=== PATIENT | female | born 1995 | race Caucasian/White ===

== ENCOUNTER → 2017-04-22 | Outpatient (CLI) | payer OTHER ==
[~2017-04-22] MED LIST: ACET325 PO; ACET500 PO; ALBU4; ALBU4 INH; ALBU4 PO; ALBU90OI INH; ALBU90OI6 INH; ALBU90OI61 INH; AMOCLA400S PO; AMOCLA875 PO; AMOX500 PO; AMOX875 PO; AMPDEX5 PO; ANTIBIOTICS; ARIP10 PO; ARIP30 PO; AZIT250 PO; Augmentin 500-1 EACH PO; Augmentin600 MG/5 M PO; BACPOLTO30 TOP; CALCA500CH PO; CEFD300 PO; CEFP200 PO; CEPH500 PO; CIPR500 PO; CLOT1TC TOP; CODACE30 PO; CYCL10 PO; Cefdinir300 MG PO; Cipro250 MG PO; Cipro250 MG/5 M PO; Cipro500 MG PO; Crutch1 EACH MISC; DOC250 PO; DOCU100 PO; DONE5 PO; DOXA1 PO; DOXA2 PO; DOXY100 PO; DOXY100T53 PO; Diflucan100 MG PO; ERYT.5TO LEFTEYE; ERYT250 PO; ERYT500 PO; FERR325; FERSU300 PO; FLUC150A PO; FLUO10 PO; Flagyl500 MG PO; HYDACE5 PO; HYDHCL25 PO; HYDPAM50 PO; HYDR120LO TOP; HYDR1TAB94 PO; HYDR25SUP PR; IBUP400 PO; IBUP600 PO; IBUP800 PO; IMIP10 PO; LEVFLO500 PO; LITH300C PO; MACRODANTIN; MAGCIT300 PO; MECL12.5 PO; MEDR150I IM; METCAR500 PO; METCAR750 PO; METPHE18ER; MINE10T PO; MIRT15 PO; MIRT30 PO; MULVITMINE PO; Macrobid 100 M100 MG PO; Mirena1 EACH; Mobic15 MG PO; NAPR500; NAPR500 PO; NITR100CA PO; NYST100TC TOP; Naprosyn500 MG PO; Norflex100 MG PO; Nystatin100000 UN1 PO; OMEPRAZOLE MAGN20 MG PO; ONDA4 PO; ONDA4ODT; ONDA4ODT MM; ONDA8ODT MM; OXYACE5T PO; OXYB5 PO; OXYC5 PO; PARO30 PO; PHENA100 PO; PHENA200 PO; PHENERGAN; POLY17UD; POLY17UD PO; PRAZ1 PO; PRENZ PO; PROM25 PO; PROZ; Percocet 5-3251 EACH PO; Prednisone20 MG PO; Pyridium100 MG PO; Pyridium200 MG PO; QUET200 PO; REMERON; RXHYDACE PO; RXONDA4ODT MM; RXOXYACE PO; RXPROM25 PO; RXPROM25S PR; SENN187 PO; SEPTRA; SEPTRA PO; SERT100 PO; SOMA250 MG PO; SULTRIDS PO; SULTRIEL PO; SULTRISS PO; SUMA25 PO; TETR250 PO; TOLT4 PO; TRAM50 PO; TRIM100 PO; Tylenol325 MG PO; Verotin-Gr Cap1 EACH; Verotin-Gr Cap1 EACH PO; Vistaril25 MG PO; ZOLP5 PO; Zithromax250 MG PO; Zofran Odt4 MG PO; Zofran Odt4 MG SL; Zofran Odt8 MG SL; Zofran4 MG; Zofran4 MG PO; [UNRECOGNIZED DRUG - OTHER] PO
== END ==
LOC: LAB SHORT 14:30
DX: N39.0 Urinary tract infection, site not specified (principal)
CPT/HCPCS: 87077; 87086; 87186

== ENCOUNTER → 2017-05-29 | Outpatient (CLI) | payer OTHER ==
[2017-05-29 18:48] LABS: BASOPHILS ABSOLUTE AUTO 0.02 K/mm3 (0.00-0.23); BASOPHILS PERCENT AUTO 0 % (0-2); EOSINOPHILS ABSOLUTE AUTO 0.35 K/mm3 (0.00-0.68); EOSINOPHILS PERCENT AUTO 4 % (0-6); Hematocrit 38.5 % (33.0-51.0); Hemoglobin 12.6 g/dL (11.5-16.0); IMMATURE GRAN ABSOLUTE AUTO 0.01 K/mm3 (0.00-0.10); IMMATURE GRAN PERCENT AUTO 0 % (0-1); LYMPHOCYTES ABSOLUTE AUTO 1.77 K/mm3 (0.84-5.20); LYMPHOCYTES PERCENT AUTO 21 % (21-46); MONOCYTES ABSOLUTE AUTO 0.53 K/mm3 (0.16-1.47); MONOCYTES PERCENT AUTO 6 % (4-13); Mean Corpuscular HGB 30.4 pg (26.0-34.0); Mean Corpuscular HGB Conc 32.7 g/dL (31.5-36.5); Mean Corpuscular Volume 93 fL (80-100); Mean Platelet Volume 10.9 fL (9.1-12.4); NEUTROPHILS ABSOLUTE AUTO 5.84 K/mm3 (1.96-9.15); NEUTROPHILS PERCENT AUTO 69 % (41-73); Platelet Count 281 K/mm3 (150-400); RDW Coefficient Variation 13.4 % (11.7-14.2); RDW Standard Deviation 46.1 fL (35.1-46.3); Red Blood Cell Count 4.14 M/mm3 (3.80-5.20); White Blood Cell Count 8.52 K/mm3 (4.00-11.30)
[2017-05-29 19:01] LABS: Alanine Aminotransfer (ALT/SGP 16 U/L (12-78); Albumin, Blood 3.9 g/dL (3.4-5.0); Alk Phos 69 U/L (40-126); Anion Gap 11 mmol/L (6-16); Aspartate Aminotrans (AST/SGOT 8 U/L (12-37); Bilirubin, Total 0.2 mg/dL (0.1-1.0); Blood Urea Nitrogen 6 mg/dL (8-24); Bun/Creatinine Ratio 9.2 (12.0-20.0); CO2, Blood 25 mmol/L (21-32); Chloride, Blood 105 mmol/L (98-108); Creatinine, Blood 0.65 mg/dL (0.40-1.00); Globulin, Blood 4.1 g/dL (2.2-4.0); Glomerular Filtration Rate >60 (60-); Glucose, Blood 93 mg/dL (70-99); Potassium, Blood 4.1 mmol/L (3.5-5.5); Sodium, Blood 141 mmol/L (136-145)
== END ==
LOC: LAB SHORT 18:42
PROVIDERS: Family Medicine
DX: N39.0 Urinary tract infection, site not specified (principal)
CPT/HCPCS: 80053; 85025; 87070; 87077; 87086; 87186; 87205

== ENCOUNTER 2018-02-07 23:15 | Emergency (ER) | payer OTHER ==
[~2018-02-07] VITALS: Ht 167.6 cm; Wt 90.7 kg
[~2018-02-07 23:15] MED LIST changes: -Flagyl500 MG PO; -Prednisone20 MG PO
[2018-02-08] MEDS ORDERED: Prednisone20 MG PO (03:03)
== END 2018-02-08 03:15 | disposition home or self-care (01) ==
LOC: ER 23:15
DX: J45.901 Unspecified asthma with (acute) exacerbation (principal); F31.9 Bipolar disorder, unspecified; F41.9 Anxiety disorder, unspecified; Z88.0 Allergy status to penicillin; Z91.040 Latex allergy status; Z91.018 Allergy to other foods; Z88.2 Allergy status to sulfonamides; Z88.1 Allergy status to other antibiotic agents; Z88.8 Allergy status to other drugs, medicaments and biological substances; Z79.899 Other long term (current) drug therapy; Z79.51 Long term (current) use of inhaled steroids
CPT/HCPCS: 71046; 94640; 99283-25

== ENCOUNTER → 2018-04-05 | Outpatient (CLI) | payer OTHER ==
[~2018-04-05] MED LIST changes: +Flagyl500 MG PO; +PYRI100 PO; +Prednisone20 MG PO; +VENL37.5ER PO; +Vibramycin100 MG PO
== END | disposition home or self-care (01) ==
LOC: LAB EV 13:25 → LAB SHORT 13:25
DX: N39.0 Urinary tract infection, site not specified (principal)
CPT/HCPCS: 87077; 87086; 87186

== ENCOUNTER 2018-04-16 11:35 | Emergency (ER) | payer OTHER ==
[~2018-04-16] VITALS: Ht 167.6 cm; Wt 86.2 kg
[~2018-04-16 11:35] MED LIST changes: -PYRI100 PO; -VENL37.5ER PO; -Vibramycin100 MG PO
[2018-04-16 12:17] LABS: BASOPHILS ABSOLUTE AUTO 0.02 K/mm3 (0.00-0.23); BASOPHILS PERCENT AUTO 0 % (0-2); EOSINOPHILS ABSOLUTE AUTO 0.21 K/mm3 (0.00-0.68); EOSINOPHILS PERCENT AUTO 4 % (0-6); Hemoglobin 13.2 g/dL (11.5-16.0); IMMATURE GRAN ABSOLUTE AUTO 0.01 K/mm3 (0.00-0.10); IMMATURE GRAN PERCENT AUTO 0 % (0-1); LYMPHOCYTES ABSOLUTE AUTO 1.45 K/mm3 (0.84-5.20); LYMPHOCYTES PERCENT AUTO 24 % (21-46); MONOCYTES ABSOLUTE AUTO 0.48 K/mm3 (0.16-1.47); MONOCYTES PERCENT AUTO 8 % (4-13); Mean Corpuscular HGB 30.4 pg (26.0-34.0); Mean Corpuscular HGB Conc 32.2 g/dL (31.5-36.5); Mean Corpuscular Volume 95 fL (80-100); Mean Platelet Volume 11.7 fL (9.1-12.4); NEUTROPHILS ABSOLUTE AUTO 3.79 K/mm3 (1.96-9.15); NEUTROPHILS PERCENT AUTO 64 % (41-73); Platelet Count 235 K/mm3 (150-400); RDW Coefficient Variation 12.8 % (11.7-14.2); Red Blood Cell Count 4.34 M/mm3 (3.80-5.20); White Blood Cell Count 5.96 K/mm3 (4.00-11.30)
[2018-04-16 12:21] LABS: Source, Urine Clean Catch
[2018-04-16 12:27] LABS: Bilirubin, Urine Neg (Neg); Blood, Urine Neg (Neg); Glucose Qualitative, Urine Neg (Neg); Ketones, Urine Neg (Neg); Leukocyte Esterase, Urine Neg (Neg); Nitrite, Urine Neg (Neg); Protein, Urine Neg (Neg); Specific Gravity, Urine 1.005 (1.003-1.022); Urobilinogen, Urine NORM (Normal)
[2018-04-16 12:28] LABS: Appearance, Urine Clear (Clear); Color, Urine Yellow (P-Yellow)
[2018-04-16 12:29] LABS: Alanine Aminotransfer (ALT/SGP 27 U/L (12-78); Alk Phos 71 U/L (50-136); Anion Gap 6 mmol/L (6-16); Aspartate Aminotrans (AST/SGOT 18 U/L (12-37); Bilirubin, Total 0.5 mg/dL (0.1-1.0); Blood Urea Nitrogen 7 mg/dL (8-24); Bun/Creatinine Ratio 9.6 (12.0-20.0); CO2, Blood 23 mmol/L (21-32); Calcium, Blood 8.4 mg/dL (8.5-10.1); Chloride, Blood 110 mmol/L (98-108); Creatinine, Blood 0.73 mg/dL (0.40-1.00); Globulin, Blood 3.9 g/dL (2.2-4.0); Glomerular Filtration Rate >60 (60-); Glucose, Blood 90 mg/dL (70-99); Potassium, Blood 3.8 mmol/L (3.5-5.5); Sodium, Blood 139 mmol/L (136-145); Total Protein, Blood 7.9 g/dL (6.4-8.2)
[2018-04-16] MEDS ORDERED: VENL37.5ER PO (13:39)
[2018-04-16] MEDS ORDERED: PYRI100 PO (14:24)
[2018-04-16] MEDS ORDERED: MECL12.5 PO (14:24)
== END 2018-04-16 14:32 | disposition home or self-care (01) ==
LOC: ER 11:35
PROVIDERS: Physician Assistant
DX: O99.89 Other specified diseases and conditions complicating pregnancy, childbirth and the puerperium (principal); R10.9 Unspecified abdominal pain; Z88.0 Allergy status to penicillin; Z91.040 Latex allergy status; Z88.2 Allergy status to sulfonamides; Z88.1 Allergy status to other antibiotic agents; Z79.899 Other long term (current) drug therapy; Z79.52 Long term (current) use of systemic steroids; O99.511 Diseases of the respiratory system complicating pregnancy, first trimester; J45.909 Unspecified asthma, uncomplicated; O99.341 Other mental disorders complicating pregnancy, first trimester; F31.9 Bipolar disorder, unspecified; F43.10 Post-traumatic stress disorder, unspecified
CPT/HCPCS: 36415; 76801; 76817; 80053; 81003; 81025; 84702; 85025; 99284-25; J2405

== ENCOUNTER 2018-04-22 20:49 | Emergency (ER) | payer OTHER ==
[~2018-04-22] VITALS: Ht 167.6 cm; Wt 86.2 kg
[~2018-04-22 20:49] MED LIST changes: +PYRI100 PO; +VENL37.5ER PO
[2018-04-22 22:38] LABS: BASOPHILS ABSOLUTE AUTO 0.02 K/mm3 (0.00-0.23); BASOPHILS PERCENT AUTO 0 % (0-2); EOSINOPHILS ABSOLUTE AUTO 0.21 K/mm3 (0.00-0.68); EOSINOPHILS PERCENT AUTO 2 % (0-6); Hematocrit 37.5 % (33.0-51.0); IMMATURE GRAN ABSOLUTE AUTO 0.02 K/mm3 (0.00-0.10); IMMATURE GRAN PERCENT AUTO 0 % (0-1); LYMPHOCYTES ABSOLUTE AUTO 1.85 K/mm3 (0.84-5.20); LYMPHOCYTES PERCENT AUTO 20 % (21-46); MONOCYTES ABSOLUTE AUTO 0.58 K/mm3 (0.16-1.47); MONOCYTES PERCENT AUTO 6 % (4-13); Mean Corpuscular HGB 30.5 pg (26.0-34.0); Mean Corpuscular Volume 95 fL (80-100); Mean Platelet Volume 11.7 fL (9.1-12.4); NEUTROPHILS ABSOLUTE AUTO 6.83 K/mm3 (1.96-9.15); NEUTROPHILS PERCENT AUTO 72 % (41-73); Platelet Count 226 K/mm3 (150-400); RDW Coefficient Variation 12.6 % (11.7-14.2); RDW Standard Deviation 45.1 fL (35.1-46.3); Red Blood Cell Count 3.94 M/mm3 (3.80-5.20); White Blood Cell Count 9.51 K/mm3 (4.00-11.30)
[2018-04-22 23:00] LABS: Alanine Aminotransfer (ALT/SGP 32 U/L (12-78); Albumin, Blood 3.8 g/dL (3.4-5.0); Alk Phos 67 U/L (50-136); Anion Gap 7 mmol/L (6-16); Aspartate Aminotrans (AST/SGOT 19 U/L (12-37); Bilirubin, Total 0.2 mg/dL (0.1-1.0); Blood Urea Nitrogen 10 mg/dL (8-24); Bun/Creatinine Ratio 15.2 (12.0-20.0); CO2, Blood 24 mmol/L (21-32); Calcium, Blood 8.1 mg/dL (8.5-10.1); Chloride, Blood 108 mmol/L (98-108); Creatinine, Blood 0.66 mg/dL (0.40-1.00); Globulin, Blood 3.7 g/dL (2.2-4.0); Glomerular Filtration Rate >60 (60-); Glucose, Blood 81 mg/dL (70-99); Potassium, Blood 3.9 mmol/L (3.5-5.5); Sodium, Blood 139 mmol/L (136-145); Total Protein, Blood 7.5 g/dL (6.4-8.2)
[2018-04-22 23:16] LABS: Beta HCG, Quantitative, Serum 1571 mIU/mL (0-3)
== END 2018-04-23 00:02 | disposition home or self-care (01) ==
LOC: ER 20:49
PROVIDERS: Physician Assistant
DX: O20.8 Other hemorrhage in early pregnancy (principal); Z88.0 Allergy status to penicillin; Z91.040 Latex allergy status; Z88.2 Allergy status to sulfonamides; Z88.1 Allergy status to other antibiotic agents; Z79.899 Other long term (current) drug therapy; O99.511 Diseases of the respiratory system complicating pregnancy, first trimester; J45.909 Unspecified asthma, uncomplicated; O99.341 Other mental disorders complicating pregnancy, first trimester; F31.9 Bipolar disorder, unspecified; Z3A.01 Less than 8 weeks gestation of pregnancy
CPT/HCPCS: 36415; 76801; 76817; 80053; 84702; 85025; 99284-25

== ENCOUNTER 2018-05-09 21:53 | Emergency (ER) | payer OTHER ==
[~2018-05-09] VITALS: Ht 167.6 cm; Wt 93.9 kg
[2018-05-09 22:45] LABS: BASOPHILS ABSOLUTE AUTO 0.01 K/mm3 (0.00-0.23); BASOPHILS PERCENT AUTO 0 % (0-2); EOSINOPHILS ABSOLUTE AUTO 0.27 K/mm3 (0.00-0.68); EOSINOPHILS PERCENT AUTO 3 % (0-6); Hematocrit 38.4 % (33.0-51.0); Hemoglobin 12.3 g/dL (11.5-16.0); IMMATURE GRAN ABSOLUTE AUTO 0.02 K/mm3 (0.00-0.10); IMMATURE GRAN PERCENT AUTO 0 % (0-1); LYMPHOCYTES ABSOLUTE AUTO 2.38 K/mm3 (0.84-5.20); LYMPHOCYTES PERCENT AUTO 23 % (21-46); MONOCYTES ABSOLUTE AUTO 0.77 K/mm3 (0.16-1.47); MONOCYTES PERCENT AUTO 7 % (4-13); Mean Corpuscular HGB 30.4 pg (26.0-34.0); Mean Corpuscular Volume 95 fL (80-100); Mean Platelet Volume 11.8 fL (9.1-12.4); NEUTROPHILS ABSOLUTE AUTO 6.97 K/mm3 (1.96-9.15); NEUTROPHILS PERCENT AUTO 67 % (41-73); Platelet Count 268 K/mm3 (150-400); RDW Coefficient Variation 12.6 % (11.7-14.2); RDW Standard Deviation 44.4 fL (35.1-46.3); Red Blood Cell Count 4.05 M/mm3 (3.80-5.20); White Blood Cell Count 10.42 K/mm3 (4.00-11.30)
[2018-05-09 23:03] LABS: Alanine Aminotransfer (ALT/SGP 57 U/L (12-78); Albumin, Blood 3.9 g/dL (3.4-5.0); Alk Phos 74 U/L (50-136); Anion Gap 8 mmol/L (6-16); Aspartate Aminotrans (AST/SGOT 25 U/L (12-37); Bilirubin, Total 0.2 mg/dL (0.1-1.0); Blood Urea Nitrogen 9 mg/dL (8-24); Bun/Creatinine Ratio 11.9 (12.0-20.0); CO2, Blood 25 mmol/L (21-32); Calcium, Blood 8.2 mg/dL (8.5-10.1); Chloride, Blood 110 mmol/L (98-108); Creatinine, Blood 0.76 mg/dL (0.40-1.00); Globulin, Blood 3.9 g/dL (2.2-4.0); Glomerular Filtration Rate >60 (60-); Glucose, Blood 83 mg/dL (70-99); Potassium, Blood 3.6 mmol/L (3.5-5.5); Sodium, Blood 143 mmol/L (136-145); Total Protein, Blood 7.8 g/dL (6.4-8.2)
== END 2018-05-10 00:04 | disposition home or self-care (01) ==
LOC: ER 21:53
PROVIDERS: Emergency Medicine
DX: O03.9 Complete or unspecified spontaneous abortion without complication (principal); J45.909 Unspecified asthma, uncomplicated; F31.9 Bipolar disorder, unspecified; Z88.0 Allergy status to penicillin; Z91.040 Latex allergy status; Z88.8 Allergy status to other drugs, medicaments and biological substances; Z88.2 Allergy status to sulfonamides; Z88.1 Allergy status to other antibiotic agents; Z79.899 Other long term (current) drug therapy
CPT/HCPCS: 36415; 76801; 76817; 80053; 84702; 84703; 85025; 86900; 86901; 88305; 96361; 96374; 96375; 99284-25; J2405; J3010; J7030

== ENCOUNTER 2018-05-12 20:47 | Emergency (ER) | payer OTHER ==
[~2018-05-12] VITALS: Ht 167.6 cm; Wt 93.9 kg
[2018-05-12 21:21] LABS: Source, Urine Clean Catch
[2018-05-12 21:29] LABS: Appearance, Urine Clear (Clear); Bilirubin, Urine Neg (Neg); Blood, Urine 4+ (Neg); Color, Urine Red (P-Yellow); Glucose Qualitative, Urine Neg (Neg); Ketones, Urine Neg (Neg); Leukocyte Esterase, Urine 2+ (Neg); Nitrite, Urine Neg (Neg); Protein, Urine 1+ (Neg); Specific Gravity, Urine 1.015 (1.003-1.022); Urobilinogen, Urine NORM (Normal)
[2018-05-12 21:31] LABS: BASOPHILS ABSOLUTE AUTO 0.02 K/mm3 (0.00-0.23); BASOPHILS PERCENT AUTO 0 % (0-2); EOSINOPHILS ABSOLUTE AUTO 0.35 K/mm3 (0.00-0.68); EOSINOPHILS PERCENT AUTO 4 % (0-6); Hematocrit 39.1 % (33.0-51.0); Hemoglobin 12.5 g/dL (11.5-16.0); IMMATURE GRAN ABSOLUTE AUTO 0.02 K/mm3 (0.00-0.10); IMMATURE GRAN PERCENT AUTO 0 % (0-1); LYMPHOCYTES ABSOLUTE AUTO 1.96 K/mm3 (0.84-5.20); LYMPHOCYTES PERCENT AUTO 22 % (21-46); MONOCYTES ABSOLUTE AUTO 0.58 K/mm3 (0.16-1.47); MONOCYTES PERCENT AUTO 7 % (4-13); Mean Corpuscular HGB 30.2 pg (26.0-34.0); Mean Corpuscular Volume 94 fL (80-100); Mean Platelet Volume 11.9 fL (9.1-12.4); NEUTROPHILS ABSOLUTE AUTO 6.03 K/mm3 (1.96-9.15); NEUTROPHILS PERCENT AUTO 67 % (41-73); Platelet Count 261 K/mm3 (150-400); RDW Coefficient Variation 12.8 % (11.7-14.2); RDW Standard Deviation 44.3 fL (35.1-46.3); Red Blood Cell Count 4.14 M/mm3 (3.80-5.20); White Blood Cell Count 8.96 K/mm3 (4.00-11.30)
[2018-05-12 21:54] LABS: Alanine Aminotransfer (ALT/SGP 40 U/L (12-78); Albumin, Blood 3.8 g/dL (3.4-5.0); Albumin/Globulin Ratio 0.9 (0.8-1.8); Alk Phos 68 U/L (50-136); Anion Gap 7 mmol/L (6-16); Aspartate Aminotrans (AST/SGOT 16 U/L (12-37); Beta HCG, Quantitative, Serum 399 mIU/mL (0-3); Bilirubin, Total 0.3 mg/dL (0.1-1.0); Blood Urea Nitrogen 9 mg/dL (8-24); Bun/Creatinine Ratio 12.9 (12.0-20.0); CO2, Blood 25 mmol/L (21-32); Calcium, Blood 8.6 mg/dL (8.5-10.1); Chloride, Blood 109 mmol/L (98-108); Globulin, Blood 4.1 g/dL (2.2-4.0); Glomerular Filtration Rate >60 (60-); Glucose, Blood 69 mg/dL (70-99); Potassium, Blood 3.7 mmol/L (3.5-5.5); Sodium, Blood 141 mmol/L (136-145); Total Protein, Blood 7.9 g/dL (6.4-8.2)
[2018-05-12 22:08] LABS: Bacteria Few /hpf; Red Blood Cells, Urine 25-50 /hpf (0-2); Squamous Epithelial Cells Few /hpf (Few)
[2018-05-12] MEDS ORDERED: ONDA4ODT MM (23:18)
[2018-05-12] MEDS ORDERED: Vibramycin100 MG PO (23:18)
== END 2018-05-12 23:57 | disposition home or self-care (01) ==
LOC: ER 20:47
PROVIDERS: Physician Assistant
DX: O03.9 Complete or unspecified spontaneous abortion without complication (principal); Z88.0 Allergy status to penicillin; Z91.040 Latex allergy status; Z88.2 Allergy status to sulfonamides; Z88.1 Allergy status to other antibiotic agents; Z79.899 Other long term (current) drug therapy; F31.9 Bipolar disorder, unspecified; J45.909 Unspecified asthma, uncomplicated
CPT/HCPCS: 36415; 76801; 76817; 80053; 81001; 84702; 85025; 87086; 99284-25

== ENCOUNTER 2018-05-19 22:11 | Emergency (ER) | payer OTHER ==
[~2018-05-19] VITALS: Ht 167.6 cm; Wt 90.7 kg
[~2018-05-19 22:11] MED LIST changes: +Vibramycin100 MG PO
[2018-05-20 00:42] LABS: BASOPHILS ABSOLUTE AUTO 0.03 K/mm3 (0.00-0.23); BASOPHILS PERCENT AUTO 0 % (0-2); EOSINOPHILS ABSOLUTE AUTO 0.19 K/mm3 (0.00-0.68); EOSINOPHILS PERCENT AUTO 2 % (0-6); Hematocrit 37.6 % (33.0-51.0); IMMATURE GRAN ABSOLUTE AUTO 0.02 K/mm3 (0.00-0.10); IMMATURE GRAN PERCENT AUTO 0 % (0-1); LYMPHOCYTES ABSOLUTE AUTO 2.55 K/mm3 (0.84-5.20); LYMPHOCYTES PERCENT AUTO 23 % (21-46); MONOCYTES PERCENT AUTO 8 % (4-13); Mean Corpuscular HGB 30.2 pg (26.0-34.0); Mean Corpuscular HGB Conc 31.9 g/dL (31.5-36.5); Mean Corpuscular Volume 95 fL (80-100); Mean Platelet Volume 11.8 fL (9.1-12.4); NEUTROPHILS PERCENT AUTO 66 % (41-73); Platelet Count 268 K/mm3 (150-400); RDW Coefficient Variation 12.1 % (11.7-14.2); RDW Standard Deviation 42.7 fL (35.1-46.3); Red Blood Cell Count 3.97 M/mm3 (3.80-5.20); Source, Urine Clean Catch; White Blood Cell Count 10.99 K/mm3 (4.00-11.30)
[2018-05-20 00:48] LABS: Bilirubin, Urine Neg (Neg); Blood, Urine 4+ (Neg); Glucose Qualitative, Urine Neg (Neg); Ketones, Urine Neg (Neg); Leukocyte Esterase, Urine 1+ (Neg); Nitrite, Urine Neg (Neg); Protein, Urine 1+ (Neg); Specific Gravity, Urine 1.015 (1.003-1.022); Urobilinogen, Urine NORM (Normal)
[2018-05-20 00:51] LABS: Appearance, Urine Hazy (Clear); Color, Urine Yellow (P-Yellow)
[2018-05-20 00:55] LABS: Bacteria Many /hpf; Red Blood Cells, Urine 0-2 /hpf (0-2); Squamous Epithelial Cells Many /hpf (Few)
[2018-05-20 00:57] LABS: Alanine Aminotransfer (ALT/SGP 32 U/L (12-78); Albumin, Blood 3.9 g/dL (3.4-5.0); Alk Phos 69 U/L (50-136); Anion Gap 8 mmol/L (6-16); Aspartate Aminotrans (AST/SGOT 16 U/L (12-37); Beta HCG, Quantitative, Serum 103 mIU/mL (0-3); Bilirubin, Total 0.2 mg/dL (0.1-1.0); Blood Urea Nitrogen 11 mg/dL (8-24); Bun/Creatinine Ratio 13.6 (12.0-20.0); CO2, Blood 26 mmol/L (21-32); Calcium, Blood 8.6 mg/dL (8.5-10.1); Chloride, Blood 108 mmol/L (98-108); Creatinine, Blood 0.81 mg/dL (0.40-1.00); Globulin, Blood 3.9 g/dL (2.2-4.0); Glomerular Filtration Rate >60 (60-); Glucose, Blood 95 mg/dL (70-99); Potassium, Blood 3.7 mmol/L (3.5-5.5); Sodium, Blood 142 mmol/L (136-145); Total Protein, Blood 7.8 g/dL (6.4-8.2)
== END 2018-05-20 01:55 | disposition home or self-care (01) ==
LOC: ER 22:11
PROVIDERS: Emergency Medicine
DX: O03.9 Complete or unspecified spontaneous abortion without complication (principal); Z88.0 Allergy status to penicillin; Z91.040 Latex allergy status; Z88.2 Allergy status to sulfonamides; Z88.1 Allergy status to other antibiotic agents; Z79.899 Other long term (current) drug therapy; F31.9 Bipolar disorder, unspecified
CPT/HCPCS: 80053; 81001; 84702; 85025; 87086; 99284

== ENCOUNTER → 2018-06-14 | Outpatient (CLI) | payer OTHER ==
[~2018-06-14] MED LIST changes: -PRAZ1 PO; +PRAZ2 PO; +VENL150ER PO; -VENL37.5ER PO
== END | disposition home or self-care (01) ==
LOC: LAB SHORT 17:34 → LAB EV 17:34
DX: R50.9 Fever, unspecified (principal)
CPT/HCPCS: 87070

== ENCOUNTER → 2018-06-16 | Outpatient (CLI) | payer OTHER ==
[2018-06-16 15:55] LABS: BASOPHILS ABSOLUTE AUTO 0.01 K/mm3 (0.00-0.23); BASOPHILS PERCENT AUTO 0 % (0-2); EOSINOPHILS ABSOLUTE AUTO 0.08 K/mm3 (0.00-0.68); EOSINOPHILS PERCENT AUTO 1 % (0-6); Hematocrit 36.9 % (33.0-51.0); Hemoglobin 12.1 g/dL (11.5-16.0); IMMATURE GRAN ABSOLUTE AUTO 0.01 K/mm3 (0.00-0.10); IMMATURE GRAN PERCENT AUTO 0 % (0-1); LYMPHOCYTES ABSOLUTE AUTO 0.61 K/mm3 (0.84-5.20); LYMPHOCYTES PERCENT AUTO 10 % (21-46); MONOCYTES PERCENT AUTO 11 % (4-13); Mean Corpuscular HGB 30.1 pg (26.0-34.0); Mean Corpuscular HGB Conc 32.8 g/dL (31.5-36.5); Mean Corpuscular Volume 92 fL (80-100); Mean Platelet Volume 12.1 fL (9.1-12.4); NEUTROPHILS ABSOLUTE AUTO 4.71 K/mm3 (1.96-9.15); NEUTROPHILS PERCENT AUTO 77 % (41-73); Platelet Count 175 K/mm3 (150-400); RDW Coefficient Variation 12.7 % (11.7-14.2); RDW Standard Deviation 42.5 fL (35.1-46.3); Red Blood Cell Count 4.02 M/mm3 (3.80-5.20); White Blood Cell Count 6.12 K/mm3 (4.00-11.30)
[2018-06-16 16:00] LABS: Anion Gap 10 mmol/L (6-16); Blood Urea Nitrogen 7 mg/dL (8-24); Bun/Creatinine Ratio 8.8 (12.0-20.0); CO2, Blood 26 mmol/L (21-32); Calcium, Blood 8.1 mg/dL (8.5-10.1); Chloride, Blood 105 mmol/L (98-108); Glomerular Filtration Rate >60 (60-); Glucose, Blood 86 mg/dL (70-99); Potassium, Blood 3.9 mmol/L (3.5-5.5); Sodium, Blood 141 mmol/L (136-145)
== END ==
LOC: LAB EV 15:51 → LAB SHORT 15:51
PROVIDERS: Physician Assistant Surgical
DX: R42 Dizziness and giddiness (principal); R07.81 Pleurodynia
CPT/HCPCS: 80048; 85025; 85379

== ENCOUNTER → 2018-07-27 | Outpatient (CLI) | payer OTHER | END | disposition home or self-care (01) | LOC: LAB EV 16:45 → LAB SHORT 16:45 | DX: N39.0 Urinary tract infection, site not specified (principal) | CPT/HCPCS: 87077; 87086; 87186 ==

== ENCOUNTER 2018-08-03 16:16 | Emergency (ER) | payer OTHER ==
[~2018-08-03] VITALS: Ht 167.6 cm; Wt 90.7 kg
[2018-08-03 16:32] LABS: Source, Urine Clean Catch
[2018-08-03 16:36] LABS: Appearance, Urine Clear (Clear); Bilirubin, Urine Neg (Neg); Blood, Urine Neg (Neg); Color, Urine Yellow (P-Yellow); Glucose Qualitative, Urine Neg (Neg); Ketones, Urine Neg (Neg); Leukocyte Esterase, Urine 1+ (Neg); Nitrite, Urine Neg (Neg); Protein, Urine Neg (Neg); Urobilinogen, Urine NORM (Normal)
[2018-08-03 16:50] LABS: Bacteria Few /hpf; Red Blood Cells, Urine 0-2 /hpf (0-2); Squamous Epithelial Cells Many /hpf (Few)
[2018-08-03] MEDS ORDERED: PRAZ1 PO (17:37)
[2018-08-03] MEDS ORDERED: ZOLP5 PO (17:49)
== END 2018-08-03 18:20 | disposition home or self-care (01) ==
LOC: ER 16:16
PROVIDERS: Physician Assistant
DX: B37.3 Candidiasis of vulva and vagina (principal); J45.909 Unspecified asthma, uncomplicated; F31.9 Bipolar disorder, unspecified; Z87.440 Personal history of urinary (tract) infections; Z88.0 Allergy status to penicillin; Z88.1 Allergy status to other antibiotic agents; Z88.5 Allergy status to narcotic agent; Z88.8 Allergy status to other drugs, medicaments and biological substances; Z79.899 Other long term (current) drug therapy
CPT/HCPCS: 81001; 81025; 87086

== ENCOUNTER 2018-08-10 15:42 | Emergency (ER) | payer OTHER ==
[~2018-08-10] VITALS: Ht 167.6 cm; Wt 90.7 kg
[~2018-08-10 15:42] MED LIST changes: +PRAZ1 PO
[2018-08-10 16:09] LABS: Source, Urine Clean Catch
[2018-08-10 16:25] LABS: Bilirubin, Urine Neg (Neg); Blood, Urine 3+ (Neg); Glucose Qualitative, Urine Neg (Neg); Ketones, Urine Neg (Neg); Leukocyte Esterase, Urine 1+ (Neg); Nitrite, Urine Neg (Neg); Protein, Urine Neg (Neg); Urobilinogen, Urine NORM (Normal)
[2018-08-10 16:28] LABS: BASOPHILS ABSOLUTE AUTO 0.03 K/mm3 (0.00-0.23); BASOPHILS PERCENT AUTO 0 % (0-2); EOSINOPHILS ABSOLUTE AUTO 0.38 K/mm3 (0.00-0.68); EOSINOPHILS PERCENT AUTO 3 % (0-6); Hematocrit 39.1 % (33.0-51.0); Hemoglobin 12.2 g/dL (11.5-16.0); IMMATURE GRAN ABSOLUTE AUTO 0.04 K/mm3 (0.00-0.10); IMMATURE GRAN PERCENT AUTO 0 % (0-1); LYMPHOCYTES ABSOLUTE AUTO 1.82 K/mm3 (0.84-5.20); LYMPHOCYTES PERCENT AUTO 16 % (21-46); MONOCYTES ABSOLUTE AUTO 0.77 K/mm3 (0.16-1.47); MONOCYTES PERCENT AUTO 7 % (4-13); Mean Corpuscular HGB 29.3 pg (26.0-34.0); Mean Corpuscular HGB Conc 31.2 g/dL (31.5-36.5); Mean Corpuscular Volume 94 fL (80-100); Mean Platelet Volume 11.8 fL (9.1-12.4); NEUTROPHILS ABSOLUTE AUTO 8.16 K/mm3 (1.96-9.15); NEUTROPHILS PERCENT AUTO 73 % (41-73); Platelet Count 274 K/mm3 (150-400); RDW Coefficient Variation 13.5 % (11.7-14.2); RDW Standard Deviation 46.5 fL (35.1-46.3); Red Blood Cell Count 4.17 M/mm3 (3.80-5.20)
[2018-08-10 16:34] LABS: Alanine Aminotransfer (ALT/SGP 36 U/L (12-78); Albumin, Blood 4.1 g/dL (3.4-5.0); Alk Phos 84 U/L (50-136); Anion Gap 7 mmol/L (6-16); Aspartate Aminotrans (AST/SGOT 28 U/L (12-37); Bilirubin, Total 0.3 mg/dL (0.1-1.0); Blood Urea Nitrogen 12 mg/dL (8-24); CO2, Blood 26 mmol/L (21-32); Calcium, Blood 9.1 mg/dL (8.5-10.1); Chloride, Blood 108 mmol/L (98-108); Creatinine, Blood 0.75 mg/dL (0.40-1.00); Globulin, Blood 4.2 g/dL (2.2-4.0); Glomerular Filtration Rate >60 (60-); Glucose, Blood 77 mg/dL (70-99); Potassium, Blood 3.7 mmol/L (3.5-5.5); Sodium, Blood 141 mmol/L (136-145); Total Protein, Blood 8.3 g/dL (6.4-8.2)
[2018-08-10 16:37] LABS: Appearance, Urine Hazy (Clear); Color, Urine Yellow (P-Yellow)
[2018-08-10 16:39] LABS: Bacteria Few /hpf; Mucus Light (0-Heavy); Red Blood Cells, Urine 0-2 /hpf (0-2); Squamous Epithelial Cells Mod /hpf (Few)
[2018-08-10] MEDS ORDERED: IBUP400 PO (17:32)
== END 2018-08-10 18:01 | disposition home or self-care (01) ==
LOC: ER 15:42
PROVIDERS: Physician Assistant
DX: R10.32 Left lower quadrant pain (principal); Z88.0 Allergy status to penicillin; Z91.040 Latex allergy status; Z88.8 Allergy status to other drugs, medicaments and biological substances; Z88.2 Allergy status to sulfonamides; Z88.1 Allergy status to other antibiotic agents; Z79.899 Other long term (current) drug therapy; F31.9 Bipolar disorder, unspecified; J45.909 Unspecified asthma, uncomplicated
CPT/HCPCS: 36415; 76830; 76856; 80053; 81001; 83690; 84702; 85025; 87086; 96374; 99284-25; J1885

== ENCOUNTER 2018-08-24 22:20 | Emergency (ER) | payer OTHER ==
[~2018-08-24] VITALS: Ht 167.6 cm; Wt 90.7 kg
[2018-08-24 22:40] LABS: Source, Urine Clean Catch
[2018-08-24] MEDS ORDERED: CYCL10 PO (22:41)
[2018-08-24 22:44] LABS: Bilirubin, Urine Neg (Neg); Blood, Urine 1+ (Neg); Glucose Qualitative, Urine Neg (Neg); Ketones, Urine Neg (Neg); Leukocyte Esterase, Urine 3+ (Neg); Nitrite, Urine Pos (Neg); Protein, Urine Neg (Neg); Urobilinogen, Urine NORM (Normal)
[2018-08-24 22:53] LABS: Appearance, Urine Cloudy (Clear); Color, Urine Yellow (P-Yellow)
[2018-08-24 22:54] LABS: Bacteria Many /hpf; Red Blood Cells, Urine Rare /hpf (0-2); Squamous Epithelial Cells Few /hpf (Few); White Blood Cells, Urine 50-100 /hpf (0-5)
[2018-08-24] MEDS ORDERED: CEFP200 PO (23:07)
== END 2018-08-24 23:37 | disposition home or self-care (01) ==
LOC: ER 22:20
PROVIDERS: Physician Assistant
DX: N12 Tubulo-interstitial nephritis, not specified as acute or chronic (principal); Z88.0 Allergy status to penicillin; Z91.040 Latex allergy status; Z88.8 Allergy status to other drugs, medicaments and biological substances; Z88.2 Allergy status to sulfonamides; Z91.018 Allergy to other foods; Z88.1 Allergy status to other antibiotic agents; Z79.899 Other long term (current) drug therapy; F31.9 Bipolar disorder, unspecified; J45.909 Unspecified asthma, uncomplicated
CPT/HCPCS: 81001; 81025; 87077; 87086; 87186; 99283; A9270-GY

== ENCOUNTER 2018-09-13 22:59 | Emergency (ER) | payer OTHER ==
[~2018-09-13] VITALS: Ht 167.6 cm; Wt 97.1 kg
[2018-09-14 00:15] LABS: BASOPHILS ABSOLUTE AUTO 0.03 K/mm3 (0.00-0.23); BASOPHILS PERCENT AUTO 0 % (0-2); EOSINOPHILS PERCENT AUTO 4 % (0-6); Hematocrit 37.3 % (33.0-51.0); Hemoglobin 11.9 g/dL (11.5-16.0); IMMATURE GRAN ABSOLUTE AUTO 0.06 K/mm3 (0.00-0.10); IMMATURE GRAN PERCENT AUTO 0 % (0-1); LYMPHOCYTES ABSOLUTE AUTO 2.79 K/mm3 (0.84-5.20); LYMPHOCYTES PERCENT AUTO 21 % (21-46); MONOCYTES ABSOLUTE AUTO 0.82 K/mm3 (0.16-1.47); MONOCYTES PERCENT AUTO 6 % (4-13); Mean Corpuscular HGB 29.7 pg (26.0-34.0); Mean Corpuscular HGB Conc 31.9 g/dL (31.5-36.5); Mean Corpuscular Volume 93 fL (80-100); Mean Platelet Volume 11.6 fL (9.1-12.4); NEUTROPHILS ABSOLUTE AUTO 9.23 K/mm3 (1.96-9.15); NEUTROPHILS PERCENT AUTO 69 % (41-73); Platelet Count 277 K/mm3 (150-400); RDW Coefficient Variation 13.2 % (11.7-14.2); RDW Standard Deviation 45.3 fL (35.1-46.3); Red Blood Cell Count 4.01 M/mm3 (3.80-5.20); White Blood Cell Count 13.43 K/mm3 (4.00-11.30)
[2018-09-14 00:42] LABS: Source, Urine Clean Catch
[2018-09-14 00:45] LABS: Bilirubin, Urine Neg (Neg); Blood, Urine 1+ (Neg); Glucose Qualitative, Urine Neg (Neg); Ketones, Urine Neg (Neg); Leukocyte Esterase, Urine 2+ (Neg); Nitrite, Urine Pos (Neg); Protein, Urine Neg (Neg); Specific Gravity, Urine 1.015 (1.003-1.022); Urobilinogen, Urine NORM (Normal); pH, Urine 6.5 (5.0-8.0)
[2018-09-14 00:49] LABS: Appearance, Urine Cloudy (Clear); Color, Urine Yellow (P-Yellow)
[2018-09-14 00:52] LABS: Bacteria Many /hpf; Red Blood Cells, Urine 0-2 /hpf (0-2); Squamous Epithelial Cells Mod /hpf (Few); White Blood Cells, Urine TNTC /hpf (0-5)
[2018-09-14] MEDS ORDERED: ONDA4ODT MM (00:53)
== END 2018-09-14 01:41 | disposition home or self-care (01) ==
LOC: ER 22:59
PROVIDERS: Emergency Medicine
DX: O21.9 Vomiting of pregnancy, unspecified (principal); O99.89 Other specified diseases and conditions complicating pregnancy, childbirth and the puerperium; R10.30 Lower abdominal pain, unspecified; O99.511 Diseases of the respiratory system complicating pregnancy, first trimester; J45.909 Unspecified asthma, uncomplicated; O99.341 Other mental disorders complicating pregnancy, first trimester; F31.9 Bipolar disorder, unspecified; Z88.0 Allergy status to penicillin; Z91.040 Latex allergy status; Z88.8 Allergy status to other drugs, medicaments and biological substances; Z88.2 Allergy status to sulfonamides; Z91.018 Allergy to other foods; Z88.1 Allergy status to other antibiotic agents; Z79.899 Other long term (current) drug therapy; Z87.442 Personal history of urinary calculi; Z3A.01 Less than 8 weeks gestation of pregnancy
CPT/HCPCS: 36415; 76801; 76817; 81001; 84702; 85025; 86900; 86901; 87077; 87086; 87186; 96361; 96374; 99284-25; J2405; J7030

== ENCOUNTER 2018-10-07 23:07 | Emergency (ER) | payer OTHER ==
[~2018-10-07] VITALS: Ht 167.6 cm; Wt 95.7 kg
[2018-10-07] MEDS ORDERED: PRENATAL VITAM1 EAC1 PO (23:20)
[2018-10-07] MEDS ORDERED: SERT100 PO (23:20)
[2018-10-07] MEDS ORDERED: METO10 PO (23:21)
== END 2018-10-07 23:53 | disposition home or self-care (01) ==
LOC: ER 23:07
DX: S90.02XA Contusion of left ankle, initial encounter (principal); S90.32XA Contusion of left foot, initial encounter; W17.89XA Other fall from one level to another, initial encounter; Z88.0 Allergy status to penicillin; Z88.8 Allergy status to other drugs, medicaments and biological substances; Z88.1 Allergy status to other antibiotic agents; Z88.2 Allergy status to sulfonamides; Z91.040 Latex allergy status; Z79.899 Other long term (current) drug therapy; J45.909 Unspecified asthma, uncomplicated; F32.9 Major depressive disorder, single episode, unspecified
CPT/HCPCS: 73600; 73630; 99283-25

== ENCOUNTER → 2018-10-15 | Outpatient (CLI) | payer OTHER ==
[~2018-10-15] MED LIST changes: +DICLEGIS DR 101 EACH PO; +METO10 PO; +PRENATAL VITAM1 EAC1 PO
[2018-10-15 10:30] LABS: Source, Urine Clean Catch
[2018-10-15 13:05] LABS: Bilirubin, Urine Neg (Neg); Blood, Urine Neg (Neg); Glucose Qualitative, Urine Neg (Neg); Ketones, Urine Neg (Neg); Leukocyte Esterase, Urine 3+ (Neg); Nitrite, Urine Neg (Neg); Protein, Urine Neg (Neg); Specific Gravity, Urine 1.015 (1.003-1.022); Urobilinogen, Urine NORM (Normal)
[2018-10-15 13:23] LABS: Appearance, Urine Cloudy (Clear); Color, Urine Yellow (P-Yellow)
[2018-10-15 13:26] LABS: Bacteria Many /hpf; Red Blood Cells, Urine 0-2 /hpf (0-2); Squamous Epithelial Cells Many /hpf (Few)
[2018-10-15 13:27] LABS: Transitional Epithelial Cells Rare /hpf (0-Rare)
== END | disposition home or self-care (01) ==
LOC: LAB SHORT 10:20 → LAB 10:20
PROVIDERS: Obstetrics & Gynecology
DX: O23.40 Unspecified infection of urinary tract in pregnancy, unspecified trimester (principal)
CPT/HCPCS: 81001; 87086

== ENCOUNTER 2018-10-21 14:03 | Emergency (ER) | payer OTHER ==
[~2018-10-21] VITALS: Ht 167.6 cm; Wt 96.2 kg
[~2018-10-21 14:03] MED LIST changes: -DICLEGIS DR 101 EACH PO
[2018-10-21 14:42] LABS: BASOPHILS ABSOLUTE AUTO 0.01 K/mm3 (0.00-0.23); BASOPHILS PERCENT AUTO 0 % (0-2); EOSINOPHILS ABSOLUTE AUTO 0.16 K/mm3 (0.00-0.68); EOSINOPHILS PERCENT AUTO 2 % (0-6); Hematocrit 39.6 % (33.0-51.0); Hemoglobin 12.5 g/dL (11.5-16.0); IMMATURE GRAN ABSOLUTE AUTO 0.02 K/mm3 (0.00-0.10); IMMATURE GRAN PERCENT AUTO 0 % (0-1); LYMPHOCYTES ABSOLUTE AUTO 1.46 K/mm3 (0.84-5.20); LYMPHOCYTES PERCENT AUTO 15 % (21-46); MONOCYTES ABSOLUTE AUTO 0.64 K/mm3 (0.16-1.47); MONOCYTES PERCENT AUTO 7 % (4-13); Mean Corpuscular HGB 30.3 pg (26.0-34.0); Mean Corpuscular HGB Conc 31.6 g/dL (31.5-36.5); Mean Corpuscular Volume 96 fL (80-100); NEUTROPHILS ABSOLUTE AUTO 7.42 K/mm3 (1.96-9.15); NEUTROPHILS PERCENT AUTO 77 % (41-73); Platelet Count 204 K/mm3 (150-400); RDW Coefficient Variation 13.3 % (11.7-14.2); RDW Standard Deviation 47.4 fL (35.1-46.3); Red Blood Cell Count 4.13 M/mm3 (3.80-5.20); White Blood Cell Count 9.71 K/mm3 (4.00-11.30)
[2018-10-21 15:05] LABS: Source, Urine Clean Catch
[2018-10-21 15:07] LABS: Alanine Aminotransfer (ALT/SGP 29 U/L (12-78); Albumin, Blood 3.3 g/dL (3.4-5.0); Albumin/Globulin Ratio 0.7 (0.8-1.8); Alk Phos 94 U/L (50-136); Anion Gap 10 mmol/L (6-16); Aspartate Aminotrans (AST/SGOT 17 U/L (12-37); Bilirubin, Total 0.3 mg/dL (0.1-1.0); Blood Urea Nitrogen 7 mg/dL (8-24); Bun/Creatinine Ratio 11.4 (12.0-20.0); CO2, Blood 20 mmol/L (21-32); Calcium, Blood 8.8 mg/dL (8.5-10.1); Chloride, Blood 109 mmol/L (98-108); Creatinine, Blood 0.61 mg/dL (0.40-1.00); Globulin, Blood 4.7 g/dL (2.2-4.0); Glomerular Filtration Rate >60 (60-); Glucose, Blood 76 mg/dL (70-99); Sodium, Blood 139 mmol/L (136-145)
[2018-10-21 15:10] LABS: Bilirubin, Urine Neg (Neg); Blood, Urine 1+ (Neg); Glucose Qualitative, Urine Neg (Neg); Ketones, Urine Neg (Neg); Leukocyte Esterase, Urine 2+ (Neg); Nitrite, Urine Neg (Neg); Protein, Urine Neg (Neg); Urobilinogen, Urine 2+ (Normal)
[2018-10-21 15:15] LABS: Appearance, Urine Hazy (Clear); Color, Urine Yellow (P-Yellow)
[2018-10-21 15:17] LABS: Bacteria Mod /hpf; Red Blood Cells, Urine 0-2 /hpf (0-2); Squamous Epithelial Cells Many /hpf (Few)
[2018-10-21] MEDS ORDERED: DICLEGIS DR 101 EACH PO (18:38)
== END 2018-10-21 18:50 | disposition home or self-care (01) ==
LOC: ER 14:03
PROVIDERS: Physician Assistant
DX: O21.0 Mild hyperemesis gravidarum (principal); O99.341 Other mental disorders complicating pregnancy, first trimester; F31.9 Bipolar disorder, unspecified; O99.511 Diseases of the respiratory system complicating pregnancy, first trimester; J45.909 Unspecified asthma, uncomplicated; Z88.0 Allergy status to penicillin; Z91.040 Latex allergy status; Z88.8 Allergy status to other drugs, medicaments and biological substances; Z91.018 Allergy to other foods; Z88.2 Allergy status to sulfonamides; Z88.1 Allergy status to other antibiotic agents; Z79.899 Other long term (current) drug therapy; Z3A.11 11 weeks gestation of pregnancy
CPT/HCPCS: 80053; 81001; 81025; 83690; 85025; 87086; 99283

== ENCOUNTER → 2018-10-22 | Outpatient (CLI) | payer OTHER ==
[~2018-10-22] MED LIST changes: +DICLEGIS DR 101 EACH PO
[2018-10-22 17:23] LABS: Source, Urine Clean Catch
[2018-10-22 18:17] LABS: Bilirubin, Urine Neg (Neg); Blood, Urine Neg (Neg); Glucose Qualitative, Urine Neg (Neg); Ketones, Urine Neg (Neg); Leukocyte Esterase, Urine 1+ (Neg); Nitrite, Urine Neg (Neg); Protein, Urine Neg (Neg); Urobilinogen, Urine 2+ (Normal)
[2018-10-22 18:33] LABS: Appearance, Urine Clear (Clear); Color, Urine Yellow (P-Yellow)
[2018-10-22 18:34] LABS: Bacteria Many /hpf; Red Blood Cells, Urine 0-2 /hpf (0-2); Squamous Epithelial Cells Mod /hpf (Few)
== END | disposition home or self-care (01) ==
LOC: LAB 17:22 → LAB SHORT 17:22
PROVIDERS: Obstetrics & Gynecology
DX: O99.89 Other specified diseases and conditions complicating pregnancy, childbirth and the puerperium (principal); R30.0 Dysuria; Z87.440 Personal history of urinary (tract) infections
CPT/HCPCS: 81001; 87086

== ENCOUNTER 2018-10-29 11:56 | Emergency (ER) | payer OTHER ==
[~2018-10-29] VITALS: Ht 167.6 cm; Wt 96.2 kg
[2018-10-29] MEDS ORDERED: PYRI100 PO (12:10)
== END 2018-10-29 12:17 | disposition home or self-care (01) ==
LOC: ER 11:56
DX: O21.0 Mild hyperemesis gravidarum (principal); Z3A.12 12 weeks gestation of pregnancy; Z88.0 Allergy status to penicillin; Z88.8 Allergy status to other drugs, medicaments and biological substances; Z88.2 Allergy status to sulfonamides; Z91.040 Latex allergy status; Z88.1 Allergy status to other antibiotic agents; Z79.899 Other long term (current) drug therapy; J45.909 Unspecified asthma, uncomplicated; F31.9 Bipolar disorder, unspecified
CPT/HCPCS: 99283

== ENCOUNTER → 2018-11-12 | Outpatient (CLI) | payer OTHER ==
[2018-11-16 14:06] LABS: CHLAMYDIA BY NAA Negative (Negative); GONOCOCCUS BY NAA Negative (Negative); TRICH VAG BY NAA Negative (Negative)
== END | disposition home or self-care (01) ==
LOC: LAB 10:59 → LAB SHORT 10:59
PROVIDERS: Obstetrics & Gynecology
DX: Z11.3 Encounter for screening for infections with a predominantly sexual mode of transmission (principal); Z34.80 Encounter for supervision of other normal pregnancy, unspecified trimester
CPT/HCPCS: 87491; 87591; 87661; G0123

== ENCOUNTER 2018-12-06 22:09 | Emergency (ER) | payer OTHER ==
[~2018-12-06] VITALS: Ht 167.6 cm; Wt 92.5 kg
[2018-12-06 23:59] LABS: Source, Urine Clean Catch
[2018-12-07 00:10] LABS: Bilirubin, Urine Neg (Neg); Blood, Urine Neg (Neg); Glucose Qualitative, Urine Neg (Neg); Ketones, Urine 1+ (Neg); Leukocyte Esterase, Urine 2+ (Neg); Nitrite, Urine Neg (Neg); Protein, Urine Neg (Neg); Specific Gravity, Urine 1.015 (1.003-1.022); Urobilinogen, Urine 3+ (Normal); pH, Urine 6.5 (5.0-8.0)
[2018-12-07 00:21] LABS: Appearance, Urine Hazy (Clear); Color, Urine Amber (P-Yellow)
[2018-12-07 00:22] LABS: Bacteria Many /hpf; Red Blood Cells, Urine Not Seen /hpf (0-2); Squamous Epithelial Cells Mod /hpf (Few); White Blood Cells, Urine 50-100 /hpf (0-5)
[2018-12-07 02:32] LABS: BASOPHILS ABSOLUTE AUTO 0.03 K/mm3 (0.00-0.23); BASOPHILS PERCENT AUTO 0 % (0-2); EOSINOPHILS PERCENT AUTO 2 % (0-6); Hematocrit 37.2 % (33.0-51.0); IMMATURE GRAN ABSOLUTE AUTO 0.03 K/mm3 (0.00-0.10); IMMATURE GRAN PERCENT AUTO 0 % (0-1); LYMPHOCYTES ABSOLUTE AUTO 2.22 K/mm3 (0.84-5.20); LYMPHOCYTES PERCENT AUTO 18 % (21-46); MONOCYTES ABSOLUTE AUTO 0.73 K/mm3 (0.16-1.47); MONOCYTES PERCENT AUTO 6 % (4-13); Mean Corpuscular HGB 30.4 pg (26.0-34.0); Mean Corpuscular HGB Conc 32.3 g/dL (31.5-36.5); Mean Corpuscular Volume 94 fL (80-100); NEUTROPHILS ABSOLUTE AUTO 8.96 K/mm3 (1.96-9.15); NEUTROPHILS PERCENT AUTO 73 % (41-73); Platelet Count 225 K/mm3 (150-400); RDW Coefficient Variation 13.4 % (11.7-14.2); RDW Standard Deviation 46.9 fL (35.1-46.3); Red Blood Cell Count 3.95 M/mm3 (3.80-5.20); White Blood Cell Count 12.27 K/mm3 (4.00-11.30)
[2018-12-07 02:46] LABS: Alanine Aminotransfer (ALT/SGP 32 U/L (12-78); Albumin, Blood 3.3 g/dL (3.4-5.0); Albumin/Globulin Ratio 0.7 (0.8-1.8); Alk Phos 86 U/L (50-136); Anion Gap 7 mmol/L (6-16); Aspartate Aminotrans (AST/SGOT 23 U/L (12-37); Bilirubin, Total 0.4 mg/dL (0.1-1.0); Blood Urea Nitrogen 13 mg/dL (8-24); Bun/Creatinine Ratio 19.9 (12.0-20.0); CO2, Blood 24 mmol/L (21-32); Chloride, Blood 107 mmol/L (98-108); Creatinine, Blood 0.65 mg/dL (0.40-1.00); Globulin, Blood 4.9 g/dL (2.2-4.0); Glomerular Filtration Rate >60 (60-); Glucose, Blood 85 mg/dL (70-99); Potassium, Blood 3.9 mmol/L (3.5-5.5); Sodium, Blood 138 mmol/L (136-145); Total Protein, Blood 8.2 g/dL (6.4-8.2)
[2018-12-07] MEDS ORDERED: Macrobid 100 M100 MG PO (03:07)
== END 2018-12-07 03:22 | disposition home or self-care (01) ==
LOC: ER 22:09
PROVIDERS: Emergency Medicine
DX: O23.42 Unspecified infection of urinary tract in pregnancy, second trimester (principal); O99.342 Other mental disorders complicating pregnancy, second trimester; F31.9 Bipolar disorder, unspecified; Z88.0 Allergy status to penicillin; Z88.1 Allergy status to other antibiotic agents; Z91.040 Latex allergy status; Z88.2 Allergy status to sulfonamides; Z88.8 Allergy status to other drugs, medicaments and biological substances; Z91.018 Allergy to other foods; Z79.899 Other long term (current) drug therapy; Z3A.18 18 weeks gestation of pregnancy
CPT/HCPCS: 80053; 81001; 81025; 85025; 87086; 99283

== ENCOUNTER → 2018-12-11 | Outpatient (CLI) | payer OTHER ==
[2018-12-14 20:06] LABS: AFP MOM 1.17 (.); AFP VALUE 42.9 ng/mL (.); DIA MOM 1.05 (.); DIA VALUE 152.18 pg/mL (.); DSR (BY AGE) 1 IN 1044 (.); DSR (SECOND TRIMESTER) 1 IN 10000 (.); GEST. AGE ON COLLECTION DATE 18.6 WEEKS (.); GESTAT. AGE BASED ON EDD (.); HCG MOM 0.57 (.); HCG VALUE 12232 mIU/mL (.); MATERNAL AGE AT EDD 24.7 yr (.); OSBR RISK 1 IN 7137 (.); RACE Caucasian (.); RESULTS Report (.); T18 RISK Not increased (.); TEST RESULTS: *Screen Negative* (.); UE3 MOM 1.08 (.); UE3 VALUE 1.42 ng/mL (.); WEIGHT 214 lbs (.)
== END | disposition home or self-care (01) ==
LOC: LAB 16:45 → LAB SHORT 16:45
PROVIDERS: Obstetrics & Gynecology
DX: Z34.80 Encounter for supervision of other normal pregnancy, unspecified trimester (principal); Z3A.18 18 weeks gestation of pregnancy
CPT/HCPCS: 82105; 82677; 84702; 86336

== ENCOUNTER → 2019-01-08 | Outpatient (CLI) | payer OTHER ==
[2019-01-08 17:08] LABS: Source, Urine Clean Catch
[2019-01-08 18:34] LABS: Bilirubin, Urine Neg (Neg); Blood, Urine Neg (Neg); Glucose Qualitative, Urine Neg (Neg); Ketones, Urine Neg (Neg); Leukocyte Esterase, Urine 3+ (Neg); Nitrite, Urine Neg (Neg); Protein, Urine Neg (Neg); Urobilinogen, Urine 1+ (Normal)
[2019-01-08 18:47] LABS: Appearance, Urine Clear (Clear); Color, Urine Yellow (P-Yellow)
[2019-01-08 18:48] LABS: Red Blood Cells, Urine 0-2 /hpf (0-2)
[2019-01-08 18:49] LABS: Bacteria Mod /hpf; Squamous Epithelial Cells Many /hpf (Few)
== END | disposition home or self-care (01) ==
LOC: LAB 17:00 → LAB SHORT 17:00
PROVIDERS: Obstetrics & Gynecology
DX: R30.9 Painful micturition, unspecified (principal)
CPT/HCPCS: 81001; 87086

== ENCOUNTER 2019-03-18 18:11 | Emergency (ER) | payer OTHER ==
[~2019-03-18] VITALS: Ht 167.6 cm; Wt 106.6 kg
== END 2019-03-18 18:48 | disposition home or self-care (01) ==
LOC: ER 18:11
DX: O9A.213 Injury, poisoning and certain other consequences of external causes complicating pregnancy, third trimester (principal); T23.122A Burn of first degree of single left finger (nail) except thumb, initial encounter; T31.0 Burns involving less than 10% of body surface; X19.XXXA Contact with other heat and hot substances, initial encounter; Z88.0 Allergy status to penicillin; Z91.040 Latex allergy status; Z88.2 Allergy status to sulfonamides; Z91.018 Allergy to other foods; Z79.899 Other long term (current) drug therapy; O99.343 Other mental disorders complicating pregnancy, third trimester; F31.9 Bipolar disorder, unspecified; O99.513 Diseases of the respiratory system complicating pregnancy, third trimester; J45.909 Unspecified asthma, uncomplicated; Z3A.32 32 weeks gestation of pregnancy
CPT/HCPCS: 99283

== ENCOUNTER → 2019-04-03 | Outpatient (CLI) | payer OTHER ==
[~2019-04-03] MED LIST changes: +Ativan1 MG PO
[2019-04-03 12:30] LABS: Source, Urine Clean Catch
[2019-04-03 13:52] LABS: Bilirubin, Urine Neg (Neg); Blood, Urine Neg (Neg); Glucose Qualitative, Urine Neg (Neg); Ketones, Urine Neg (Neg); Leukocyte Esterase, Urine 1+ (Neg); Nitrite, Urine Neg (Neg); Protein, Urine Neg (Neg); Urobilinogen, Urine 1+ (Normal)
[2019-04-03 14:00] LABS: Appearance, Urine Hazy (Clear); Color, Urine Yellow (P-Yellow)
[2019-04-03 14:01] LABS: Bacteria Many /hpf; Squamous Epithelial Cells Mod /hpf (Few)
== END | disposition home or self-care (01) ==
LOC: LAB 11:00 → LAB SHORT 11:00
PROVIDERS: Obstetrics & Gynecology
DX: Z09 Encounter for follow-up examination after completed treatment for conditions other than malignant neoplasm (principal); Z87.440 Personal history of urinary (tract) infections
CPT/HCPCS: 81001; 87086

== ENCOUNTER → 2019-04-14 | Outpatient (CLI) | payer OTHER | END | disposition home or self-care (01) | LOC: LAB SHORT 14:20 → LAB 14:20 | DX: Z34.93 Encounter for supervision of normal pregnancy, unspecified, third trimester (principal) | CPT/HCPCS: 87081; 87653 ==

== ENCOUNTER 2019-05-05 05:40 | Inpatient (IN) | payer OTHER ==
[~2019-05-05] VITALS: Ht 167.6 cm; Wt 111.6 kg
[~2019-05-05 05:40] MED LIST changes: -Ativan1 MG PO
[2019-05-05] MEDS ORDERED: Ativan1 MG PO (06:15)
--- NOTE | 2019-05-05 07:00 | NUR ---
IV START: 3 FAILED ATTEMPTS BY 2 NURSES, 4TH ATTEMPT SUCCESSFUL. LIDOCAINE USED.
[2019-05-05 07:03] LABS: BASOPHILS ABSOLUTE AUTO 0.02 K/mm3 (0.00-0.23); BASOPHILS PERCENT AUTO 0 % (0-2); EOSINOPHILS ABSOLUTE AUTO 0.14 K/mm3 (0.00-0.68); EOSINOPHILS PERCENT AUTO 1 % (0-6); Hematocrit 31.6 % (33.0-51.0); Hemoglobin 9.7 g/dL (11.5-16.0); IMMATURE GRAN ABSOLUTE AUTO 0.05 K/mm3 (0.00-0.10); IMMATURE GRAN PERCENT AUTO 0 % (0-1); LYMPHOCYTES PERCENT AUTO 14 % (21-46); MONOCYTES ABSOLUTE AUTO 0.89 K/mm3 (0.16-1.47); MONOCYTES PERCENT AUTO 6 % (4-13); Mean Corpuscular HGB 26.8 pg (26.0-34.0); Mean Corpuscular HGB Conc 30.7 g/dL (31.5-36.5); Mean Corpuscular Volume 87 fL (80-100); NEUTROPHILS ABSOLUTE AUTO 11.34 K/mm3 (1.96-9.15); NEUTROPHILS PERCENT AUTO 78 % (41-73); Platelet Count 184 K/mm3 (150-400); RDW Coefficient Variation 14.6 % (11.7-14.2); RDW Standard Deviation 46.5 fL (35.1-46.3); Red Blood Cell Count 3.62 M/mm3 (3.80-5.20); White Blood Cell Count 14.54 K/mm3 (4.00-11.30)
[2019-05-05 07:07] LABS: Mean Platelet Volume 14.1 fL (9.1-12.4)
--- NOTE | 2019-05-05 23:44 | NUR ---
05/05/19 9150 Cedric Man BABY BOY BORN AT 2327, GRANDMA PRESENT, CORD SENT WITH RT AND CORD BLOOD SENT WITH OB STAFF
--- NOTE | 2019-05-06 04:00 | NUR ---
UPDATED ON INFANT
[2019-05-06 08:18] LABS: BASOPHILS ABSOLUTE AUTO 0.03 K/mm3 (0.00-0.23); BASOPHILS PERCENT AUTO 0 % (0-2); EOSINOPHILS ABSOLUTE AUTO 0.01 K/mm3 (0.00-0.68); EOSINOPHILS PERCENT AUTO 0 % (0-6); Hematocrit 22.6 % (33.0-51.0); IMMATURE GRAN ABSOLUTE AUTO 0.08 K/mm3 (0.00-0.10); IMMATURE GRAN PERCENT AUTO 0 % (0-1); LYMPHOCYTES ABSOLUTE AUTO 1.33 K/mm3 (0.84-5.20); LYMPHOCYTES PERCENT AUTO 7 % (21-46); MONOCYTES ABSOLUTE AUTO 1.36 K/mm3 (0.16-1.47); MONOCYTES PERCENT AUTO 7 % (4-13); Mean Corpuscular HGB 27.2 pg (26.0-34.0); Mean Corpuscular Volume 88 fL (80-100); NEUTROPHILS ABSOLUTE AUTO 17.44 K/mm3 (1.96-9.15); NEUTROPHILS PERCENT AUTO 86 % (41-73); Platelet Count 153 K/mm3 (150-400); RDW Coefficient Variation 14.7 % (11.7-14.2); Red Blood Cell Count 2.57 M/mm3 (3.80-5.20); White Blood Cell Count 20.25 K/mm3 (4.00-11.30)
[2019-05-06 08:19] LABS: Mean Platelet Volume 13.6 fL (9.1-12.4)
[2019-05-07 08:36] LABS: Hematocrit 23.2 % (33.0-51.0); Hemoglobin 6.9 g/dL (11.5-16.0); Mean Corpuscular HGB 26.7 pg (26.0-34.0); Mean Corpuscular HGB Conc 29.7 g/dL (31.5-36.5); Mean Corpuscular Volume 90 fL (80-100); Platelet Count 168 K/mm3 (150-400); RDW Coefficient Variation 15.1 % (11.7-14.2); RDW Standard Deviation 49.1 fL (35.1-46.3); Red Blood Cell Count 2.58 M/mm3 (3.80-5.20)
[2019-05-07 08:39] LABS: Mean Platelet Volume 13.4 fL (9.1-12.4)
[2019-05-08] MEDS ORDERED: FERSU300 PO (08:26)
[2019-05-08] MEDS ORDERED: IBUP800 PO (08:26)
[2019-05-08] MEDS ORDERED: DOCU100 PO (08:26)
[2019-05-08] MEDS ORDERED: Percocet 5-3251 EACH PO (08:27)
--- NOTE | 2019-05-08 12:42 | NUR ---
ENCOURAGED PT TO GET UP AND MOVING SINCE RN HAS NOT SEEN HER OUT OF BED. PT IS UP IN HALLWAY WALKING WITH NB IN CRIB.
--- NOTE | 2019-05-08 13:46 | NUR ---
DISCHARGE INSTRUCTIONS GIVEN BY PEPITO ROSAS RN. ANSWERED ALL QUESTIONS AND CONCERNS. FOLLOW UP APPONTMENT SCHEDULED. ALL PERSONAL BELONGINGS RETURNED. PT IS READY FOR DISCHARGE, TO BE DRIVEN HOME BY ELPIDIOFRGALE MURPHY.
== END 2019-05-08 14:10 | disposition home or self-care (01) | DRG 787 ==
LOC: BC 05:40
PROVIDERS: Obstetrics & Gynecology; ADMIT Obstetrics & Gynecology
PROC: 10D00Z1 Extraction of Products of Conception, Low, Open Approach (ICD-10-PCS; principal; 2019-05-05)
PROC: 10907ZC Drainage of Amniotic Fluid, Therapeutic from Products of Conception, Via Natural or Artificial Opening (ICD-10-PCS; 2019-05-05)
PROC: 3E033VJ Introduction of Other Hormone into Peripheral Vein, Percutaneous Approach (ICD-10-PCS; 2019-05-05)
DX: O99.214 Obesity complicating childbirth (principal); D62 Acute posthemorrhagic anemia; O62.1 Secondary uterine inertia; O66.5 Attempted application of vacuum extractor and forceps; Z3A.39 39 weeks gestation of pregnancy; Z37.0 Single live birth; O61.0 Failed medical induction of labor; Z88.0 Allergy status to penicillin; Z88.2 Allergy status to sulfonamides; Z88.8 Allergy status to other drugs, medicaments and biological substances; Z88.1 Allergy status to other antibiotic agents; Z91.040 Latex allergy status; Z91.018 Allergy to other foods; O90.81 Anemia of the puerperium; E66.01 Morbid (severe) obesity due to excess calories
CPT/HCPCS: 36415; 51702; 85025; 85027; 86850; 86900; 86901; J1885; J2001; J2210; J2370; J2590; J2765; J3010; J7120

== ENCOUNTER → 2019-05-19 | Outpatient (CLI) | payer OTHER ==
[~2019-05-19] MED LIST changes: +Ativan1 MG PO; +Cleocin HCl300 MG PO
== END | disposition home or self-care (01) ==
LOC: LAB 14:30 → LAB SHORT 14:30
DX: O90.0 Disruption of cesarean delivery wound (principal)
CPT/HCPCS: 87070; 87075; 87205

== ENCOUNTER 2019-05-29 15:02 | Emergency (ER) | payer OTHER ==
[~2019-05-29] VITALS: Ht 167.6 cm; Wt 90.7 kg
[2019-05-29 15:53] LABS: BASOPHILS ABSOLUTE AUTO 0.03 K/mm3 (0.00-0.23); BASOPHILS PERCENT AUTO 0 % (0-2); EOSINOPHILS ABSOLUTE AUTO 0.15 K/mm3 (0.00-0.68); EOSINOPHILS PERCENT AUTO 2 % (0-6); Hematocrit 29.8 % (33.0-51.0); Hemoglobin 8.4 g/dL (11.5-16.0); IMMATURE GRAN ABSOLUTE AUTO 0.02 K/mm3 (0.00-0.10); IMMATURE GRAN PERCENT AUTO 0 % (0-1); LYMPHOCYTES ABSOLUTE AUTO 2.05 K/mm3 (0.84-5.20); LYMPHOCYTES PERCENT AUTO 26 % (21-46); MONOCYTES ABSOLUTE AUTO 0.53 K/mm3 (0.16-1.47); MONOCYTES PERCENT AUTO 7 % (4-13); Mean Corpuscular HGB 24.3 pg (26.0-34.0); Mean Corpuscular HGB Conc 28.2 g/dL (31.5-36.5); Mean Corpuscular Volume 86 fL (80-100); Mean Platelet Volume 11.2 fL (9.1-12.4); NEUTROPHILS ABSOLUTE AUTO 4.99 K/mm3 (1.96-9.15); NEUTROPHILS PERCENT AUTO 64 % (41-73); Platelet Count 443 K/mm3 (150-400); RDW Coefficient Variation 15.1 % (11.7-14.2); RDW Standard Deviation 47.9 fL (35.1-46.3); Red Blood Cell Count 3.45 M/mm3 (3.80-5.20); White Blood Cell Count 7.77 K/mm3 (4.00-11.30)
[2019-05-29 16:33] LABS: Alanine Aminotransfer (ALT/SGP 24 U/L (12-78); Albumin, Blood 3.7 g/dL (3.4-5.0); Albumin/Globulin Ratio 0.9 (0.8-1.8); Alk Phos 112 U/L (50-136); Anion Gap 4 mmol/L (6-16); Aspartate Aminotrans (AST/SGOT 13 U/L (12-37); Bilirubin, Total 0.3 mg/dL (0.1-1.0); Blood Urea Nitrogen 11 mg/dL (8-24); CO2, Blood 26 mmol/L (21-32); Calcium, Blood 9.4 mg/dL (8.5-10.1); Chloride, Blood 108 mmol/L (98-108); Creatinine, Blood 0.73 mg/dL (0.40-1.00); Globulin, Blood 4.2 g/dL (2.2-4.0); Glomerular Filtration Rate >60 (60-); Glucose, Blood 89 mg/dL (70-99); Potassium, Blood 3.7 mmol/L (3.5-5.5); Sodium, Blood 138 mmol/L (136-145); Total Protein, Blood 7.9 g/dL (6.4-8.2)
== END 2019-05-29 18:32 | disposition home or self-care (01) ==
LOC: ER 15:02
PROVIDERS: Physician Assistant
DX: O90.0 Disruption of cesarean delivery wound (principal); J45.909 Unspecified asthma, uncomplicated; F31.9 Bipolar disorder, unspecified; Z88.0 Allergy status to penicillin; Z91.040 Latex allergy status; Z91.018 Allergy to other foods; Z88.2 Allergy status to sulfonamides; Z88.1 Allergy status to other antibiotic agents; Z79.899 Other long term (current) drug therapy; Z79.51 Long term (current) use of inhaled steroids
CPT/HCPCS: 36415; 80053; 85025; 99283

== ENCOUNTER → 2019-08-06 | Outpatient (CLI) | payer OTHER ==
[2019-08-09 02:10] LABS: CHLAMYDIA TRACHOMATIS, NAA Negative (Negative); NEISSERIA GONORRHOEAE, NAA Negative (Negative)
== END | disposition home or self-care (01) ==
LOC: LAB SHORT 16:10 → LAB 16:10
PROVIDERS: Obstetrics & Gynecology
DX: Z30.9 Encounter for contraceptive management, unspecified (principal)
CPT/HCPCS: 87491; 87591

== ENCOUNTER → 2019-08-21 | Outpatient (CLI) | payer OTHER ==
[2019-08-21 17:34] LABS: BASOPHILS ABSOLUTE AUTO 0.03 K/mm3 (0.00-0.23); BASOPHILS PERCENT AUTO 0 % (0-2); EOSINOPHILS PERCENT AUTO 3 % (0-6); Hematocrit 30.8 % (33.0-51.0); Hemoglobin 8.7 g/dL (11.5-16.0); IMMATURE GRAN ABSOLUTE AUTO 0.03 K/mm3 (0.00-0.10); IMMATURE GRAN PERCENT AUTO 0 % (0-1); LYMPHOCYTES ABSOLUTE AUTO 1.78 K/mm3 (0.84-5.20); LYMPHOCYTES PERCENT AUTO 19 % (21-46); MONOCYTES ABSOLUTE AUTO 0.61 K/mm3 (0.16-1.47); MONOCYTES PERCENT AUTO 7 % (4-13); Mean Corpuscular HGB 22.1 pg (26.0-34.0); Mean Corpuscular HGB Conc 28.2 g/dL (31.5-36.5); Mean Corpuscular Volume 78 fL (80-100); Mean Platelet Volume 11.3 fL (9.1-12.4); NEUTROPHILS ABSOLUTE AUTO 6.54 K/mm3 (1.96-9.15); NEUTROPHILS PERCENT AUTO 70 % (41-73); Platelet Count 342 K/mm3 (150-400); RDW Coefficient Variation 16.8 % (11.7-14.2); RDW Standard Deviation 47.8 fL (35.1-46.3); Red Blood Cell Count 3.93 M/mm3 (3.80-5.20); White Blood Cell Count 9.29 K/mm3 (4.00-11.30)
[2019-08-21 17:50] LABS: Anion Gap 10 mmol/L (6-16); Blood Urea Nitrogen 6 mg/dL (8-24); Bun/Creatinine Ratio 6.6 (12.0-20.0); CO2, Blood 25 mmol/L (21-32); Calcium, Blood 8.7 mg/dL (8.5-10.1); Chloride, Blood 106 mmol/L (98-108); Creatinine, Blood 0.91 mg/dL (0.40-1.00); Glomerular Filtration Rate >60 (60-); Glucose, Blood 94 mg/dL (70-99); Potassium, Blood 3.9 mmol/L (3.5-5.5); Sodium, Blood 141 mmol/L (136-145); Thyroid Stimulating Hormone 0.996 uIU/mL (0.360-4.800)
== END | disposition home or self-care (01) ==
LOC: LAB SHORT 17:28 → LAB EV 17:28
PROVIDERS: Physician Assistant Surgical
DX: N30.90 Cystitis, unspecified without hematuria (principal); R10.31 Right lower quadrant pain
CPT/HCPCS: 80048; 84443; 85025; 87086

== ENCOUNTER → 2020-03-21 | Outpatient (CLI) | payer OTHER ==
[~2020-03-21] MED LIST changes: +VIBRID PO
== END | disposition home or self-care (01) ==
LOC: LAB SHORT 17:50 → LAB 17:50
DX: R30.0 Dysuria (principal)
CPT/HCPCS: 87086

== ENCOUNTER → 2020-07-23 | Outpatient (CLI) | payer OTHER | LOC: LAB 13:14 → PLD 13:14 → LAB SHORT 13:14 | PROVIDERS: Obstetrics & Gynecology | DX: N92.0 Excessive and frequent menstruation with regular cycle (principal); Z01.419 Encounter for gynecological examination (general) (routine) without abnormal findings; Z88.0 Allergy status to penicillin; Z88.1 Allergy status to other antibiotic agents; Z88.2 Allergy status to sulfonamides; Z91.040 Latex allergy status; Z91.018 Allergy to other foods | CPT/HCPCS: G0123 ==

== ENCOUNTER → 2020-11-05 | Outpatient (CLI) | payer OTHER ==
[~2020-11-05] MED LIST changes: +BUTALB-ACETAMI1 EAC5 PO; +Cefpodoxime Pr100 MG PO; +VIIBRYD20 MG PO
== END | disposition home or self-care (01) ==
LOC: LAB SHORT 08:50 → LAB 08:50
DX: N39.0 Urinary tract infection, site not specified (principal)
CPT/HCPCS: 87077; 87086; 87186

== ENCOUNTER 2020-11-24 09:00 | Emergency (ER) | payer OTHER ==
[~2020-11-24] VITALS: Ht 167.6 cm; Wt 99.8 kg
[~2020-11-24 09:00] MED LIST changes: -BUTALB-ACETAMI1 EAC5 PO; -Cefpodoxime Pr100 MG PO; -VIIBRYD20 MG PO
[2020-11-24] MEDS ORDERED: VIIBRYD20 MG PO (09:24)
[2020-11-24] MEDS ORDERED: BUTALB-ACETAMI1 EAC5 PO (09:24)
[2020-11-24 09:25] LABS: Source, Urine Clean Catch
[2020-11-24 09:35] LABS: Appearance, Urine Cloudy (Clear); Bilirubin, Urine Neg (Neg); Blood, Urine 2+ (Neg); Color, Urine Yellow (P-Yellow); Glucose Qualitative, Urine Neg (Neg); Ketones, Urine Neg (Neg); Leukocyte Esterase, Urine 3+ (Neg); Nitrite, Urine Neg (Neg); Protein, Urine 2+ (Neg); Urobilinogen, Urine 1+ (Normal); pH, Urine 6.5 (5.0-8.0)
[2020-11-24 09:36] LABS: BASOPHILS ABSOLUTE AUTO 0.02 K/mm3 (0.00-0.23); BASOPHILS PERCENT AUTO 0 % (0-2); EOSINOPHILS PERCENT AUTO 0 % (0-6); Hematocrit 37.5 % (33.0-51.0); Hemoglobin 11.8 g/dL (11.5-16.0); IMMATURE GRAN ABSOLUTE AUTO 0.06 K/mm3 (0.00-0.10); IMMATURE GRAN PERCENT AUTO 0 % (0-1); LYMPHOCYTES ABSOLUTE AUTO 1.16 K/mm3 (0.84-5.20); LYMPHOCYTES PERCENT AUTO 7 % (21-46); MONOCYTES ABSOLUTE AUTO 1.26 K/mm3 (0.16-1.47); MONOCYTES PERCENT AUTO 8 % (4-13); Mean Corpuscular HGB 27.3 pg (26.0-34.0); Mean Corpuscular HGB Conc 31.5 g/dL (31.5-36.5); Mean Corpuscular Volume 87 fL (80-100); Mean Platelet Volume 12.2 fL (9.1-12.4); NEUTROPHILS ABSOLUTE AUTO 13.11 K/mm3 (1.96-9.15); NEUTROPHILS PERCENT AUTO 84 % (41-73); Platelet Count 186 K/mm3 (150-400); RDW Coefficient Variation 15.1 % (11.7-14.2); RDW Standard Deviation 48.3 fL (35.1-46.3); Red Blood Cell Count 4.33 M/mm3 (3.80-5.20); White Blood Cell Count 15.61 K/mm3 (4.00-11.30)
[2020-11-24 09:46] LABS: White Blood Cells, Urine 50-100 /hpf (0-5)
[2020-11-24 09:47] LABS: Bacteria Many /hpf; Red Blood Cells, Urine 0-2 /hpf (0-2); Squamous Epithelial Cells Mod /hpf (Few); Transitional Epithelial Cells Few /hpf (0-Rare)
[2020-11-24 09:56] LABS: Alanine Aminotransfer (ALT/SGP 82 U/L (12-78); Albumin, Blood 3.6 g/dL (3.4-5.0); Albumin/Globulin Ratio 0.8 (0.8-1.8); Alk Phos 110 U/L (50-136); Anion Gap 7 mmol/L (6-16); Aspartate Aminotrans (AST/SGOT 21 U/L (12-37); Bilirubin, Total 0.8 mg/dL (0.1-1.0); Blood Urea Nitrogen 6 mg/dL (8-24); Bun/Creatinine Ratio 7.7 (12.0-20.0); CO2, Blood 23 mmol/L (21-32); Calcium, Blood 8.1 mg/dL (8.5-10.1); Chloride, Blood 107 mmol/L (98-108); Creatinine, Blood 0.78 mg/dL (0.40-1.00); Globulin, Blood 4.5 g/dL (2.2-4.0); Glomerular Filtration Rate >60 (60-); Glucose, Blood 100 mg/dL (70-99); Potassium, Blood 3.4 mmol/L (3.5-5.5); Sodium, Blood 137 mmol/L (136-145); Total Protein, Blood 8.1 g/dL (6.4-8.2)
[2020-11-24] MEDS ORDERED: ONDA4ODT MM (10:06)
[2020-11-24] MEDS ORDERED: Cefpodoxime Pr100 MG PO (10:06)
== END 2020-11-24 11:28 | disposition home or self-care (01) ==
LOC: ER 09:00
PROVIDERS: Physician Assistant
DX: N12 Tubulo-interstitial nephritis, not specified as acute or chronic (principal); J45.909 Unspecified asthma, uncomplicated; Z88.0 Allergy status to penicillin; Z88.2 Allergy status to sulfonamides; Z88.1 Allergy status to other antibiotic agents; Z91.040 Latex allergy status; Z91.018 Allergy to other foods; Z88.8 Allergy status to other drugs, medicaments and biological substances
CPT/HCPCS: 36415; 80053; 81001; 81025; 85025; 87077; 87086; 87186; 91303; 96361; 96365; 96375; 99284-25; J0696; J1885; J7030

== ENCOUNTER → 2021-03-24 | Outpatient (CLI) | payer OTHER ==
[~2021-03-24] MED LIST changes: +BUTALB-ACETAMI1 EAC5 PO; +Cefpodoxime Pr100 MG PO; +VIIBRYD20 MG PO
== END | disposition home or self-care (01) ==
LOC: LAB SHORT 08:53
DX: J02.9 Acute pharyngitis, unspecified (principal)
CPT/HCPCS: 87081

== ENCOUNTER → 2021-06-30 | Outpatient (CLI) | payer OTHER ==
[2021-07-02 02:07] LABS: CHLAMYDIA TRACHOMATIS, NAA Negative (Negative)
== END | disposition home or self-care (01) ==
LOC: LAB SHORT 12:30 → LAB 12:30
PROVIDERS: Family Medicine
DX: O28.8 Other abnormal findings on antenatal screening of mother (principal); O26.91 Pregnancy related conditions, unspecified, first trimester
CPT/HCPCS: 87077; 87086; 87186; 87491; 87591

== ENCOUNTER 2021-07-04 19:53 | Emergency (ER) | payer OTHER ==
[~2021-07-04] VITALS: Ht 167.6 cm; Wt 94.3 kg
[2021-07-04 20:56] LABS: BASOPHILS ABSOLUTE AUTO 0.02 K/mm3 (0.00-0.23); BASOPHILS PERCENT AUTO 0 % (0-2); EOSINOPHILS ABSOLUTE AUTO 0.19 K/mm3 (0.00-0.68); EOSINOPHILS PERCENT AUTO 2 % (0-6); Hematocrit 38.6 % (33.0-51.0); Hemoglobin 12.1 g/dL (11.5-16.0); IMMATURE GRAN ABSOLUTE AUTO 0.02 K/mm3 (0.00-0.10); IMMATURE GRAN PERCENT AUTO 0 % (0-1); LYMPHOCYTES ABSOLUTE AUTO 2.13 K/mm3 (0.84-5.20); LYMPHOCYTES PERCENT AUTO 20 % (21-46); MONOCYTES ABSOLUTE AUTO 0.79 K/mm3 (0.16-1.47); MONOCYTES PERCENT AUTO 7 % (4-13); Mean Corpuscular HGB 28.7 pg (26.0-34.0); Mean Corpuscular HGB Conc 31.3 g/dL (31.5-36.5); Mean Corpuscular Volume 92 fL (80-100); Mean Platelet Volume 12.2 fL (9.1-12.4); NEUTROPHILS PERCENT AUTO 70 % (41-73); Platelet Count 249 K/mm3 (150-400); RDW Coefficient Variation 14.4 % (11.7-14.2); RDW Standard Deviation 48.4 fL (35.1-46.3); Red Blood Cell Count 4.21 M/mm3 (3.80-5.20); White Blood Cell Count 10.65 K/mm3 (4.00-11.30)
[2021-07-04 21:15] LABS: Alanine Aminotransfer (ALT/SGP 26 U/L (12-78); Albumin, Blood 3.9 g/dL (3.4-5.0); Alk Phos 81 U/L (50-136); Anion Gap 5 mmol/L (6-16); Aspartate Aminotrans (AST/SGOT 15 U/L (12-37); Beta HCG, Quantitative, Serum 815 mIU/mL (0-3); Bilirubin, Total 0.1 mg/dL (0.1-1.0); Blood Urea Nitrogen 9 mg/dL (8-24); Bun/Creatinine Ratio 13.5 (12.0-20.0); CO2, Blood 25 mmol/L (21-32); Calcium, Blood 8.6 mg/dL (8.5-10.1); Chloride, Blood 110 mmol/L (98-108); Creatinine, Blood 0.67 mg/dL (0.40-1.00); Glomerular Filtration Rate >60 (60-); Glucose, Blood 95 mg/dL (70-99); Potassium, Blood 3.8 mmol/L (3.5-5.5); Sodium, Blood 140 mmol/L (136-145); Total Protein, Blood 7.9 g/dL (6.4-8.2)
[2021-07-04 21:35] LABS: Source, Urine Clean Catch
[2021-07-04 21:45] LABS: Bilirubin, Urine Neg (Neg); Blood, Urine Neg (Neg); Glucose Qualitative, Urine Neg (Neg); Ketones, Urine Neg (Neg); Leukocyte Esterase, Urine Neg (Neg); Nitrite, Urine Neg (Neg); Protein, Urine Neg (Neg); Urobilinogen, Urine NORM (Normal); pH, Urine 6.5 (5.0-8.0)
[2021-07-04 22:03] LABS: Appearance, Urine Clear (Clear); Color, Urine Pale Yellow (P-Yellow)
== END 2021-07-05 00:49 | disposition home or self-care (01) ==
LOC: ER 19:53
PROVIDERS: Physician Assistant
DX: O99.891 Other specified diseases and conditions complicating pregnancy (principal); R10.9 Unspecified abdominal pain; O99.511 Diseases of the respiratory system complicating pregnancy, first trimester; J45.909 Unspecified asthma, uncomplicated; Z88.8 Allergy status to other drugs, medicaments and biological substances; Z88.0 Allergy status to penicillin; Z88.2 Allergy status to sulfonamides; Z91.040 Latex allergy status; Z79.899 Other long term (current) drug therapy; Z3A.01 Less than 8 weeks gestation of pregnancy
CPT/HCPCS: 36415; 76801; 76817; 80053; 81003; 84702; 85025; 86900; 86901

== ENCOUNTER → 2021-07-28 | Outpatient (CLI) | payer OTHER | END | disposition home or self-care (01) | LOC: LAB SHORT 15:48 → LAB 15:48 | DX: Z34.01 Encounter for supervision of normal first pregnancy, first trimester (principal); Z3A.08 8 weeks gestation of pregnancy | CPT/HCPCS: 87077; 87086; 87186 ==

== ENCOUNTER 2021-09-08 14:05 | Emergency (ER) | payer OTHER ==
[~2021-09-08] VITALS: Ht 167.6 cm; Wt 96.2 kg
[~2021-09-08 14:05] MED LIST changes: +PROM12.5S PR
[2021-09-08 14:59] LABS: BASOPHILS ABSOLUTE AUTO 0.02 K/mm3 (0.00-0.23); BASOPHILS PERCENT AUTO 0 % (0-2); EOSINOPHILS ABSOLUTE AUTO 0.23 K/mm3 (0.00-0.68); EOSINOPHILS PERCENT AUTO 2 % (0-6); Hematocrit 35.5 % (33.0-51.0); Hemoglobin 11.8 g/dL (11.5-16.0); IMMATURE GRAN ABSOLUTE AUTO 0.05 K/mm3 (0.00-0.10); IMMATURE GRAN PERCENT AUTO 0 % (0-1); LYMPHOCYTES ABSOLUTE AUTO 1.98 K/mm3 (0.84-5.20); LYMPHOCYTES PERCENT AUTO 17 % (21-46); MONOCYTES ABSOLUTE AUTO 0.52 K/mm3 (0.16-1.47); MONOCYTES PERCENT AUTO 5 % (4-13); Mean Corpuscular HGB 29.8 pg (26.0-34.0); Mean Corpuscular HGB Conc 33.2 g/dL (31.5-36.5); Mean Corpuscular Volume 90 fL (80-100); Mean Platelet Volume 11.7 fL (9.1-12.4); NEUTROPHILS ABSOLUTE AUTO 8.73 K/mm3 (1.96-9.15); NEUTROPHILS PERCENT AUTO 76 % (41-73); Platelet Count 251 K/mm3 (150-400); RDW Coefficient Variation 13.8 % (11.7-14.2); RDW Standard Deviation 45.1 fL (35.1-46.3); Red Blood Cell Count 3.96 M/mm3 (3.80-5.20); White Blood Cell Count 11.53 K/mm3 (4.00-11.30)
[2021-09-08 15:24] LABS: Albumin, Blood 3.2 g/dL (3.4-5.0); Albumin/Globulin Ratio 0.8 (0.8-1.8); Bilirubin, Total 0.1 mg/dL (0.1-1.0); Bun/Creatinine Ratio 14.2 (12.0-20.0); Calcium, Blood 8.6 mg/dL (8.5-10.1); Creatinine, Blood 0.57 mg/dL (0.40-1.00); Globulin, Blood 4.2 g/dL (2.2-4.0); Potassium, Blood 3.5 mmol/L (3.5-5.5); Total Protein, Blood 7.4 g/dL (6.4-8.2)
[2021-09-08 17:09] LABS: Source, Urine Clean Catch
[2021-09-08 17:18] LABS: Appearance, Urine Hazy (Clear); Bilirubin, Urine Neg (Neg); Blood, Urine 1+ (Neg); Color, Urine Yellow (P-Yellow); Glucose Qualitative, Urine Neg (Neg); Ketones, Urine Neg (Neg); Leukocyte Esterase, Urine 1+ (Neg); Nitrite, Urine Neg (Neg); Protein, Urine Neg (Neg); Urobilinogen, Urine NORM (Normal)
[2021-09-08 17:55] LABS: Bacteria Many /hpf; Squamous Epithelial Cells Mod /hpf (Few)
== END 2021-09-08 18:13 | disposition home or self-care (01) ==
LOC: ER 14:05
PROVIDERS: Physician Assistant
DX: O26.892 Other specified pregnancy related conditions, second trimester (principal); R10.30 Lower abdominal pain, unspecified; Z3A.14 14 weeks gestation of pregnancy; O99.512 Diseases of the respiratory system complicating pregnancy, second trimester; J45.909 Unspecified asthma, uncomplicated; Z88.0 Allergy status to penicillin; Z88.2 Allergy status to sulfonamides; Z88.1 Allergy status to other antibiotic agents; Z91.040 Latex allergy status; Z91.018 Allergy to other foods; Z87.891 Personal history of nicotine dependence
CPT/HCPCS: 36415; 76815; 80053; 81001; 85025; 87077; 87086; 87186; 99284-25

== ENCOUNTER → 2021-10-17 | Outpatient (CLI) | payer OTHER ==
[~2021-10-17] MED LIST changes: +PRED20 PO; +PRENATAL TABLE1 EAC2; +PROZAC20 M9 PO; +TRAZ100 PO
[2021-10-17 16:19] LABS: Source, Urine Clean Catch
[2021-10-17 19:59] LABS: Appearance, Urine Hazy (Clear); Bilirubin, Urine Neg (Neg); Blood, Urine Neg (Neg); Glucose Qualitative, Urine Neg (Neg); Ketones, Urine Neg (Neg); Leukocyte Esterase, Urine 3+ (Neg); Nitrite, Urine Pos (Neg); Protein, Urine Neg (Neg); Urobilinogen, Urine NORM (Normal); pH, Urine 6.5 (5.0-8.0)
[2021-10-17 20:01] LABS: Color, Urine Pale Yellow (P-Yellow)
[2021-10-17 20:02] LABS: Bacteria Many /hpf; Red Blood Cells, Urine 0-2 /hpf (0-2); Squamous Epithelial Cells Mod /hpf (Few); Transitional Epithelial Cells Rare /hpf (0-Rare)
== END | disposition home or self-care (01) ==
LOC: LAB SHORT 16:10 → LAB 16:10
PROVIDERS: Obstetrics & Gynecology
DX: R82.90 Unspecified abnormal findings in urine (principal)
CPT/HCPCS: 81001; 87077; 87086; 87186

== ENCOUNTER 2021-11-01 14:38 | Observation (INO) | payer OTHER ==
[~2021-11-01] VITALS: Ht 167.6 cm; Wt 98.9 kg
[~2021-11-01 14:38] MED LIST changes: -PRENATAL TABLE1 EAC2
[2021-11-01 15:39] LABS: BASOPHILS ABSOLUTE AUTO 0.02 K/mm3 (0.00-0.23); BASOPHILS PERCENT AUTO 0 % (0-2); EOSINOPHILS ABSOLUTE AUTO 0.01 K/mm3 (0.00-0.68); EOSINOPHILS PERCENT AUTO 0 % (0-6); Hematocrit 32.2 % (33.0-51.0); Hemoglobin 10.7 g/dL (11.5-16.0); IMMATURE GRAN ABSOLUTE AUTO 0.11 K/mm3 (0.00-0.10); IMMATURE GRAN PERCENT AUTO 1 % (0-1); LYMPHOCYTES ABSOLUTE AUTO 1.38 K/mm3 (0.84-5.20); LYMPHOCYTES PERCENT AUTO 7 % (21-46); MONOCYTES ABSOLUTE AUTO 0.89 K/mm3 (0.16-1.47); MONOCYTES PERCENT AUTO 4 % (4-13); Mean Corpuscular HGB 30.7 pg (26.0-34.0); Mean Corpuscular HGB Conc 33.2 g/dL (31.5-36.5); Mean Corpuscular Volume 92 fL (80-100); Mean Platelet Volume 12.2 fL (9.1-12.4); NEUTROPHILS ABSOLUTE AUTO 17.85 K/mm3 (1.96-9.15); NEUTROPHILS PERCENT AUTO 88 % (41-73); Platelet Count 249 K/mm3 (150-400); RDW Coefficient Variation 14.3 % (11.7-14.2); RDW Standard Deviation 48.1 fL (35.1-46.3); Red Blood Cell Count 3.49 M/mm3 (3.80-5.20); White Blood Cell Count 20.26 K/mm3 (4.00-11.30)
[2021-11-01 15:55] LABS: Albumin, Blood 2.7 g/dL (3.4-5.0); Albumin/Globulin Ratio 0.6 (0.8-1.8); Bilirubin, Total 0.2 mg/dL (0.1-1.0); Bun/Creatinine Ratio 14.3 (12.0-20.0); Calcium, Blood 9.2 mg/dL (8.5-10.1); Creatinine, Blood 0.49 mg/dL (0.40-1.00); Globulin, Blood 4.5 g/dL (2.2-4.0); Potassium, Blood 3.7 mmol/L (3.5-5.5); Total Protein, Blood 7.2 g/dL (6.4-8.2)
[2021-11-02 00:48] LABS: Hematocrit 30.9 % (33.0-51.0); Hemoglobin 10.1 g/dL (11.5-16.0); Mean Corpuscular HGB 30.3 pg (26.0-34.0); Mean Corpuscular HGB Conc 32.7 g/dL (31.5-36.5); Mean Corpuscular Volume 93 fL (80-100); Mean Platelet Volume 11.7 fL (9.1-12.4); Platelet Count 218 K/mm3 (150-400); RDW Coefficient Variation 14.3 % (11.7-14.2); RDW Standard Deviation 48.9 fL (35.1-46.3); Red Blood Cell Count 3.33 M/mm3 (3.80-5.20); White Blood Cell Count 15.56 K/mm3 (4.00-11.30)
[2021-11-02 00:53] LABS: Base Excess Venous -0.4 mmol/L; Bicarbonate Venous 23.9 mmol/L (24.0-30.0); PCO2 Venous 41.6 mmHg (38-42); pH Blood Venous 7.38 (7.34-7.37)
[2021-11-02 01:18] LABS: Bun/Creatinine Ratio 13.2 (12.0-20.0); Calcium, Blood 8.1 mg/dL (8.5-10.1); Creatinine, Blood 0.61 mg/dL (0.40-1.00); Magnesium, Blood 1.8 mg/dL (1.6-2.4); Potassium, Blood 3.2 mmol/L (3.5-5.5); Thyroid Stimulating Hormone 1.63 uIU/mL (0.360-4.800)
--- NOTE | 2021-11-02 04:42 | NUR ---
SHIFT SUMMARY PT CAME FROM THE ER AROUND MIDNIGHT. PT COMPLAINS OF SOB, BUT DOES NOT APPEAR TO BE IN ANY DISTRESS. PT BIOX IS 98-100% ON ROOM AIR. PT ASKS FOR HER SLEEP MEDICATION. MEDICATION GIVEN AND HAVE HAD NO COMPLAINTS FROM PT. CALL LIGHT IS WITHIN HER REACH.
[2021-11-02 14:03] LABS: Influenza A, PCR NEGATIVE (NEGATIVE); Influenza B, PCR NEGATIVE (NEGATIVE); Resp Syncytial Virus, PCR NEGATIVE (NEGATIVE); SARS-Cov-2 (COVID-19) PCR, MMC NEGATIVE (NEGATIVE)
--- NOTE | 2021-11-02 16:14 | NUR ---
FHT 140'S, CAN HEAR INCREASES AND DECREASES. PT REPORTS HAS FELT BABY MOVE LOTS TODAY.
--- NOTE | 2021-11-02 18:26 | NUR ---
PATIENT IS ALERT AND ORIENTED AND COOPERATIVE WITH CARE. C/O LIGHTHEADEDNESS, SOB AND CP/TIGHTNESS 5/10 WITH EXERTION. NO OTHER COMPLAINTS. WAITING FOR ECHO TO BE PERFORMED. WILL CONTINUE TO MONITOR
--- NOTE | 2021-11-03 04:27 | NUR ---
SHIFT SUMMARY WHILE AWAKE, PT LAST NIGHT CONTINUED TO COMPLAIN OF SOB AND DIZZINESS WHILE LYING DOWN. THE PT DOES NOT EXHIBIT ANY SIGNS OF DISTRESS AND HER BIOX DURING THESE EPISODES CONTINUES TO BE IN THE HIGH 90'S. PT DID EAT A SNACK EARLIER IN THE EVENING AND SAID SHE FELT A LITTLE BIT BETTER AFTERWARD. PT HAD EPISODE OF LOW BP AND PER DR OHARA, PT WAS GIVEN A BOLUS OF 500 ML NS, INCREASING HER BP. PT GIVEN HER SLEEP MEDICATION AND PT HAS HAD NO COMPLAINTS THIS MORNING.
[2021-11-03 05:34] LABS: BASOPHILS ABSOLUTE AUTO 0.03 K/mm3 (0.00-0.23); BASOPHILS PERCENT AUTO 0 % (0-2); EOSINOPHILS ABSOLUTE AUTO 0.42 K/mm3 (0.00-0.68); EOSINOPHILS PERCENT AUTO 3 % (0-6); Hematocrit 33.3 % (33.0-51.0); Hemoglobin 10.5 g/dL (11.5-16.0); IMMATURE GRAN ABSOLUTE AUTO 0.06 K/mm3 (0.00-0.10); IMMATURE GRAN PERCENT AUTO 1 % (0-1); LYMPHOCYTES ABSOLUTE AUTO 2.49 K/mm3 (0.84-5.20); LYMPHOCYTES PERCENT AUTO 19 % (21-46); MONOCYTES ABSOLUTE AUTO 0.77 K/mm3 (0.16-1.47); MONOCYTES PERCENT AUTO 6 % (4-13); Mean Corpuscular HGB 29.9 pg (26.0-34.0); Mean Corpuscular HGB Conc 31.5 g/dL (31.5-36.5); Mean Corpuscular Volume 95 fL (80-100); NEUTROPHILS PERCENT AUTO 71 % (41-73); Platelet Count 229 K/mm3 (150-400); RDW Coefficient Variation 14.4 % (11.7-14.2); RDW Standard Deviation 49.3 fL (35.1-46.3); Red Blood Cell Count 3.51 M/mm3 (3.80-5.20); White Blood Cell Count 13.07 K/mm3 (4.00-11.30)
[2021-11-03 06:26] LABS: Bun/Creatinine Ratio 17.9 (12.0-20.0); Calcium, Blood 8.3 mg/dL (8.5-10.1); Creatinine, Blood 0.62 mg/dL (0.40-1.00); Magnesium, Blood 1.9 mg/dL (1.6-2.4); Percent Saturation 11.2 % (15.0-50.0); Potassium, Blood 4.1 mmol/L (3.5-5.5)
--- NOTE | 2021-11-03 09:30 | NUR ---
DISCUSSED LOW BP WITH DR MAGUIRE, FLUIDS STARTED
--- NOTE | 2021-11-03 10:32 | NUR ---
1025 DOPPLER HEART TONES FHR 135 BY DOPPLER. NO REPORT OF CRAMPING OR BLEEDING
--- NOTE | 2021-11-03 18:17 | NUR ---
DISCHARGE REVIEWED WITH PT . PT VERBALIZED UNDERSTNDING MEDS AND INST. S/O ON WAY TO TRANSPORT HOME. IV PULLED INTACT. TELE REMOVED. PT WHEELED TO DOOR AT 1730
== END 2021-11-03 17:41 | disposition home or self-care (01) ==
LOC: ER 14:38 → MEDS 14:39
PROVIDERS: Internal Medicine; Physician Assistant; ADMIT Internal Medicine
DX: O26.892 Other specified pregnancy related conditions, second trimester (principal); R06.00 Dyspnea, unspecified; O99.012 Anemia complicating pregnancy, second trimester; D64.9 Anemia, unspecified; O99.891 Other specified diseases and conditions complicating pregnancy; R00.0 Tachycardia, unspecified; E87.6 Hypokalemia; Z3A.22 22 weeks gestation of pregnancy; J45.909 Unspecified asthma, uncomplicated; F31.9 Bipolar disorder, unspecified; Z87.891 Personal history of nicotine dependence; Z88.0 Allergy status to penicillin; Z88.1 Allergy status to other antibiotic agents; Z88.2 Allergy status to sulfonamides; Z79.899 Other long term (current) drug therapy; Z20.822 Contact with and (suspected) exposure to COVID-19
CPT/HCPCS: 0241U; 36415; 71046; 80048; 80053; 82607; 82728; 82746; 82803; 83540; 83550; 83735; 84443; 84484; 85025; 85027; 93005; 93010; 93306; 93970; 94760; 96372; 99285-25; A9270; G0378; J1650; J7030

== ENCOUNTER → 2021-11-10 | Outpatient (CLI) | payer OTHER ==
[~2021-11-10] MED LIST changes: +PRENATAL TABLE1 EAC2
[2021-11-10 17:54] LABS: Source, Urine Urostomy Bag
[2021-11-10 18:44] LABS: Appearance, Urine Hazy (Clear); Bilirubin, Urine Neg (Neg); Blood, Urine 1+ (Neg); Color, Urine Yellow (P-Yellow); Glucose Qualitative, Urine Neg (Neg); Ketones, Urine Neg (Neg); Leukocyte Esterase, Urine 2+ (Neg); Nitrite, Urine Neg (Neg); Protein, Urine 1+ (Neg); Specific Gravity, Urine 1.015 (1.003-1.022); Urobilinogen, Urine 1+ (Normal); pH, Urine 6.5 (5.0-8.0)
[2021-11-10 19:01] LABS: Squamous Epithelial Cells Mod /hpf (Few)
[2021-11-10 19:02] LABS: Bacteria Many /hpf; Hyaline Casts 0-2 /lpf (0-2)
== END | disposition home or self-care (01) ==
LOC: LAB 16:00 → LAB SHORT 16:00
PROVIDERS: Obstetrics & Gynecology
DX: R82.90 Unspecified abnormal findings in urine (principal)
CPT/HCPCS: 81001; 87077; 87086; 87186

== ENCOUNTER 2021-11-14 19:51 | Inpatient (IN) | payer OTHER ==
[~2021-11-14] VITALS: Ht 167.6 cm; Wt 103.6 kg
[~2021-11-14 19:51] MED LIST changes: -PRENATAL TABLE1 EAC2
[2021-11-14] MEDS ORDERED: PRENATAL TABLE1 EAC2 (20:25)
[2021-11-14 20:49] LABS: BASOPHILS ABSOLUTE AUTO 0.04 K/mm3 (0.00-0.23); BASOPHILS PERCENT AUTO 0 % (0-2); EOSINOPHILS ABSOLUTE AUTO 0.21 K/mm3 (0.00-0.68); EOSINOPHILS PERCENT AUTO 1 % (0-6); Hematocrit 30.5 % (33.0-51.0); Hemoglobin 10.1 g/dL (11.5-16.0); IMMATURE GRAN ABSOLUTE AUTO 0.09 K/mm3 (0.00-0.10); IMMATURE GRAN PERCENT AUTO 1 % (0-1); LYMPHOCYTES ABSOLUTE AUTO 1.67 K/mm3 (0.84-5.20); LYMPHOCYTES PERCENT AUTO 10 % (21-46); MONOCYTES ABSOLUTE AUTO 0.67 K/mm3 (0.16-1.47); MONOCYTES PERCENT AUTO 4 % (4-13); Mean Corpuscular HGB 30.8 pg (26.0-34.0); Mean Corpuscular HGB Conc 33.1 g/dL (31.5-36.5); Mean Corpuscular Volume 93 fL (80-100); Mean Platelet Volume 11.9 fL (9.1-12.4); NEUTROPHILS ABSOLUTE AUTO 13.96 K/mm3 (1.96-9.15); NEUTROPHILS PERCENT AUTO 84 % (41-73); Platelet Count 252 K/mm3 (150-400); RDW Standard Deviation 47.6 fL (35.1-46.3); Red Blood Cell Count 3.28 M/mm3 (3.80-5.20); White Blood Cell Count 16.64 K/mm3 (4.00-11.30)
[2021-11-14 21:09] LABS: Albumin, Blood 2.4 g/dL (3.4-5.0); Albumin/Globulin Ratio 0.5 (0.8-1.8); Bilirubin, Total 0.1 mg/dL (0.1-1.0); Bun/Creatinine Ratio 16.7 (12.0-20.0); Calcium, Blood 8.5 mg/dL (8.5-10.1); Creatinine, Blood 0.54 mg/dL (0.40-1.00); Globulin, Blood 4.4 g/dL (2.2-4.0); Potassium, Blood 3.7 mmol/L (3.5-5.5); Total Protein, Blood 6.8 g/dL (6.4-8.2)
[2021-11-16 06:22] LABS: BASOPHILS ABSOLUTE AUTO 0.02 K/mm3 (0.00-0.23); BASOPHILS PERCENT AUTO 0 % (0-2); EOSINOPHILS ABSOLUTE AUTO 0.34 K/mm3 (0.00-0.68); EOSINOPHILS PERCENT AUTO 3 % (0-6); Hematocrit 31.2 % (33.0-51.0); IMMATURE GRAN ABSOLUTE AUTO 0.08 K/mm3 (0.00-0.10); IMMATURE GRAN PERCENT AUTO 1 % (0-1); LYMPHOCYTES ABSOLUTE AUTO 2.24 K/mm3 (0.84-5.20); LYMPHOCYTES PERCENT AUTO 20 % (21-46); MONOCYTES ABSOLUTE AUTO 0.89 K/mm3 (0.16-1.47); MONOCYTES PERCENT AUTO 8 % (4-13); Mean Corpuscular HGB 30.4 pg (26.0-34.0); Mean Corpuscular HGB Conc 32.1 g/dL (31.5-36.5); Mean Corpuscular Volume 95 fL (80-100); Mean Platelet Volume 12.2 fL (9.1-12.4); NEUTROPHILS ABSOLUTE AUTO 7.85 K/mm3 (1.96-9.15); NEUTROPHILS PERCENT AUTO 69 % (41-73); Platelet Count 220 K/mm3 (150-400); RDW Coefficient Variation 14.1 % (11.7-14.2); RDW Standard Deviation 48.8 fL (35.1-46.3); Red Blood Cell Count 3.29 M/mm3 (3.80-5.20); White Blood Cell Count 11.42 K/mm3 (4.00-11.30)
--- NOTE | 2021-11-16 09:05 | NUR ---
PT DC'D HOME. AMBULATED OUT.
== END 2021-11-16 09:05 | disposition home or self-care (01) | DRG 832 ==
LOC: OBS 19:51 → BC 19:52 → OBS 19:59 → BC 20:01
PROVIDERS: Obstetrics & Gynecology; ADMIT Obstetrics & Gynecology
DX: O23.02 Infections of kidney in pregnancy, second trimester (principal); Z16.24 Resistance to multiple antibiotics; Z3A.24 24 weeks gestation of pregnancy; B96.20 Unspecified Escherichia coli [E. coli] as the cause of diseases classified elsewhere; Z86.73 Personal history of transient ischemic attack (TIA), and cerebral infarction without residual deficits; O99.352 Diseases of the nervous system complicating pregnancy, second trimester; G43.909 Migraine, unspecified, not intractable, without status migrainosus; O99.342 Other mental disorders complicating pregnancy, second trimester; F41.3 Other mixed anxiety disorders
CPT/HCPCS: 36415; 80053; 85025; A9270; J1580; J2405; J7120

== ENCOUNTER → 2021-11-28 | Outpatient (CLI) | payer OTHER ==
[~2021-11-28] MED LIST changes: +PRENATAL TABLE1 EAC2
== END | disposition home or self-care (01) ==
LOC: LAB 15:59 → LAB SHORT 15:59
DX: R30.9 Painful micturition, unspecified (principal)
CPT/HCPCS: 87086

== ENCOUNTER 2022-02-04 14:56 | Emergency (ER) | payer OTHER ==
[~2022-02-04] VITALS: Ht 167.6 cm; Wt 113.4 kg
== END 2022-02-04 15:17 | disposition home or self-care (01) ==
LOC: ER 14:56
DX: O99.891 Other specified diseases and conditions complicating pregnancy (principal); H92.02 Otalgia, left ear; O99.519 Diseases of the respiratory system complicating pregnancy, unspecified trimester; J45.909 Unspecified asthma, uncomplicated; Z88.0 Allergy status to penicillin; Z88.2 Allergy status to sulfonamides; Z88.1 Allergy status to other antibiotic agents; Z91.040 Latex allergy status; Z91.018 Allergy to other foods; Z79.899 Other long term (current) drug therapy; Z87.440 Personal history of urinary (tract) infections; Z87.891 Personal history of nicotine dependence; Z3A.00 Weeks of gestation of pregnancy not specified
CPT/HCPCS: 99282

== ENCOUNTER → 2022-02-06 | Outpatient (CLI) | payer OTHER | LOC: LAB 15:07 → LAB SHORT 15:07 | DX: O09.893 Supervision of other high risk pregnancies, third trimester (principal); Z3A.00 Weeks of gestation of pregnancy not specified | CPT/HCPCS: 87081; 87150 ==

== ENCOUNTER 2022-02-12 12:15 | Observation (INO) | payer OTHER ==
[~2022-02-12] VITALS: Ht 167.6 cm; Wt 120.0 kg
--- NOTE | 2022-02-12 17:11 | NUR ---
NO THOUGHTS OF SUICIDE SINCE 2011
--- NOTE | 2022-02-13 10:45 | NUR ---
DISCHARGE INSTRUCTIONS REVIEWED AND SIGNED. QUESTIONS ANSWERED. PT HAS HER DR APPT ALL SET UP FOR THE WEEK. PT TO BE DISCHARGED TO HOME.
== END 2022-02-13 10:55 | disposition home or self-care (01) ==
LOC: OBS 12:15 → BC 12:15 → OBS 16:55 → BC 16:57
PROVIDERS: ADMIT Obstetrics & Gynecology
DX: O28.9 Unspecified abnormal findings on antenatal screening of mother (principal); Z3A.36 36 weeks gestation of pregnancy; O99.213 Obesity complicating pregnancy, third trimester; E66.9 Obesity, unspecified; O99.343 Other mental disorders complicating pregnancy, third trimester; F41.9 Anxiety disorder, unspecified; F31.9 Bipolar disorder, unspecified; Z88.0 Allergy status to penicillin; Z88.2 Allergy status to sulfonamides; Z88.1 Allergy status to other antibiotic agents; Z91.040 Latex allergy status; Z91.018 Allergy to other foods
CPT/HCPCS: 76819; 81003

== ENCOUNTER 2022-02-20 13:57 | Inpatient (IN) | payer OTHER ==
[~2022-02-20] VITALS: Ht 167.6 cm; Wt 120.0 kg
[2022-02-20 16:54] LABS: BASOPHILS ABSOLUTE AUTO 0.05 K/mm3 (0.00-0.23); BASOPHILS PERCENT AUTO 0 % (0-2); EOSINOPHILS ABSOLUTE AUTO 0.44 K/mm3 (0.00-0.68); EOSINOPHILS PERCENT AUTO 2 % (0-6); Hematocrit 34.1 % (33.0-51.0); Hemoglobin 10.2 g/dL (11.5-16.0); IMMATURE GRAN ABSOLUTE AUTO 0.16 K/mm3 (0.00-0.10); IMMATURE GRAN PERCENT AUTO 1 % (0-1); LYMPHOCYTES ABSOLUTE AUTO 1.98 K/mm3 (0.84-5.20); LYMPHOCYTES PERCENT AUTO 10 % (21-46); MONOCYTES ABSOLUTE AUTO 1.04 K/mm3 (0.16-1.47); MONOCYTES PERCENT AUTO 5 % (4-13); Mean Corpuscular HGB 26.4 pg (26.0-34.0); Mean Corpuscular HGB Conc 29.9 g/dL (31.5-36.5); Mean Corpuscular Volume 88 fL (80-100); NEUTROPHILS PERCENT AUTO 82 % (41-73); Platelet Count 239 K/mm3 (150-400); RDW Coefficient Variation 14.8 % (11.7-14.2); RDW Standard Deviation 46.9 fL (35.1-46.3); Red Blood Cell Count 3.87 M/mm3 (3.80-5.20); White Blood Cell Count 20.07 K/mm3 (4.00-11.30)
--- NOTE | 2022-02-20 17:24 | NUR ---
02/20/22 1724 Nandini Nolasco 1710: 14 F MENDOSA CATH PLACED IN BLADDER. CLEAR YELLOW URINE NOTED. BULB FILLED WITH 10 CC.
[2022-02-20 18:01] LABS: PCO2 Cord - Arterial 69.1 mmHg (40-50); pH Cord - Arterial 7.17 (7.28-7.35)
[2022-02-20 18:06] LABS: PO2 Cord - Arterial > 14 mmHg (16-20)
[2022-02-20 18:09] LABS: PCO2 Cord - Venous 53.8 mmHg (40-50); PO2 Cord - Venous 20.1 mmHg (28-32); pH Umbilical Cord - Venous 7.27 (7.26-7.35)
[2022-02-21 06:14] LABS: BASOPHILS ABSOLUTE AUTO 0.02 K/mm3 (0.00-0.23); BASOPHILS PERCENT AUTO 0 % (0-2); EOSINOPHILS ABSOLUTE AUTO 0.23 K/mm3 (0.00-0.68); EOSINOPHILS PERCENT AUTO 2 % (0-6); Hematocrit 27.7 % (33.0-51.0); Hemoglobin 8.6 g/dL (11.5-16.0); IMMATURE GRAN ABSOLUTE AUTO 0.11 K/mm3 (0.00-0.10); IMMATURE GRAN PERCENT AUTO 1 % (0-1); LYMPHOCYTES ABSOLUTE AUTO 1.71 K/mm3 (0.84-5.20); LYMPHOCYTES PERCENT AUTO 12 % (21-46); MONOCYTES ABSOLUTE AUTO 0.88 K/mm3 (0.16-1.47); MONOCYTES PERCENT AUTO 6 % (4-13); Mean Corpuscular HGB 27.2 pg (26.0-34.0); Mean Corpuscular Volume 88 fL (80-100); Mean Platelet Volume 11.8 fL (9.1-12.4); NEUTROPHILS ABSOLUTE AUTO 11.53 K/mm3 (1.96-9.15); NEUTROPHILS PERCENT AUTO 80 % (41-73); Platelet Count 168 K/mm3 (150-400); RDW Coefficient Variation 14.9 % (11.7-14.2); RDW Standard Deviation 47.7 fL (35.1-46.3); Red Blood Cell Count 3.16 M/mm3 (3.80-5.20); White Blood Cell Count 14.48 K/mm3 (4.00-11.30)
[2022-02-21] MEDS ORDERED: ROXICODONE5 MG PO (12:23)
[2022-02-21] MEDS ORDERED: IBUP800 PO (12:24)
--- NOTE | 2022-02-22 13:05 | NUR ---
celia given written and verbal dc instructions. questions answered. will follow up with dr arnold within 2 weeks. 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 walking and moving well. luciano graff fob here at [facility] requesting paternity test. this rn told him that we do not do paternity tests here and all the testing would have to be done outpatient and they would have to complete that outside the hospital. luciano walked out with arden at discharge.
== END 2022-02-22 12:47 | disposition home or self-care (01) | DRG 787 ==
LOC: OBS 13:57 → BC 13:59 → OBS 16:10 → BC 16:12
PROVIDERS: ADMIT Obstetrics & Gynecology
PROC: 30233N1 Transfusion of Nonautologous Red Blood Cells into Peripheral Vein, Percutaneous Approach (ICD-10-PCS; 2022-02-20)
PROC: 10D00Z1 Extraction of Products of Conception, Low, Open Approach (ICD-10-PCS; principal; 2022-02-20 17:00)
DX: O34.211 Maternal care for low transverse scar from previous cesarean delivery (principal); D62 Acute posthemorrhagic anemia; O41.03X0 Oligohydramnios, third trimester, not applicable or unspecified; Z37.0 Single live birth; F41.8 Other specified anxiety disorders; O99.344 Other mental disorders complicating childbirth; O99.52 Diseases of the respiratory system complicating childbirth; J45.909 Unspecified asthma, uncomplicated; O99.02 Anemia complicating childbirth; O99.62 Diseases of the digestive system complicating childbirth; O99.214 Obesity complicating childbirth; O28.8 Other abnormal findings on antenatal screening of mother; K21.9 Gastro-esophageal reflux disease without esophagitis; Z3A.38 38 weeks gestation of pregnancy; Z79.51 Long term (current) use of inhaled steroids; Z88.8 Allergy status to other drugs, medicaments and biological substances; Z88.1 Allergy status to other antibiotic agents; Z88.0 Allergy status to penicillin; Z88.2 Allergy status to sulfonamides; Z91.040 Latex allergy status; Z79.899 Other long term (current) drug therapy; Z87.440 Personal history of urinary (tract) infections
CPT/HCPCS: 36415; 76819; 82803; 85025; 86850; 86900; 86901; 86923; A9270; J1170; J1580; J1885; J2270; J2370; J2405; J2590; J2765; J3010; J7120

== ENCOUNTER 2022-06-07 06:28 | Day surgery (SDC) | payer OTHER ==
[~2022-06-07] VITALS: Ht 167.6 cm; Wt 108.7 kg
[~2022-06-07 06:28] MED LIST changes: +CELE200 PO; +ROXICODONE5 MG PO; +TOPI25 PO; +VIIBRYD10 MG PO; +Ventolin5 MG/1 ML INH; +ZOLP5; +[UNRECOGNIZED DRUG - OTHER]
[2022-06-07] MEDS ORDERED: BUTALB-ACETAMI1 EAC6 PO (06:59)
[2022-06-07] MEDS ORDERED: LORA10ER PO (07:00)
--- NOTE | 2022-06-07 07:42 | NUR ---
Patient up to Ambulate independently. Gait steady. History, Chart, Medications and Allergies reviewed before start of procedure.Pre-Op teaching done. Pt verbalizes understanding. Patient States Post-Procedure ride home has been arranged.
--- NOTE | 2022-06-07 08:44 | NUR ---
06/07/22 [address] PLACE & SECURE PRIOR TO SURGERY START TO PROTECT PATIENT'S FACE,HEAD, AND INTUBATION TUBE.
--- NOTE | 2022-06-07 11:30 | NUR ---
PATIENT CAME TO THE FLOOR TODAY AT 1040. POD 0 LAP HYSTER PATIENT IS A&OX4. SOFT BP BUT OTHERWISE VS ARE WNL AND IS ON RA. ABD IS SOFT TO TOUCH BUT TENDER. SHE HAS 4 LAP SITES ON HER ABD WITH DERMABOND THAT ARE C/D/I. SHE IS TOLERATING SMALL AMOUNTS OF PO INTAKE AT THIS TIME. AMILCAR PAD HAS NO BLOOD AT THIS TIME. PATIENT IS RESTING IN BED WITH CALL LIGHT IN REACH. ZIA MURPHY WAS NOTIFIED THAT SHE IS IN HER ROOM AND HE STATED HE WOULD BE IN SHORTLY TO SEE HER.
[2022-06-07] MEDS ORDERED: ACET500 PO (14:17)
[2022-06-07] MEDS ORDERED: OXYC5 PO (14:18)
--- NOTE | 2022-06-07 14:59 | NUR ---
DISCHARGE NOTE: PATIENT WAS EDUCATED ON DISCHARGE INSTRUCTIONS. SHE VERBALIZED UNDERSTANDING OF INSTRUCTIONS WITH NO FURTHER QUESTIONS AT THIS TIME. PAIN IS MANAGED WITH ORAL PAIN MEDICATIONS. BOTH IV'S WERE TAKEN OUT AND WNL. HER ABD HAS 4 LAP SITES WITH WOUND GLUE THAT ARE C/D/I. SHE IS TOLERATING PO INTAKE AND IS VOIDING. AMILCAR PAD HAS SCANT AMOUNT OF BLOOD ON THEM. SHE IS AMBULATORY WITHIN HER ROOM. ABD BINDER WAS PLACED ON HER ABD. PATIENT IS DRESSED AND HAS PERSONAL ITEMS IN THE ROOM GATHERED. SHE IS BEING WHEELCHAIRED OUT TO HER [employer] CAR TO BE TAKEN HOME. HARD PERSCIRPTIONS WERE ALREADY FILLED BY [employer] YESTERDAY.
== END 2022-06-07 14:44 | disposition home or self-care (01) ==
LOC: ORSCMMR 06:28 → ORD 07:30 → ORSCMMR 07:30 → SURS 10:33 → ORSCMMR 14:44
PROVIDERS: Obstetrics & Gynecology
PROC: 0UT7FZZ Resection of Bilateral Fallopian Tubes, Via Natural or Artificial Opening With Percutaneous Endoscopic Assistance (ICD-10-PCS; principal; 2022-06-07 07:30)
PROC: 8E0W4CZ Robotic Assisted Procedure of Trunk Region, Percutaneous Endoscopic Approach (ICD-10-PCS; principal; 2022-06-07 07:30)
PROC: 0UT9FZZ Resection of Uterus, Via Natural or Artificial Opening With Percutaneous Endoscopic Assistance (ICD-10-PCS; principal; 2022-06-07 07:30)
DX: N80.03 Adenomyosis of the uterus (principal); N94.6 Dysmenorrhea, unspecified; N92.0 Excessive and frequent menstruation with regular cycle; K66.0 Peritoneal adhesions (postprocedural) (postinfection); J45.909 Unspecified asthma, uncomplicated; F31.9 Bipolar disorder, unspecified; F90.9 Attention-deficit hyperactivity disorder, unspecified type; Z79.899 Other long term (current) drug therapy; E66.9 Obesity, unspecified; Z68.39 Body mass index [BMI] 39.0-39.9, adult
CPT/HCPCS: 58571; S2900; 88307; A9270; J1100; J1170; J1580; J2250; J2405; J2704; J3010; J7120

== ENCOUNTER → 2022-12-15 | Outpatient (CLI) | payer OTHER ==
[~2022-12-15] MED LIST changes: +BUTALB-ACETAMI1 EAC6 PO; +LORA10ER PO
== END | disposition home or self-care (01) ==
LOC: LAB 09:31 → LAB SHORT 09:31
DX: R30.0 Dysuria (principal)
CPT/HCPCS: 87086

== ENCOUNTER 2022-12-26 11:23 | Emergency (ER) | payer OTHER ==
[~2022-12-26] VITALS: Ht 167.6 cm; Wt 97.5 kg
[2022-12-26 12:05] LABS: Source, Urine Clean Catch
[2022-12-26 12:15] LABS: Bilirubin, Urine Neg (Neg); Blood, Urine Neg (Neg); Glucose Qualitative, Urine Neg (Neg); Ketones, Urine Neg (Neg); Leukocyte Esterase, Urine Neg (Neg); Nitrite, Urine Neg (Neg); Protein, Urine Neg (Neg); Specific Gravity, Urine 1.005 (1.003-1.022); Urobilinogen, Urine NORM (Normal)
[2022-12-26 12:19] LABS: Appearance, Urine Clear (Clear); Color, Urine Yellow (P-Yellow)
[2022-12-26 14:11] LABS: BASOPHILS ABSOLUTE AUTO 0.03 K/mm3 (0.00-0.23); BASOPHILS PERCENT AUTO 0 % (0-2); EOSINOPHILS ABSOLUTE AUTO 0.41 K/mm3 (0.00-0.68); EOSINOPHILS PERCENT AUTO 6 % (0-6); Hemoglobin 11.7 g/dL (11.5-16.0); IMMATURE GRAN ABSOLUTE AUTO 0.01 K/mm3 (0.00-0.10); IMMATURE GRAN PERCENT AUTO 0 % (0-1); LYMPHOCYTES ABSOLUTE AUTO 1.64 K/mm3 (0.84-5.20); LYMPHOCYTES PERCENT AUTO 23 % (21-46); MONOCYTES ABSOLUTE AUTO 0.56 K/mm3 (0.16-1.47); MONOCYTES PERCENT AUTO 8 % (4-13); Mean Corpuscular HGB Conc 30.8 g/dL (31.5-36.5); Mean Corpuscular Volume 88 fL (80-100); Mean Platelet Volume 12.1 fL (9.1-12.4); NEUTROPHILS ABSOLUTE AUTO 4.51 K/mm3 (1.96-9.15); NEUTROPHILS PERCENT AUTO 63 % (41-73); Platelet Count 265 K/mm3 (150-400); RDW Coefficient Variation 15.6 % (11.7-14.2); RDW Standard Deviation 50.1 fL (35.1-46.3); Red Blood Cell Count 4.34 M/mm3 (3.80-5.20); White Blood Cell Count 7.16 K/mm3 (4.00-11.30)
[2022-12-26 14:33] LABS: Albumin, Blood 3.6 g/dL (3.4-5.0); Albumin/Globulin Ratio 0.9 (0.8-1.8); Bilirubin, Total 0.3 mg/dL (0.1-1.0); Bun/Creatinine Ratio 9.7 (12.0-20.0); Calcium, Blood 8.6 mg/dL (8.5-10.1); Creatinine, Blood 0.72 mg/dL (0.40-1.00); Globulin, Blood 3.9 g/dL (2.2-4.0); Potassium, Blood 3.9 mmol/L (3.5-5.5); Total Protein, Blood 7.5 g/dL (6.4-8.2)
[2022-12-26 15:07] VITALS: BP 110/59
== END 2022-12-26 15:10 | disposition home or self-care (01) ==
LOC: ER 11:23
PROVIDERS: Emergency Medicine; Physician Assistant
DX: R10.9 Unspecified abdominal pain (principal); R10.2 Pelvic and perineal pain; Z88.0 Allergy status to penicillin; Z88.1 Allergy status to other antibiotic agents; Z88.2 Allergy status to sulfonamides; Z91.040 Latex allergy status; Z91.018 Allergy to other foods; Z87.440 Personal history of urinary (tract) infections
CPT/HCPCS: 76770; 80053; 81003; 81025; 83690; 85025; 99284-25

== ENCOUNTER → 2023-01-15 | Outpatient (CLI) | payer OTHER | END | disposition home or self-care (01) | LOC: LAB SHORT 13:38 → LAB 13:38 | DX: N39.0 Urinary tract infection, site not specified (principal) | CPT/HCPCS: 87077; 87086; 87186 ==

== ENCOUNTER 2023-03-28 22:46 | Emergency (ER) | payer OTHER ==
[~2023-03-28] VITALS: Ht 167.6 cm; Wt 95.2 kg
[2023-03-28 23:10] LABS: Source, Urine Clean Catch
[2023-03-28 23:12] LABS: Bilirubin, Urine Neg (Neg); Blood, Urine 1+ (Neg); Glucose Qualitative, Urine Neg (Neg); Ketones, Urine Neg (Neg); Leukocyte Esterase, Urine 2+ (Neg); Nitrite, Urine Pos (Neg); Protein, Urine Neg (Neg); Specific Gravity, Urine 1.015 (1.003-1.022); Urobilinogen, Urine NORM (Normal); pH, Urine 6.5 (5.0-8.0)
[2023-03-28 23:30] LABS: BASOPHILS ABSOLUTE AUTO 0.03 K/mm3 (0.00-0.23); BASOPHILS PERCENT AUTO 0 % (0-2); EOSINOPHILS ABSOLUTE AUTO 0.07 K/mm3 (0.00-0.68); EOSINOPHILS PERCENT AUTO 1 % (0-6); Hematocrit 37.7 % (33.0-51.0); Hemoglobin 11.9 g/dL (11.5-16.0); IMMATURE GRAN ABSOLUTE AUTO 0.02 K/mm3 (0.00-0.10); IMMATURE GRAN PERCENT AUTO 0 % (0-1); LYMPHOCYTES ABSOLUTE AUTO 1.44 K/mm3 (0.84-5.20); LYMPHOCYTES PERCENT AUTO 15 % (21-46); MONOCYTES ABSOLUTE AUTO 0.88 K/mm3 (0.16-1.47); MONOCYTES PERCENT AUTO 9 % (4-13); Mean Corpuscular HGB 28.2 pg (26.0-34.0); Mean Corpuscular HGB Conc 31.6 g/dL (31.5-36.5); Mean Corpuscular Volume 89 fL (80-100); NEUTROPHILS ABSOLUTE AUTO 7.27 K/mm3 (1.96-9.15); NEUTROPHILS PERCENT AUTO 75 % (41-73); Platelet Count 235 K/mm3 (150-400); RDW Coefficient Variation 14.1 % (11.7-14.2); RDW Standard Deviation 45.6 fL (35.1-46.3); Red Blood Cell Count 4.22 M/mm3 (3.80-5.20); White Blood Cell Count 9.71 K/mm3 (4.00-11.30)
[2023-03-28 23:37] LABS: Appearance, Urine Cloudy (Clear); Color, Urine Yellow (P-Yellow)
[2023-03-28 23:39] LABS: Bacteria Many /hpf; Red Blood Cells, Urine 0-2 /hpf (0-2); Squamous Epithelial Cells Mod /hpf (Few)
[2023-03-28 23:50] LABS: Albumin, Blood 3.9 g/dL (3.4-5.0); Bilirubin, Total 0.3 mg/dL (0.1-1.0); Calcium, Blood 8.8 mg/dL (8.5-10.1); Creatinine, Blood 0.7 mg/dL (0.40-1.00); Potassium, Blood 3.7 mmol/L (3.5-5.5); Total Protein, Blood 7.9 g/dL (6.4-8.2)
[2023-03-29] MEDS ORDERED: Macrobid 100 M100 MG PO (00:21)
[2023-03-29] MEDS ORDERED: RIZATRIPTAN10 M3 (00:46)
[2023-03-29 01:00] VITALS: BP 113/79
== END 2023-03-29 01:10 | disposition home or self-care (01) ==
LOC: ER 22:46
PROVIDERS: Emergency Medicine
DX: N39.0 Urinary tract infection, site not specified (principal); J45.909 Unspecified asthma, uncomplicated; Z88.0 Allergy status to penicillin; Z88.2 Allergy status to sulfonamides; Z88.1 Allergy status to other antibiotic agents; Z91.040 Latex allergy status; Z79.899 Other long term (current) drug therapy
CPT/HCPCS: 76857; 80053; 81001; 85025; 87077; 87086; 87186; 99284-25; A9270

== ENCOUNTER → 2023-10-10 | Outpatient (CLI) | payer OTHER ==
[~2023-10-10] MED LIST changes: +PROC25S PR; +RIZATRIPTAN10 M3
[2023-10-10 20:14] LABS: Bacterial Vaginosis PCR Negative (NEGATIVE); Candida Group, PCR NOT DETECTED (NOT DETECT)
[2023-10-10 21:25] LABS: Candida glabrata-krusei, PCR DETECTED (NOT DETECT)
== END ==
LOC: LAB 15:14 → LAB SHORT 15:14
PROVIDERS: Chiropractor
DX: N89.8 Other specified noninflammatory disorders of vagina (principal)
CPT/HCPCS: 87481; 87661; 87801

== ENCOUNTER 2023-10-24 17:25 | Emergency (ER) | payer OTHER ==
[~2023-10-24] VITALS: Ht 167.6 cm; Wt 94.8 kg
[2023-10-24 17:47] VITALS: BP 127/103
[2023-10-24 18:26] LABS: Source, Urine Clean Catch
[2023-10-24 18:31] LABS: Appearance, Urine Hazy (Clear); Bilirubin, Urine Neg (Neg); Blood, Urine Neg (Neg); Color, Urine Yellow (P-Yellow); Glucose Qualitative, Urine Neg (Neg); Ketones, Urine Neg (Neg); Leukocyte Esterase, Urine Neg (Neg); Nitrite, Urine Neg (Neg); Protein, Urine Neg (Neg); Urobilinogen, Urine NORM (Normal)
[2023-10-24 18:33] LABS: BASOPHILS ABSOLUTE AUTO 0.02 K/mm3 (0.00-0.23); BASOPHILS PERCENT AUTO 0 % (0-2); EOSINOPHILS ABSOLUTE AUTO 0.46 K/mm3 (0.00-0.68); EOSINOPHILS PERCENT AUTO 5 % (0-6); Hematocrit 37.8 % (33.0-51.0); Hemoglobin 12.4 g/dL (11.5-16.0); IMMATURE GRAN ABSOLUTE AUTO 0.02 K/mm3 (0.00-0.10); IMMATURE GRAN PERCENT AUTO 0 % (0-1); LYMPHOCYTES ABSOLUTE AUTO 2.34 K/mm3 (0.84-5.20); LYMPHOCYTES PERCENT AUTO 27 % (21-46); MONOCYTES ABSOLUTE AUTO 0.56 K/mm3 (0.16-1.47); MONOCYTES PERCENT AUTO 6 % (4-13); Mean Corpuscular HGB 30.5 pg (26.0-34.0); Mean Corpuscular HGB Conc 32.8 g/dL (31.5-36.5); Mean Corpuscular Volume 93 fL (80-100); Mean Platelet Volume 11.9 fL (9.1-12.4); NEUTROPHILS ABSOLUTE AUTO 5.29 K/mm3 (1.96-9.15); NEUTROPHILS PERCENT AUTO 61 % (41-73); Platelet Count 224 K/mm3 (150-400); RDW Coefficient Variation 13.1 % (11.7-14.2); RDW Standard Deviation 44.6 fL (35.1-46.3); Red Blood Cell Count 4.06 M/mm3 (3.80-5.20); White Blood Cell Count 8.69 K/mm3 (4.00-11.30)
[2023-10-24 18:39] LABS: Bacteria Many /hpf; Red Blood Cells, Urine Not Seen /hpf (0-2); Squamous Epithelial Cells Many /hpf (Few); White Blood Cells, Urine 0-2 /hpf (0-5)
[2023-10-24 18:51] LABS: Albumin, Blood 4.1 g/dL (3.4-5.0); Albumin/Globulin Ratio 1.1 (0.8-1.8); Bilirubin, Total 0.2 mg/dL (0.1-1.0); Calcium, Blood 8.6 mg/dL (8.5-10.1); Creatinine, Blood 0.88 mg/dL (0.40-1.00); Globulin, Blood 3.8 g/dL (2.2-4.0); Potassium, Blood 3.7 mmol/L (3.5-5.5); Total Protein, Blood 7.9 g/dL (6.4-8.2)
[2023-10-24] MEDS ORDERED: ONDA4 PO (19:03)
[2023-10-24] MEDS ORDERED: Ondansetron HCl 2 MG / ML 2ML Vial IV ONE (19:05)
== END 2023-10-24 19:29 | disposition home or self-care (01) ==
LOC: ER 17:25
PROVIDERS: Physician Assistant
DX: K52.9 Noninfective gastroenteritis and colitis, unspecified (principal); J45.909 Unspecified asthma, uncomplicated; Z88.0 Allergy status to penicillin; Z88.2 Allergy status to sulfonamides; Z88.1 Allergy status to other antibiotic agents; Z91.040 Latex allergy status; Z91.018 Allergy to other foods; Z79.899 Other long term (current) drug therapy
CPT/HCPCS: 80053; 81001; 85025; 87086; 96374; 99283-25; J2405

== ENCOUNTER 2024-01-31 07:23 | Day surgery (SDC) | payer OTHER ==
[~2024-01-31 07:23] MED LIST changes: +BENADRYL25 MG PO; +BUTALB-ACETAMI1 EAC7 PO; +EPIPEN0.3 MG/0.3 IM; +GUAI600T33 PO
== END 2024-01-31 23:26 | disposition home or self-care (01) ==
LOC: MHTC 07:23
DX: R55 Syncope and collapse (principal); R00.2 Palpitations; E55.9 Vitamin D deficiency, unspecified; Z88.0 Allergy status to penicillin; Z88.2 Allergy status to sulfonamides; Z88.8 Allergy status to other drugs, medicaments and biological substances; Z91.010 Allergy to peanuts; Z91.040 Latex allergy status
CPT/HCPCS: 93660

== ENCOUNTER 2024-02-19 08:10 | Emergency (ER) | payer OTHER ==
[~2024-02-19] VITALS: Ht 167.6 cm; Wt 93.9 kg
[2024-02-19 09:23] LABS: BASOPHILS ABSOLUTE AUTO 0.02 K/mm3 (0.00-0.23); BASOPHILS PERCENT AUTO 0 % (0-2); EOSINOPHILS ABSOLUTE AUTO 0.23 K/mm3 (0.00-0.68); EOSINOPHILS PERCENT AUTO 3 % (0-6); Hematocrit 39.7 % (33.0-51.0); Hemoglobin 13.2 g/dL (11.5-16.0); IMMATURE GRAN ABSOLUTE AUTO 0.01 K/mm3 (0.00-0.10); IMMATURE GRAN PERCENT AUTO 0 % (0-1); LYMPHOCYTES ABSOLUTE AUTO 1.45 K/mm3 (0.84-5.20); LYMPHOCYTES PERCENT AUTO 19 % (21-46); MONOCYTES ABSOLUTE AUTO 0.51 K/mm3 (0.16-1.47); MONOCYTES PERCENT AUTO 7 % (4-13); Mean Corpuscular HGB 30.8 pg (26.0-34.0); Mean Corpuscular HGB Conc 33.2 g/dL (31.5-36.5); Mean Corpuscular Volume 93 fL (80-100); Mean Platelet Volume 12.2 fL (9.1-12.4); NEUTROPHILS ABSOLUTE AUTO 5.59 K/mm3 (1.96-9.15); NEUTROPHILS PERCENT AUTO 72 % (41-73); Platelet Count 206 K/mm3 (150-400); RDW Coefficient Variation 13.2 % (11.7-14.2); RDW Standard Deviation 45.2 fL (35.1-46.3); Red Blood Cell Count 4.29 M/mm3 (3.80-5.20); White Blood Cell Count 7.81 K/mm3 (4.00-11.30)
[2024-02-19 09:45] LABS: Albumin, Blood 3.8 g/dL (3.4-5.0); Bilirubin, Total 0.3 mg/dL (0.1-1.0); Bun/Creatinine Ratio 11.9 (12.0-20.0); Calcium, Blood 8.5 mg/dL (8.5-10.1); Creatinine, Blood 0.67 mg/dL (0.40-1.00); Globulin, Blood 3.7 g/dL (2.2-4.0); Total Protein, Blood 7.5 g/dL (6.4-8.2)
[2024-02-19 11:41] LABS: Source, Urine Clean Catch
[2024-02-19 11:45] LABS: Bilirubin, Urine Neg (Neg); Blood, Urine Neg (Neg); Glucose Qualitative, Urine Neg (Neg); Ketones, Urine Neg (Neg); Leukocyte Esterase, Urine 1+ (Neg); Nitrite, Urine Neg (Neg); Protein, Urine Neg (Neg); Specific Gravity, Urine 1.015 (1.003-1.022); Urobilinogen, Urine NORM (Normal)
[2024-02-19 12:00] LABS: Appearance, Urine Hazy (Clear); Color, Urine Yellow (P-Yellow)
[2024-02-19 12:01] LABS: Bacteria Many /hpf; Red Blood Cells, Urine 0-2 /hpf (0-2); Squamous Epithelial Cells Few /hpf (Few); White Blood Cells, Urine 25-50 /hpf (0-5)
[2024-02-19 12:16] VITALS: BP 100/76
[2024-02-19] MEDS ORDERED: NITR100CA PO (12:19)
== END 2024-02-19 12:23 | disposition home or self-care (01) ==
LOC: ER 08:10
PROVIDERS: Student in an Organized Health Care Education/Training Program
DX: N39.0 Urinary tract infection, site not specified (principal); F43.10 Post-traumatic stress disorder, unspecified; J45.909 Unspecified asthma, uncomplicated; G47.00 Insomnia, unspecified; Z79.899 Other long term (current) drug therapy; Z88.0 Allergy status to penicillin; Z91.040 Latex allergy status; Z88.5 Allergy status to narcotic agent; Z88.2 Allergy status to sulfonamides; Z88.1 Allergy status to other antibiotic agents; Z88.8 Allergy status to other drugs, medicaments and biological substances; Z91.018 Allergy to other foods
CPT/HCPCS: 74177; 76857; 80053; 81001; 83605; 83690; 85025; 99284-25; Q9967

== ENCOUNTER → 2024-02-27 | Outpatient (CLI) | payer OTHER | LOC: LAB 15:04 → LAB SHORT 15:04 | DX: N30.00 Acute cystitis without hematuria (principal); R10.31 Right lower quadrant pain | CPT/HCPCS: 87077; 87086; 87186 ==

== ENCOUNTER 2024-03-20 11:08 | Emergency (ER) | payer OTHER ==
[~2024-03-20] VITALS: Ht 167.6 cm; Wt 91.6 kg
[2024-03-20 11:17] VITALS: BP 135/101
[2024-03-20] MEDS ORDERED: CefTRIAXone Sodium 1,000 MG in NS 100 ML IV ONE (11:20)
== END 2024-03-20 13:02 | disposition home or self-care (01) ==
LOC: ER 11:08
DX: N39.0 Urinary tract infection, site not specified (principal); F43.10 Post-traumatic stress disorder, unspecified; J45.909 Unspecified asthma, uncomplicated; G47.00 Insomnia, unspecified; Z79.899 Other long term (current) drug therapy; Z88.0 Allergy status to penicillin; Z91.040 Latex allergy status; Z88.2 Allergy status to sulfonamides; Z88.1 Allergy status to other antibiotic agents; Z88.8 Allergy status to other drugs, medicaments and biological substances
CPT/HCPCS: 96365; 99281-25; J0696

== ENCOUNTER → 2024-03-20 | Outpatient (CLI) | payer OTHER | LOC: LAB SHORT 09:52 → LAB 09:52 | DX: N12 Tubulo-interstitial nephritis, not specified as acute or chronic (principal) | CPT/HCPCS: 87077; 87086; 87186 ==

== ENCOUNTER 2024-03-30 11:56 | Emergency (ER) | payer OTHER ==
[~2024-03-30] VITALS: Ht 167.6 cm; Wt 89.8 kg
[2024-03-30 12:43] LABS: BASOPHILS ABSOLUTE AUTO 0.01 K/mm3 (0.00-0.23); BASOPHILS PERCENT AUTO 0 % (0-2); EOSINOPHILS ABSOLUTE AUTO 0.25 K/mm3 (0.00-0.68); EOSINOPHILS PERCENT AUTO 4 % (0-6); Hematocrit 38.9 % (33.0-51.0); IMMATURE GRAN ABSOLUTE AUTO 0.02 K/mm3 (0.00-0.10); IMMATURE GRAN PERCENT AUTO 0 % (0-1); LYMPHOCYTES ABSOLUTE AUTO 1.75 K/mm3 (0.84-5.20); LYMPHOCYTES PERCENT AUTO 28 % (21-46); MONOCYTES ABSOLUTE AUTO 0.35 K/mm3 (0.16-1.47); MONOCYTES PERCENT AUTO 6 % (4-13); Mean Corpuscular HGB Conc 33.4 g/dL (31.5-36.5); Mean Corpuscular Volume 93 fL (80-100); Mean Platelet Volume 11.5 fL (9.1-12.4); NEUTROPHILS ABSOLUTE AUTO 3.98 K/mm3 (1.96-9.15); NEUTROPHILS PERCENT AUTO 63 % (41-73); Platelet Count 237 K/mm3 (150-400); RDW Coefficient Variation 13.1 % (11.7-14.2); RDW Standard Deviation 44.7 fL (35.1-46.3); White Blood Cell Count 6.36 K/mm3 (4.00-11.30)
[2024-03-30 13:02] LABS: Bilirubin, Total 0.2 mg/dL (0.1-1.0); Bun/Creatinine Ratio 10.7 (12.0-20.0); Creatinine, Blood 0.65 mg/dL (0.40-1.00); Globulin, Blood 3.9 g/dL (2.2-4.0); Magnesium, Blood 2.3 mg/dL (1.6-2.4); Potassium, Blood 3.6 mmol/L (3.5-5.5); Total Protein, Blood 7.9 g/dL (6.4-8.2)
[2024-03-30] MEDS ORDERED: CEFP200 PO (13:20)
[2024-03-30] MEDS ORDERED: BUDE.25 INH (13:20)
[2024-03-30] MEDS ORDERED: AMPDEX10CR PO (13:21)
[2024-03-30] MEDS ORDERED: AMPDEX5 PO (13:23)
[2024-03-30] MEDS ORDERED: Ketorolac Tromethamine 15mg Vial IV ONE (14:15)
[2024-03-30] MEDS ORDERED: NS 1,000 ML IV SCH (14:15)
[2024-03-30 15:30] VITALS: BP 120/85
[2024-03-30] MEDS ORDERED: IBUP600 PO (15:33)
== END 2024-03-30 15:40 | disposition home or self-care (01) ==
LOC: ER 11:56
PROVIDERS: Physician Assistant
DX: M94.0 Chondrocostal junction syndrome [Tietze] (principal); G90.A Postural orthostatic tachycardia syndrome [POTS]; J45.909 Unspecified asthma, uncomplicated; I25.2 Old myocardial infarction; Z87.891 Personal history of nicotine dependence; Z88.0 Allergy status to penicillin; Z88.1 Allergy status to other antibiotic agents; Z88.2 Allergy status to sulfonamides; Z88.8 Allergy status to other drugs, medicaments and biological substances; Z91.040 Latex allergy status; Z91.018 Allergy to other foods; Z79.51 Long term (current) use of inhaled steroids; Z79.899 Other long term (current) drug therapy
CPT/HCPCS: 71045; 80053; 83735; 84703; 85025; 93005; 93010; 96361; 96374; 99284-25; J1885; J7030

== ENCOUNTER 2024-05-06 00:14 | Emergency (ER) | payer OTHER ==
[~2024-05-06] VITALS: Ht 167.6 cm; Wt 90.7 kg
[~2024-05-06 00:14] MED LIST changes: +AMPDEX10CR PO; +BUDE.25 INH
[2024-05-06 00:29] VITALS: BP 130/91
== END 2024-05-06 04:58 | disposition left against medical advice (07) ==
LOC: ER 00:14
DX: R06.02 Shortness of breath (principal); T78.40XA Allergy, unspecified, initial encounter; Z53.21 Procedure and treatment not carried out due to patient leaving prior to being seen by health care provider
CPT/HCPCS: 93005; 93010

== ENCOUNTER → 2024-06-11 | Outpatient (CLI) | payer OTHER ==
[~2024-06-11] MED LIST changes: +BABYBIG100 MG INJ; +KETO10 PO; +XYZAL5 MG PO
[2024-06-12 13:20] LABS: Candida Group, PCR NOT DETECTED (NOT DETECT); Candida glabrata-krusei, PCR NOT DETECTED (NOT DETECT)
[2024-06-12 13:51] LABS: Bacterial Vaginosis PCR Positive (NEGATIVE)
== END ==
LOC: LAB SHORT 16:19 → LAB 16:19
PROVIDERS: Nurse Practitioner
DX: R30.0 Dysuria (principal)
CPT/HCPCS: 81515; 87086

== ENCOUNTER 2024-06-12 17:02 | Inpatient (IN) | payer OTHER ==
[~2024-06-12] VITALS: Ht 167.6 cm; Wt 97.9 kg
[~2024-06-12 17:02] MED LIST changes: -BABYBIG100 MG INJ; -KETO10 PO; -XYZAL5 MG PO
[2024-06-12] MEDS ORDERED: Acetaminophen 500 MG Tab PO ONE (17:35)
[2024-06-12 18:02] LABS: BASOPHILS ABSOLUTE AUTO 0.03 K/mm3 (0.00-0.23); BASOPHILS PERCENT AUTO 0 % (0-2); EOSINOPHILS ABSOLUTE AUTO 0.18 K/mm3 (0.00-0.68); EOSINOPHILS PERCENT AUTO 1 % (0-6); Hematocrit 38.3 % (33.0-51.0); Hemoglobin 12.4 g/dL (11.5-16.0); IMMATURE GRAN ABSOLUTE AUTO 0.07 K/mm3 (0.00-0.10); IMMATURE GRAN PERCENT AUTO 0 % (0-1); LYMPHOCYTES ABSOLUTE AUTO 0.97 K/mm3 (0.84-5.20); LYMPHOCYTES PERCENT AUTO 5 % (21-46); MONOCYTES ABSOLUTE AUTO 0.23 K/mm3 (0.16-1.47); MONOCYTES PERCENT AUTO 1 % (4-13); Mean Corpuscular HGB Conc 32.4 g/dL (31.5-36.5); Mean Corpuscular Volume 96 fL (80-100); Mean Platelet Volume 11.6 fL (9.1-12.4); NEUTROPHILS ABSOLUTE AUTO 17.37 K/mm3 (1.96-9.15); NEUTROPHILS PERCENT AUTO 92 % (41-73); Platelet Count 211 K/mm3 (150-400); RDW Coefficient Variation 12.9 % (11.7-14.2); RDW Standard Deviation 45.5 fL (35.1-46.3); White Blood Cell Count 18.85 K/mm3 (4.00-11.30)
[2024-06-12 18:52] LABS: Bilirubin, Total 0.6 mg/dL (0.1-1.0); Bun/Creatinine Ratio 17.9 (12.0-20.0); Calcium, Blood 8.6 mg/dL (8.5-10.1); Creatinine, Blood 0.73 mg/dL (0.40-1.00); Globulin, Blood 3.9 g/dL (2.2-4.0); Potassium, Blood 3.7 mmol/L (3.5-5.5); Total Protein, Blood 7.9 g/dL (6.4-8.2)
[2024-06-12 18:53] LABS: Influenza A, PCR NEGATIVE (NEGATIVE); Influenza B, PCR NEGATIVE (NEGATIVE); Resp Syncytial Virus, PCR NEGATIVE (NEGATIVE); SARS-Cov-2 (COVID-19) PCR, MMC NEGATIVE (NEGATIVE)
[2024-06-12 20:09] LABS: Source, Urine Clean Catch
[2024-06-12] MEDS ORDERED: NS 1,000 ML IV SCH ×3 (20:10→23:20)
[2024-06-12 20:13] LABS: Appearance, Urine Cloudy (Clear); Bilirubin, Urine Neg (Neg); Blood, Urine 5+ (Neg); Glucose Qualitative, Urine Neg (Neg); Ketones, Urine Neg (Neg); Leukocyte Esterase, Urine 3+ (Neg); Nitrite, Urine Pos (Neg); Protein, Urine 3+ (Neg); Specific Gravity, Urine 1.015 (1.003-1.022); Urobilinogen, Urine NORM (Normal)
[2024-06-12] MEDS ORDERED: CefTRIAXone Sodium 1,000 MG in NS 100 ML IV ONE (20:15)
[2024-06-12 20:20] LABS: Color, Urine Pale Yellow (P-Yellow)
[2024-06-12 20:21] LABS: Bacteria Many /hpf; Squamous Epithelial Cells Few /hpf (Few); White Blood Cells, Urine TNTC /hpf (0-5)
[2024-06-12] MEDS ORDERED: Morphine Sulfate 4 MG/1 ML Injection IV ONE ×2 (21:10→22:40)
[2024-06-12] MEDS ORDERED: Ketorolac Tromethamine 15mg Vial IV ONE (22:40)
[2024-06-12] MEDS ORDERED: HYDROmorphone HCl/Pf 1MG SYR IV ONE (23:00)
[2024-06-12] MEDS ORDERED: FentaNYL Citrate 50 MCG/ML 2 ML Injection IV PRN (23:15)
[2024-06-12] MEDS ORDERED: Acetaminophen 325 MG TABLET PO PRN (23:20)
[2024-06-12] MEDS ORDERED: FLU VACC TS2024-25(6MOS UP)/PF 45 MCG/0.5 ML SYRINGE IM ONE (23:20)
[2024-06-12] MEDS ORDERED: Ondansetron HCl 2 MG / ML 2ML Vial IV PRN (23:20)
[2024-06-13] MEDS ORDERED: KETO10 PO (00:10)
[2024-06-13] MEDS ORDERED: ACET500 PO (00:13)
[2024-06-13] MEDS ORDERED: XYZAL5 MG PO (00:15)
[2024-06-13] MEDS ORDERED: Enoxaparin 40 MG/0.4 ML SYR SC SCH (00:18)
[2024-06-13] MEDS ORDERED: BABYBIG100 MG INJ (00:44)
[2024-06-13 01:42] VITALS: BP 105/60
--- NOTE | 2024-06-13 02:06 | NUR ---
Report received from ER nurse Lexi SMITH before arrival from ED. Upon arrival patient comes up in a wheelchair. Alert, orietated. On room air. Is able to participate in admission process with a full medication history. States she has a friend coming up with crackers and water from [employer]. Also states she is going through a divorce and only wants one person notified of her hospitalization. His name is Jason Fletcher (boyfriend). Admission complete. Patient aware of safety, fall, and plan of care.
[2024-06-13 03:16] VITALS: BP 101/52
[2024-06-13 03:57] LABS: BASOPHILS ABSOLUTE AUTO 0.03 K/mm3 (0.00-0.23); BASOPHILS PERCENT AUTO 0 % (0-2); EOSINOPHILS PERCENT AUTO 0 % (0-6); Hematocrit 34.3 % (33.0-51.0); Hemoglobin 11.2 g/dL (11.5-16.0); IMMATURE GRAN ABSOLUTE AUTO 0.09 K/mm3 (0.00-0.10); IMMATURE GRAN PERCENT AUTO 0 % (0-1); LYMPHOCYTES ABSOLUTE AUTO 0.66 K/mm3 (0.84-5.20); LYMPHOCYTES PERCENT AUTO 3 % (21-46); MONOCYTES ABSOLUTE AUTO 0.84 K/mm3 (0.16-1.47); MONOCYTES PERCENT AUTO 4 % (4-13); Mean Corpuscular HGB 31.1 pg (26.0-34.0); Mean Corpuscular HGB Conc 32.7 g/dL (31.5-36.5); Mean Corpuscular Volume 95 fL (80-100); Mean Platelet Volume 11.9 fL (9.1-12.4); NEUTROPHILS PERCENT AUTO 92 % (41-73); Platelet Count 202 K/mm3 (150-400); RDW Coefficient Variation 13.1 % (11.7-14.2); RDW Standard Deviation 45.9 fL (35.1-46.3); White Blood Cell Count 20.72 K/mm3 (4.00-11.30)
[2024-06-13 04:24] LABS: Albumin, Blood 3.2 g/dL (3.4-5.0); Albumin/Globulin Ratio 0.9 (0.8-1.8); Bilirubin, Total 0.4 mg/dL (0.1-1.0); Bun/Creatinine Ratio 13.6 (12.0-20.0); Calcium, Blood 7.6 mg/dL (8.5-10.1); Creatinine, Blood 0.73 mg/dL (0.40-1.00); Globulin, Blood 3.5 g/dL (2.2-4.0); Potassium, Blood 3.7 mmol/L (3.5-5.5); Total Protein, Blood 6.7 g/dL (6.4-8.2)
--- NOTE | 2024-06-13 05:46 | NUR ---
EOS Note: Patient has no changes since arrvial to the unit. Afebrile. Voided once. Urine is very cloudy. Remains NPO due to nausea. Medicated once upon arrival to unit. Now says "Just give me some Zofran, then I can eat." MD stopped in room this AM. Medicated for pain with Fentanyl with some relief. Patient seems to be more focused on eating at this time. Continue Care.
[2024-06-13 07:49] VITALS: BP 95/59
--- NOTE | 2024-06-13 08:02 | NUR ---
AM NOTE PT ALERT, ORIENTED X4; CALM AND COOPERATIVE WITH CARE. PT UP WITH SBA IN ROOM. PT REPORTING RIGHT FLANK PAIN, 8/10, WILL MEDICDATED PER EMAR. PT REPORT LIGHTHEADEDNESS, BP SOFT 95/59 (71). TELE SINUS 90'S. GENERALIZED EDEMA, PT REPORTS FEELING "SWOLLEN". SPO2 >90% ON RA, BREATHING EVEN AND UNLABORED. ABD SOFT, NONTENDER, +BT T/O. OTHER VSS. NO OTHER ACUTE CHANGES NOTED. WILL CONTINUE TO MONITOR. DISCUSSED CONFIDENTIALITY WITH PATIENT, AT THIS TIME, PATIENT IS REQUESTING TO BECOME CONFIDENTIAL; NOTIFIED ADMITTING AND WEIGH MACHINE OPERATOR.
[2024-06-13] MEDS ORDERED: Ketorolac Tromethamine 15mg Vial IV PRN (08:55)
[2024-06-13] MEDS ORDERED: CefTRIAXone Sodium 1,000 MG in NS 100 ML IV SCH ×2 (10:30→21:00)
[2024-06-13] MEDS ORDERED: HYDROmorphone HCl 0.5 MG/0.5 ML SYR IV PRN (11:15)
[2024-06-13] MEDS ORDERED: NS 250 ML IV PRN (14:55)
[2024-06-13 15:25] VITALS: BP 105/51
[2024-06-13] MEDS ORDERED: Cefepime HCl 2,000 MG in NS 100 ML IV SCH (16:00)
--- NOTE | 2024-06-13 16:54 | NUR ---
Shift Summary Patient continues to report r flank pain t/o shift, duscussed pain management with Dr Noel; new orders entered. Soft bp but stable bp. Other vss. No other acute changes noted. Will continue to monitor.
[2024-06-13 21:35] VITALS: BP 92/60
[2024-06-13] MEDS ORDERED: Melatonin 3 MG Tab PO PRN (23:40)
[2024-06-14] VITALS (7 sets, daily range): BP systolic 93–117; BP diastolic 59–78
[2024-06-14] MEDS ORDERED: HYDROmorphone HCl 0.5 MG/0.5 ML SYR IV ONE (00:15)
--- NOTE | 2024-06-14 05:51 | NUR ---
NOC SUMMARY- PT PAIN MANAGED PER EMAR. PT REQUIRED A BREAKTHROUGH DOSE OF DILAUDID. PROVIDER CALLED AND ORDERED OT DOSE OF PAIN MED. PT REPORTS HAVING SUDDEN EPISODES OF FLANK PAIN. PT WAS ABLE TO SHOWER THIS SHIFT. PT REPORTED FEELING MUCH BETTER. PT IS VOIDING WELL. PT FOUND TO HAVE A TEMP AND WAS GIVEN TYLENOL. PT CURRENTLY RESTING QUIETLY. CALL LIGHT IN REACH.
--- NOTE | 2024-06-14 07:32 | NUR ---
AM NOTE PT ALERT, ORIENTED X4; CALM AND COOPERATIVE WITH CARE. PT RESTING IN BED, UP WITH 1 PERSON ASSIST. PT REPORT PAIN TO RIGHT FLANK 8/10; MEDICATED WITH TORADOL X1. PT FEBRILE, 101.0; MEDICATED WITH TORADOL. PT DENIES CHEST PAIN/PRESSURE, SOB, AND NUAUSEA. PT REPORTS CHRONIC DIZZINESS WHEN STANDING, R/T HX OF POTS. TELE SINUS 70-80'S, BP SOFT BUT STABLE. SPO2 >90% ON RA, BREATHING EVEN AND UNLABORED. ABD SOFT, NONTENDER, HYPOACTIVE B/T T/O; NO BM SINCE 06/11/24, WHICH WAS DIARRHEA. PT REPORTS "A RASH" DEVELOPING BETWEEN HER LEGS, NO REDNESS OR BUMPS NOTED, EDUCATED TO KEEP CLEAN AND DRY. OTHER VSS. NO OTHER ACUTE CHANGES NOTED. WILL CONTINUE TO MONITOR.
--- NOTE | 2024-06-14 08:21 | NUR ---
REPORT GIVEN TO RN ASSUMING CARE OF PATIENT, PATIENT TO BE MOVED ONCE FINISHED BREAKFAST.
--- NOTE | 2024-06-14 08:57 | NUR ---
TRANSFER NOTE PATIENT TRANSFERRED TO UNIT AT APPROX 0830. PATIENT ALERT AND ORIENTED X4. COMMUNICATING NEEDS EFFECTIVELY. VSS. AFEBRILE. REPORTING 10/16 HEADACHE - MD CONTACTED BY ENVIRONMENTAL REMEDIATION CONSULTANT ROMAN TO RESUME HOME MEDICATION MANAGEMENT. MD TO REVIEW CHART AND PLACE ORDERS. AT BEDSIDE - SEE CHARGE RNs NOTE REGARDING CONFIDENTIAL STATUS. CALL LIGHT IN REACH. REVIEWED MEERA Escobedo CHARTING (INCLUDING ASSESSMENT) - THIS RN AGREES WITH DOCUMENTATION.
--- NOTE | 2024-06-14 08:58 | NUR ---
PT TO FLOOR AT APROX 0840 FROM PCU, PT REPORTS MIGRAINE UPON ARRIVAL DR NUNO NOTIFIED AND WILL PUT IN NEW ORDERS TO TREAT. PT LEFT ROOM, THIS RN ASKED PT IF SHE FELT SAFE AT THIS TIME WITH -PT STATES YES. THIS RN ALSO DISCUSSED WITH PT THE POSSIBILITY OF SETTING UP A SAFE WORD OR PHRASE TO USE IF SHE BEGINS TO FEEL UNSAFE AND NEEDS US TO ASK THE TO LEAVE, PT STATES SHE WILL COME UP WITH SOMETHING AND DISCUSS W/PRIMARY RN.
[2024-06-14] MEDS ORDERED: Lactobacil 2-S.Thermo-Bifido 1 1 Cap PO SCH (09:00)
[2024-06-14] MEDS ORDERED: Acetamin/Butalbital/Caffeine Tab PO PRN (09:05)
[2024-06-14] MEDS ORDERED: Meropenem 1,000 MG in NS 100 ML IV SCH (10:00)
--- NOTE | 2024-06-14 16:30 | NUR ---
SHIFT SUMMARY NO ACUTE CHANGES SINCE ARRIVAL TO UNIT. PATIENT REMAINS ALERT AND ORIENTED X4. COMMUNICATING NEEDS EFFECTIVELY. AT BEDSIDE THROUGHOUT DAY. PATIENT SLEPT MAJORITY OF THE MORNING AND AFTERNOON FOLLOWING TRANSFER - EASILY AROUSABLE WITH VERBAL STIMULI. VSS. SBP 100s. MAP >65. TELEMETRY SHOWING SINUS 90s. MILD DIZZINESS WITH STANDING RELATED TO POTS - ASSISTING WITH AMBULATION. ON ROOM AIR, SATs >90%. DENIES SHORTNESS OF BREATH. X1 EPISODE OF NAUSEA, NO VOMITING - IV ZOFRAN ADMINISTERED PER EMAR. VOIDING. MANAGING LOWER BACK PAIN PER EMAR. HEADACHE PAIN IMPROVED FOLLOWING FIORICET ADMINISTRATION PER EMAR. CALL LIGHT IN REACH.
[2024-06-15] VITALS (7 sets, daily range): BP systolic 86–110; BP diastolic 53–72
--- NOTE | 2024-06-15 05:43 | NUR ---
NOC SUMMARY- PT HAS BEEN RESTING COMFORTABLY FOR MOST OF SHIFT. THIS AM PT WOKE WITH SEVERE PAIN. PT TX WITH DILAUDID WITH RELIEF. NO OTHER ISSUES NOTED THIS SHIFT. PT CURRENTLY SLEEPING IN NO DISTRESS.
[2024-06-15 05:49] LABS: BASOPHILS ABSOLUTE AUTO 0.01 K/mm3 (0.00-0.23); BASOPHILS PERCENT AUTO 0 % (0-2); EOSINOPHILS ABSOLUTE AUTO 0.09 K/mm3 (0.00-0.68); EOSINOPHILS PERCENT AUTO 1 % (0-6); Hematocrit 30.9 % (33.0-51.0); Hemoglobin 9.9 g/dL (11.5-16.0); IMMATURE GRAN ABSOLUTE AUTO 0.02 K/mm3 (0.00-0.10); IMMATURE GRAN PERCENT AUTO 0 % (0-1); LYMPHOCYTES ABSOLUTE AUTO 1.17 K/mm3 (0.84-5.20); LYMPHOCYTES PERCENT AUTO 16 % (21-46); MONOCYTES ABSOLUTE AUTO 0.97 K/mm3 (0.16-1.47); MONOCYTES PERCENT AUTO 13 % (4-13); Mean Corpuscular HGB 30.9 pg (26.0-34.0); Mean Corpuscular Volume 97 fL (80-100); Mean Platelet Volume 12.2 fL (9.1-12.4); NEUTROPHILS ABSOLUTE AUTO 5.04 K/mm3 (1.96-9.15); NEUTROPHILS PERCENT AUTO 69 % (41-73); Platelet Count 161 K/mm3 (150-400); RDW Coefficient Variation 12.9 % (11.7-14.2)
[2024-06-15 06:11] LABS: Albumin, Blood 2.9 g/dL (3.4-5.0); Anion Gap 9 mmol/L (3-11); Blood Urea Nitrogen 7 mg/dL (8-24); Bun/Creatinine Ratio 10.5 (12.0-20.0); CO2, Blood 24 mmol/L (21-32); Calcium, Blood 8.2 mg/dL (8.5-10.1); Chloride, Blood 108 mmol/L (98-108); Creatinine, Blood 0.67 mg/dL (0.40-1.00); Glomerular Filtration Rate 121 (60-); Glucose, Blood 107 mg/dL (70-99); Phosphorus, Blood 3.4 mg/dL (2.5-4.9); Potassium, Blood 3.8 mmol/L (3.5-5.5); Sodium, Blood 137 mmol/L (136-145)
[2024-06-15] MEDS ORDERED: NS 1,000 ML IV SCH (12:50)
[2024-06-15] MEDS ORDERED: Ibuprofen 600 MG Tab PO PRN (12:55)
[2024-06-15] MEDS ORDERED: OxyCODONE HCL 5 MG TAB PO PRN (12:55)
--- NOTE | 2024-06-15 16:28 | NUR ---
SHIFT SUMMARY THIS RN ASSUMED CARE AT APPROX 0715. PATIENT ALERT AND ORIENTED X4. SBA WITH MOBILITY, INDEPENDENT WITH ADLs. COMMUNICATES NEEDS EFFECTIVELY. SPOUSE AT BEDSIDE ASSISTING WITH CARE. BP SOFT. SBP 90s-100s. MAP >65. ASYMPTOMATIC. X1 BAG OF IVF INFUSING PER EMAR. TELEMETRY SHOWING SINUS 70s PER CASTER OPERATOR - NO EVENTS REPORTED. ON ROOM AIR, SATs >90%. DENIES SHORTNESS OF BREATH. MANAGING PAIN PER EMAR WITH PO TYLENOL AND IBUPROFEN. TOLERATING PO INTAKE - DECREASED APPETITE. ENCOURAGING INCREASED PO INTAKE TOLERATED. VOIDING. CALL LIGHT IN REACH.
[2024-06-16 00:01] VITALS: BP 112/71
[2024-06-16 04:36] VITALS: BP 114/89
[2024-06-16 07:21] VITALS: BP 127/83
[2024-06-16] MEDS ORDERED: OXYC5 PO (11:13)
[2024-06-16 11:25] VITALS: BP 126/90
[2024-06-16] MEDS ORDERED: VISBIOME 112.51 EACH PO (11:27)
[2024-06-16] MEDS ORDERED: LEVAQUIN750 MG PO (11:29)
[2024-06-16] MEDS ORDERED: NITR100CA PO (11:31)
--- NOTE | 2024-06-16 12:12 | NUR ---
discharged at 1151 reviewed dc instructions w/pt; verbalized understanding. faxed prescriptions to [facility] per pt request; rec'd confirmation of fax transmittal. pt left unit by ambulation, declining wc to meet ride outside w/possessions and dc paperwork in hand.
== END 2024-06-16 11:53 | disposition home or self-care (01) | DRG 872 ==
LOC: ER 17:02 → PCU 23:13 → SURS 23:13 → PCU 06-13 00:01 → SURS 06-14 08:37
PROVIDERS: Internal Medicine; Student in an Organized Health Care Education/Training Program; ADMIT Internal Medicine
DX: A41.51 Sepsis due to Escherichia coli [E. coli] (principal); Z16.12 Extended spectrum beta lactamase (ESBL) resistance; N10 Acute pyelonephritis; J45.909 Unspecified asthma, uncomplicated; I73.00 Raynaud's syndrome without gangrene; F43.10 Post-traumatic stress disorder, unspecified; N28.89 Other specified disorders of kidney and ureter; Z87.440 Personal history of urinary (tract) infections; Z91.040 Latex allergy status; Z88.2 Allergy status to sulfonamides; Z88.8 Allergy status to other drugs, medicaments and biological substances; Z88.1 Allergy status to other antibiotic agents; Z88.0 Allergy status to penicillin; I25.2 Old myocardial infarction; Z79.51 Long term (current) use of inhaled steroids; Z87.891 Personal history of nicotine dependence; G62.9 Polyneuropathy, unspecified; R30.0 Dysuria
CPT/HCPCS: 0241U; 36415; 74177; 80053; 80069; 81001; 81515; 83605; 83880; 85025; 87040; 87077; 87086; 87186; 93922; 96374-59; 96375; 99285-25; A9270; J0692; J0696; J1171; J1650; J1885; J2185; J2270; J2405; J3010; J7030; J7050; Q9967

== ENCOUNTER → 2024-06-23 | Outpatient (CLI) | payer OTHER ==
[~2024-06-23] MED LIST changes: +BABYBIG100 MG INJ; +KETO10 PO; +LEVAQUIN750 MG PO; +MEROPENEM114 IV; +VISBIOME 112.51 EACH PO; +XYZAL5 MG PO
== END | disposition home or self-care (01) ==
LOC: LAB SHORT 16:51 → LAB 16:51
DX: N39.0 Urinary tract infection, site not specified (principal)
CPT/HCPCS: 87077; 87086; 87186

== ENCOUNTER 2024-06-25 10:58 | Emergency (ER) | payer OTHER ==
[~2024-06-25] VITALS: Ht 167.6 cm; Wt 98.4 kg
[~2024-06-25 10:58] MED LIST changes: -MEROPENEM114 IV
[2024-06-25] MEDS ORDERED: FentaNYL Citrate 50 MCG/ML 2 ML Injection IV ONE (11:30)
[2024-06-25 12:00] LABS: Source, Urine Clean Catch
[2024-06-25 12:28] LABS: BASOPHILS ABSOLUTE AUTO 0.05 K/mm3 (0.00-0.23); BASOPHILS PERCENT AUTO 1 % (0-2); EOSINOPHILS ABSOLUTE AUTO 0.47 K/mm3 (0.00-0.68); EOSINOPHILS PERCENT AUTO 6 % (0-6); Hematocrit 39.8 % (33.0-51.0); Hemoglobin 13.1 g/dL (11.5-16.0); IMMATURE GRAN ABSOLUTE AUTO 0.04 K/mm3 (0.00-0.10); IMMATURE GRAN PERCENT AUTO 1 % (0-1); LYMPHOCYTES PERCENT AUTO 25 % (21-46); MONOCYTES ABSOLUTE AUTO 0.49 K/mm3 (0.16-1.47); MONOCYTES PERCENT AUTO 7 % (4-13); Mean Corpuscular HGB 30.5 pg (26.0-34.0); Mean Corpuscular HGB Conc 32.9 g/dL (31.5-36.5); Mean Corpuscular Volume 93 fL (80-100); NEUTROPHILS ABSOLUTE AUTO 4.55 K/mm3 (1.96-9.15); NEUTROPHILS PERCENT AUTO 61 % (41-73); RDW Coefficient Variation 12.8 % (11.7-14.2); RDW Standard Deviation 43.6 fL (35.1-46.3)
[2024-06-25 12:32] LABS: Albumin, Blood 3.9 g/dL (3.4-5.0); Albumin/Globulin Ratio 0.9 (0.8-1.8); Bilirubin, Total 0.2 mg/dL (0.1-1.0); Bun/Creatinine Ratio 15.6 (12.0-20.0); Calcium, Blood 9.1 mg/dL (8.5-10.1); Creatinine, Blood 0.77 mg/dL (0.40-1.00); Globulin, Blood 4.3 g/dL (2.2-4.0); Potassium, Blood 4.3 mmol/L (3.5-5.5); Total Protein, Blood 8.2 g/dL (6.4-8.2)
[2024-06-25 13:07] LABS: Appearance, Urine Clear (Clear); Bilirubin, Urine Neg (Neg); Blood, Urine Neg (Neg); Color, Urine Yellow (P-Yellow); Glucose Qualitative, Urine Neg (Neg); Ketones, Urine Neg (Neg); Leukocyte Esterase, Urine 1+ (Neg); Nitrite, Urine Neg (Neg); Protein, Urine Neg (Neg); Specific Gravity, Urine 1.005 (1.003-1.022); Urobilinogen, Urine NORM (Normal); pH, Urine 6.5 (5.0-8.0)
[2024-06-25 13:28] LABS: Bacteria Many /hpf; Red Blood Cells, Urine 0-2 /hpf (0-2); Squamous Epithelial Cells Mod /hpf (Few)
[2024-06-25 14:37] LABS: Platelet Count 323 K/mm3 (150-400)
[2024-06-25] MEDS ORDERED: Meropenem 1,000 MG in NS 100 ML IV ONE (17:10)
[2024-06-25 19:00] VITALS: BP 131/76
[2024-06-26] MEDS ORDERED: Percocet 5-3251 EACH PO (09:31)
[2024-06-26] MEDS ORDERED: ONDA4ODT MM (09:31)
[2024-06-26] MEDS ORDERED: MEROPENEM114 IV (16:43)
== END 2024-06-25 19:03 | disposition home or self-care (01) ==
LOC: ER 10:58
PROVIDERS: Student in an Organized Health Care Education/Training Program
DX: N13.6 Pyonephrosis (principal); J45.909 Unspecified asthma, uncomplicated; Z87.891 Personal history of nicotine dependence; Z91.040 Latex allergy status; Z88.0 Allergy status to penicillin; Z91.018 Allergy to other foods; Z88.1 Allergy status to other antibiotic agents; Z88.9 Allergy status to unspecified drugs, medicaments and biological substances; Z88.2 Allergy status to sulfonamides; Z88.8 Allergy status to other drugs, medicaments and biological substances; Z79.51 Long term (current) use of inhaled steroids; Z79.1 Long term (current) use of non-steroidal anti-inflammatories (NSAID); Z79.899 Other long term (current) drug therapy; Z79.02 Long term (current) use of antithrombotics/antiplatelets; Z16.20 Resistance to unspecified antibiotic
CPT/HCPCS: 74177; 80053; 81001; 83605; 83690; 85025; 85049; 87040; 96365-59; 96375; 99284-25; J2185; J3010; Q9967

== ENCOUNTER 2024-06-25 23:59 | Emergency (ER) | payer OTHER ==
[~2024-06-25] VITALS: Ht 167.6 cm; Wt 98.4 kg
[2024-06-26 00:20] VITALS: BP 110/85
[2024-06-26] MEDS ORDERED: Meropenem 1,000 MG in NS 100 ML IV ONE (00:25)
[2024-06-26] MEDS ORDERED: Ondansetron HCl 2 MG / ML 2ML Vial IV ONE (00:25)
[2024-06-26] MEDS ORDERED: Morphine Sulfate 4 MG/1 ML Injection IV ONE (00:25)
[2024-06-26] MEDS ORDERED: Percocet 5-3251 EACH PO (09:31)
[2024-06-26] MEDS ORDERED: ONDA4ODT MM (09:31)
[2024-06-26] MEDS ORDERED: MEROPENEM114 IV (16:43)
== END 2024-06-26 01:18 | disposition home or self-care (01) ==
LOC: ER 23:59
DX: Z76.0 Encounter for issue of repeat prescription (principal); Z16.12 Extended spectrum beta lactamase (ESBL) resistance; J45.909 Unspecified asthma, uncomplicated; Z87.891 Personal history of nicotine dependence; Z88.0 Allergy status to penicillin; Z91.040 Latex allergy status; Z91.018 Allergy to other foods; Z88.1 Allergy status to other antibiotic agents; Z88.9 Allergy status to unspecified drugs, medicaments and biological substances; Z88.8 Allergy status to other drugs, medicaments and biological substances; Z88.2 Allergy status to sulfonamides; Z79.51 Long term (current) use of inhaled steroids; Z79.1 Long term (current) use of non-steroidal anti-inflammatories (NSAID); Z79.02 Long term (current) use of antithrombotics/antiplatelets; Z79.891 Long term (current) use of opiate analgesic; Z79.2 Long term (current) use of antibiotics; Z16.20 Resistance to unspecified antibiotic
CPT/HCPCS: 96365; 96375; 99281; J2185; J2270; J2405

== ENCOUNTER 2024-06-26 11:02 | Day surgery (SDC) | payer OTHER ==
[2024-06-26] MEDS ORDERED: Meropenem 1,000 MG in NS 100 ML IV SCH (16:30)
[2024-06-26 16:33] VITALS: BP 111/81
[2024-06-26] MEDS ORDERED: MEROPENEM114 IV (16:43)
[2024-06-26 23:15] VITALS: BP 119/78
== END 2024-06-26 23:00 | disposition home or self-care (01) ==
LOC: ATC 11:02
DX: N12 Tubulo-interstitial nephritis, not specified as acute or chronic (principal); B96.20 Unspecified Escherichia coli [E. coli] as the cause of diseases classified elsewhere; Z88.0 Allergy status to penicillin; Z91.040 Latex allergy status; Z88.2 Allergy status to sulfonamides; Z91.010 Allergy to peanuts; F43.10 Post-traumatic stress disorder, unspecified; J45.909 Unspecified asthma, uncomplicated; Z02.89 Encounter for other administrative examinations; F43.12 Post-traumatic stress disorder, chronic
CPT/HCPCS: 80053; 85025; 96365; 96374; 96375; 96376; 99282-25; C1751; J2185; J2270; J2405

== ENCOUNTER 2024-06-27 03:48 | Day surgery (SDC) | payer OTHER ==
[~2024-06-27 03:48] MED LIST changes: +MEROPENEM114 IV; +Meropenem 1,000 MG in NS 100 ML IV SCH
[2024-06-27 08:38] VITALS: BP 109/68
[2024-06-27 16:27] VITALS: BP 106/66
[2024-06-27 23:00] VITALS: BP 116/72
--- NOTE | 2024-06-27 23:30 | NUR ---
DEPARTURE IV INFUSION COMPLETE PER EMAR. CAPS CHANGED ON LUE POWERFLIDE, FLASH NOTED WHEN PULLING BACK ON LINE. PT HEADING HOME W/ . VSS.
== END 2024-06-27 23:00 | disposition home or self-care (01) ==
LOC: ATC 03:48
DX: N10 Acute pyelonephritis (principal); B96.20 Unspecified Escherichia coli [E. coli] as the cause of diseases classified elsewhere; F43.10 Post-traumatic stress disorder, unspecified; Z88.0 Allergy status to penicillin; Z91.040 Latex allergy status; Z91.010 Allergy to peanuts; Z91.09 Other allergy status, other than to drugs and biological substances; Z87.891 Personal history of nicotine dependence
CPT/HCPCS: 96365; 96376; J2185

== ENCOUNTER 2024-06-28 08:18 | Day surgery (SDC) | payer OTHER ==
[2024-06-28 08:21] VITALS: BP 105/76
[2024-06-28 16:33] VITALS: BP 106/73
[2024-06-28 23:20] VITALS: BP 126/81
--- NOTE | 2024-06-28 23:48 | NUR ---
INFUSION INFUSION COMPLETE PER EMAR. VSS. PT ENDORSES NO NEW ALLERGIES OR MEDICATIONS. CAPS CHANGED ON POWERGLIDE, FLASH NOTED WHEN LINE IS DRAWN BACK ON. NO PAIN WITH INFUSION. PT LEFT W/ALL NEEDS MET.
== END 2024-06-28 23:00 | disposition home or self-care (01) ==
LOC: ATC 08:18
DX: N12 Tubulo-interstitial nephritis, not specified as acute or chronic (principal); B96.20 Unspecified Escherichia coli [E. coli] as the cause of diseases classified elsewhere; Z16.12 Extended spectrum beta lactamase (ESBL) resistance; Z87.891 Personal history of nicotine dependence; Z88.0 Allergy status to penicillin; Z88.2 Allergy status to sulfonamides; Z88.1 Allergy status to other antibiotic agents; Z88.8 Allergy status to other drugs, medicaments and biological substances; Z79.899 Other long term (current) drug therapy
CPT/HCPCS: 96365; J2185

== ENCOUNTER 2024-06-29 08:28 | Day surgery (SDC) | payer OTHER ==
[2024-06-29 08:31] VITALS: BP 109/68
[2024-06-29 16:34] VITALS: BP 115/80
[2024-06-29 23:06] VITALS: BP 118/83
--- NOTE | 2024-06-29 23:36 | NUR ---
INFUSION UPDATE INFUSION COMPELTED PER EMAR. PWERGLIDE CAPS CHANGED, FLASH NOTED WHEN DRAWING BACK ON LINE. NO DISCOMFORT W/INFUSION. VSS. PT DENIES ACUTE NEEDS AT THIS TIME.
== END 2024-06-29 23:00 | disposition home or self-care (01) ==
LOC: ATC 08:28
DX: N12 Tubulo-interstitial nephritis, not specified as acute or chronic (principal); B96.20 Unspecified Escherichia coli [E. coli] as the cause of diseases classified elsewhere; Z16.12 Extended spectrum beta lactamase (ESBL) resistance; Z88.0 Allergy status to penicillin; Z88.2 Allergy status to sulfonamides; Z88.1 Allergy status to other antibiotic agents; Z88.8 Allergy status to other drugs, medicaments and biological substances; Z79.899 Other long term (current) drug therapy
CPT/HCPCS: 96365; 96376; J2185

== ENCOUNTER 2024-06-30 02:18 | Day surgery (SDC) | payer OTHER ==
[~2024-06-30 02:18] MED LIST changes: -Meropenem 1,000 MG in NS 100 ML IV SCH
[2024-06-30] MEDS ORDERED: Meropenem 1,000 MG in NS 100 ML IV SCH (06:00)
[2024-06-30 08:30] VITALS: BP 99/70
[2024-06-30 16:44] VITALS: BP 127/88
[2024-06-30 23:20] VITALS: BP 119/72
--- NOTE | 2024-06-30 23:58 | NUR ---
ABX STOP TIME 4232. PT PEARL WELL.
== END 2024-06-30 22:57 | disposition home or self-care (01) ==
LOC: ATC 02:18
DX: N12 Tubulo-interstitial nephritis, not specified as acute or chronic (principal); B96.20 Unspecified Escherichia coli [E. coli] as the cause of diseases classified elsewhere; Z16.12 Extended spectrum beta lactamase (ESBL) resistance; J45.909 Unspecified asthma, uncomplicated; Z87.891 Personal history of nicotine dependence; Z88.0 Allergy status to penicillin; Z88.2 Allergy status to sulfonamides; Z88.1 Allergy status to other antibiotic agents; Z79.899 Other long term (current) drug therapy
CPT/HCPCS: 96365; J2185

== ENCOUNTER 2024-07-01 03:07 | Day surgery (SDC) | payer OTHER ==
[2024-07-01] MEDS ORDERED: Meropenem 1,000 MG in NS 100 ML IV SCH (06:00)
[2024-07-01 08:27] VITALS: BP 103/65
[2024-07-01 16:36] VITALS: BP 97/72
[2024-07-01 23:00] VITALS: BP 120/85
[2024-07-02] MEDS ORDERED: Meropenem 1,000 MG in NS 100 ML IV SCH (06:00)
--- NOTE | 2024-07-08 03:10 | NUR ---
ABX NOTE LATE ENTRY- MEROPEN[facility] ABX STARTED AT 2305 ON 07/01/24 AND ENDED AT 2335. UNABLET TO DOCUMENT IN EMAR.
== END 2024-07-01 22:59 | disposition home or self-care (01) ==
LOC: ATC 03:07
DX: N12 Tubulo-interstitial nephritis, not specified as acute or chronic (principal); B96.20 Unspecified Escherichia coli [E. coli] as the cause of diseases classified elsewhere; Z16.12 Extended spectrum beta lactamase (ESBL) resistance; J45.909 Unspecified asthma, uncomplicated; Z87.891 Personal history of nicotine dependence; Z88.0 Allergy status to penicillin; Z88.2 Allergy status to sulfonamides; Z88.1 Allergy status to other antibiotic agents; Z79.899 Other long term (current) drug therapy
CPT/HCPCS: 96365; J2185

== ENCOUNTER 2024-07-02 04:55 | Day surgery (SDC) | payer OTHER ==
[2024-07-02] MEDS ORDERED: Meropenem 1,000 MG in NS 100 ML IV SCH (06:00)
[2024-07-02 08:34] VITALS: BP 106/64
[2024-07-02 16:33] VITALS: BP 115/91
[2024-07-02 23:05] VITALS: BP 107/69
--- NOTE | 2024-07-02 23:45 | NUR ---
ABX STOP TIME 07/02/24 6460. PT PEARL WELL
== END 2024-07-02 23:00 | disposition home or self-care (01) ==
LOC: ATC 04:55
DX: N12 Tubulo-interstitial nephritis, not specified as acute or chronic (principal); B96.20 Unspecified Escherichia coli [E. coli] as the cause of diseases classified elsewhere; Z16.12 Extended spectrum beta lactamase (ESBL) resistance; G90.A Postural orthostatic tachycardia syndrome [POTS]; F43.10 Post-traumatic stress disorder, unspecified; Z87.891 Personal history of nicotine dependence; Z79.899 Other long term (current) drug therapy; Z88.0 Allergy status to penicillin; Z88.1 Allergy status to other antibiotic agents; Z88.2 Allergy status to sulfonamides; Z88.8 Allergy status to other drugs, medicaments and biological substances; Z91.040 Latex allergy status; Z91.018 Allergy to other foods; Z90.710 Acquired absence of both cervix and uterus
CPT/HCPCS: 96365; J2185

== ENCOUNTER 2024-07-03 02:43 | Day surgery (SDC) | payer OTHER ==
[~2024-07-03 02:43] MED LIST changes: +Meropenem 1,000 MG in NS 100 ML IV SCH
[2024-07-03 08:32] VITALS: BP 100/80
[2024-07-03 23:14] VITALS: BP 115/73
== END 2024-07-03 23:00 | disposition home or self-care (01) ==
LOC: ATC 02:43
DX: N12 Tubulo-interstitial nephritis, not specified as acute or chronic (principal); B96.29 Other Escherichia coli [E. coli] as the cause of diseases classified elsewhere; J45.909 Unspecified asthma, uncomplicated; G90.A Postural orthostatic tachycardia syndrome [POTS]; I73.00 Raynaud's syndrome without gangrene; Z87.891 Personal history of nicotine dependence; Z79.899 Other long term (current) drug therapy; Z88.0 Allergy status to penicillin; Z88.1 Allergy status to other antibiotic agents; Z88.2 Allergy status to sulfonamides; Z88.8 Allergy status to other drugs, medicaments and biological substances; Z91.018 Allergy to other foods; Z91.040 Latex allergy status
CPT/HCPCS: 96365; 96376; J2185

== ENCOUNTER 2024-07-04 04:29 | Day surgery (SDC) | payer OTHER ==
[2024-07-04 08:35] VITALS: BP 102/65
[2024-07-04 23:09] VITALS: BP 122/78
[2024-07-04 23:48] VITALS: BP 106/72
== END 2024-07-04 23:00 | disposition home or self-care (01) ==
LOC: ATC 04:29
DX: N12 Tubulo-interstitial nephritis, not specified as acute or chronic (principal); B96.20 Unspecified Escherichia coli [E. coli] as the cause of diseases classified elsewhere; Z16.12 Extended spectrum beta lactamase (ESBL) resistance; Z87.891 Personal history of nicotine dependence; Z88.0 Allergy status to penicillin; Z88.2 Allergy status to sulfonamides; Z88.1 Allergy status to other antibiotic agents; Z88.8 Allergy status to other drugs, medicaments and biological substances; Z79.899 Other long term (current) drug therapy
CPT/HCPCS: 96365; 96376; J2185

== ENCOUNTER 2024-07-05 03:04 | Day surgery (SDC) | payer OTHER ==
[2024-07-05 08:34] VITALS: BP 109/76
[2024-07-05 16:34] VITALS: BP 126/94
[2024-07-05 23:10] VITALS: BP 115/76
== END 2024-07-05 23:00 | disposition home or self-care (01) ==
LOC: ATC 03:04
DX: N10 Acute pyelonephritis (principal); B96.29 Other Escherichia coli [E. coli] as the cause of diseases classified elsewhere; F43.10 Post-traumatic stress disorder, unspecified; G90.A Postural orthostatic tachycardia syndrome [POTS]; J45.909 Unspecified asthma, uncomplicated; Z79.899 Other long term (current) drug therapy; Z88.0 Allergy status to penicillin; Z91.040 Latex allergy status; Z88.8 Allergy status to other drugs, medicaments and biological substances; Z88.2 Allergy status to sulfonamides
CPT/HCPCS: 96365; J2185

== ENCOUNTER → 2024-07-17 | Outpatient (CLI) | payer OTHER ==
[~2024-07-17] MED LIST changes: -Meropenem 1,000 MG in NS 100 ML IV SCH
== END ==
LOC: LAB SHORT 15:04 → LAB 15:04
DX: N39.0 Urinary tract infection, site not specified (principal)
CPT/HCPCS: 87077; 87086; 87186

== ENCOUNTER 2024-09-18 19:00 | Emergency (ER) | payer OTHER ==
[~2024-09-18] VITALS: Ht 167.6 cm; Wt 103.9 kg
[2024-09-18 19:55] VITALS: BP 140/81
== END 2024-09-18 20:16 | disposition home or self-care (01) ==
LOC: ER 19:00
DX: T83.84XA Pain due to genitourinary prosthetic devices, implants and grafts, initial encounter (principal); Z88.0 Allergy status to penicillin; Z91.040 Latex allergy status; Z88.2 Allergy status to sulfonamides; Z88.8 Allergy status to other drugs, medicaments and biological substances; Z88.1 Allergy status to other antibiotic agents; F43.10 Post-traumatic stress disorder, unspecified; J45.909 Unspecified asthma, uncomplicated; Z90.710 Acquired absence of both cervix and uterus; Z87.891 Personal history of nicotine dependence
CPT/HCPCS: 99283

== ENCOUNTER 2024-11-25 22:02 | Inpatient (IN) | payer OTHER ==
[~2024-11-25] VITALS: Ht 167.6 cm; Wt 111.8 kg
[~2024-11-25 22:02] MED LIST changes: +ADDERALL 10 MG10 MG PO; -AMPDEX10CR PO
[2024-11-25 22:39] LABS: BASOPHILS ABSOLUTE AUTO 0.02 K/mm3 (0.00-0.23); BASOPHILS PERCENT AUTO 0 % (0-2); EOSINOPHILS ABSOLUTE AUTO 0.07 K/mm3 (0.00-0.68); EOSINOPHILS PERCENT AUTO 1 % (0-6); Hematocrit 33.6 % (33.0-51.0); Hemoglobin 11.1 g/dL (11.5-16.0); IMMATURE GRAN ABSOLUTE AUTO 0.01 K/mm3 (0.00-0.10); IMMATURE GRAN PERCENT AUTO 0 % (0-1); LYMPHOCYTES ABSOLUTE AUTO 0.26 K/mm3 (0.84-5.20); LYMPHOCYTES PERCENT AUTO 3 % (21-46); MONOCYTES ABSOLUTE AUTO 0.04 K/mm3 (0.16-1.47); MONOCYTES PERCENT AUTO 1 % (4-13); Mean Corpuscular HGB Conc 33.0 g/dL (31.5-36.5); Mean Corpuscular Volume 92 fL (80-100); NEUTROPHILS ABSOLUTE AUTO 7.38 K/mm3 (1.96-9.15); NEUTROPHILS PERCENT AUTO 95 % (41-73); NRBC ABSOLUTE 0.00 K/mm3 (0.00-0.02); NRBC Auto 0.0 /100 WBC (0.0-0.2); Platelet Count 167 K/mm3 (150-400); RDW Coefficient Variation 12.6 % (11.7-14.2); RDW Standard Deviation 42.0 fL (35.1-46.3)
[2024-11-25 23:01] LABS: Alanine Aminotransfer (ALT/SGP 33.0 U/L (12-78); Albumin, Blood 3.2 g/dL (3.4-5.0); Albumin/Globulin Ratio 0.8 (0.8-1.8); Anion Gap 10.0 mmol/L (3-11); Aspartate Aminotrans (AST/SGOT 29.0 U/L (12-37); Bilirubin, Total 0.6 mg/dL (0.1-1.0); Blood Urea Nitrogen 8.0 mg/dL (8-24); CO2, Blood 20.0 mmol/L (21-32); Calcium, Blood 7.9 mg/dL (8.5-10.1); Chloride, Blood 112.0 mmol/L (98-108); Creatinine, Blood 0.77 mg/dL (0.40-1.00); Globulin, Blood 3.9 g/dL (2.2-4.0); Glucose, Blood 107.0 mg/dL (70-99); Potassium, Blood 3.9 mmol/L (3.5-5.5); Sodium, Blood 138.0 mmol/L (136-145); Total Protein, Blood 7.1 g/dL (6.4-8.2)
[2024-11-25] MEDS ORDERED: NS 1,000 ML IV SCH (23:05)
[2024-11-26] MEDS ORDERED: FentaNYL Citrate 50 MCG/ML 2 ML Injection IV PRN ×3 (00:15→03:20)
[2024-11-26] MEDS ORDERED: Ketorolac Tromethamine 15mg Vial IV ONE (00:15)
[2024-11-26 00:32] LABS: Source, Urine Clean Catch
[2024-11-26 00:36] LABS: Bilirubin, Urine Neg (Neg); Color, Urine Yellow (P-Yellow); Glucose Qualitative, Urine Neg (Neg); Ketones, Urine Neg (Neg); Leukocyte Esterase, Urine 3+ (Neg); Protein, Urine 2+ (Neg); Specific Gravity, Urine 1.010 (1.003-1.022); Urobilinogen, Urine NORM (Normal)
[2024-11-26 00:42] LABS: White Blood Cells, Urine TNTC /hpf (0-5)
[2024-11-26] MEDS ORDERED: NS 1,000 ML IV SCH (03:15)
[2024-11-26] MEDS ORDERED: Ondansetron HCl 2 MG / ML 2ML Vial IV PRN ×2 (03:20→08:50)
[2024-11-26 03:45] VITALS: BP 102/79
[2024-11-26] MEDS ORDERED: OxyCODONE 5 mg/Acetamin 325 mg TABLET PO PRN (06:10)
[2024-11-26] MEDS ORDERED: Albuterol 2.5 MG/3 ML VIAL INH PRN (06:15)
[2024-11-26] MEDS ORDERED: Budesonide 0.25 MG / 2 ML RESP INH SCH (06:15)
[2024-11-26] MEDS ORDERED: HYDROmorphone HCl/Pf 1MG SYR IV PRN (06:15)
--- NOTE | 2024-11-26 06:43 | NUR ---
SUMMARY: PT ARRIVES FROM ER. ADMITTED FOR UTI. GIVEN ABX, ON IV FLUIDS, AOX4, SBA, ABLE TO CALL APPROPRIATELY. MEDICATED FOR PAIN AND NAUSEA PER EMAR. CALL LIGHT WITHIN REACH AND BED IN LOW POSITION.
[2024-11-26] MEDS ORDERED: HYDROmorphone HCl/Pf 1MG SYR IV ONE (07:00)
[2024-11-26 07:27] LABS: BASOPHILS ABSOLUTE AUTO 0.03 K/mm3 (0.00-0.23); BASOPHILS PERCENT AUTO 0 % (0-2); EOSINOPHILS ABSOLUTE AUTO 0.04 K/mm3 (0.00-0.68); EOSINOPHILS PERCENT AUTO 0 % (0-6); Hematocrit 32.4 % (33.0-51.0); Hemoglobin 10.4 g/dL (11.5-16.0); IMMATURE GRAN ABSOLUTE AUTO 0.05 K/mm3 (0.00-0.10); IMMATURE GRAN PERCENT AUTO 0 % (0-1); LYMPHOCYTES ABSOLUTE AUTO 0.79 K/mm3 (0.84-5.20); LYMPHOCYTES PERCENT AUTO 6 % (21-46); MONOCYTES ABSOLUTE AUTO 0.21 K/mm3 (0.16-1.47); MONOCYTES PERCENT AUTO 2 % (4-13); Mean Corpuscular HGB Conc 32.1 g/dL (31.5-36.5); Mean Corpuscular Volume 95 fL (80-100); NEUTROPHILS ABSOLUTE AUTO 11.20 K/mm3 (1.96-9.15); NEUTROPHILS PERCENT AUTO 91 % (41-73); NRBC ABSOLUTE 0.00 K/mm3 (0.00-0.02); NRBC Auto 0.0 /100 WBC (0.0-0.2); Platelet Count 146 K/mm3 (150-400); RDW Coefficient Variation 13.0 % (11.7-14.2); RDW Standard Deviation 45.1 fL (35.1-46.3)
[2024-11-26 07:55] LABS: Alanine Aminotransfer (ALT/SGP 28.0 U/L (12-78); Albumin, Blood 2.9 g/dL (3.4-5.0); Albumin/Globulin Ratio 0.9 (0.8-1.8); Anion Gap 8.0 mmol/L (3-11); Aspartate Aminotrans (AST/SGOT 18.0 U/L (12-37); Bilirubin, Total 0.5 mg/dL (0.1-1.0); Blood Urea Nitrogen 8.0 mg/dL (8-24); CO2, Blood 24.0 mmol/L (21-32); Calcium, Blood 7.3 mg/dL (8.5-10.1); Chloride, Blood 112.0 mmol/L (98-108); Creatinine, Blood 0.69 mg/dL (0.40-1.00); Globulin, Blood 3.3 g/dL (2.2-4.0); Glucose, Blood 107.0 mg/dL (70-99); Potassium, Blood 3.8 mmol/L (3.5-5.5); Sodium, Blood 140.0 mmol/L (136-145); Total Protein, Blood 6.2 g/dL (6.4-8.2)
[2024-11-26 08:05] VITALS: BP 90/54
[2024-11-26] MEDS ORDERED: Enoxaparin 40 MG/0.4 ML SYR SC SCH (09:00)
[2024-11-26] MEDS ORDERED: Amphet Asp/Amphet/D-Amphet 10 MG CapCR PO SCH (09:00)
[2024-11-26] MEDS ORDERED: Lactobacil 2-S.Thermo-Bifido 1 1 Cap PO SCH (09:00)
[2024-11-26] MEDS ORDERED: Ketorolac Tromethamine 30mg Vial IV PRN (10:35)
--- NOTE | 2024-11-26 12:09 | NUR ---
CLARISSA CALLED AND NOTIFIED THAT THE PATIENT HAS GRAM NEG. BACILLI RODS X1 DR. RED NOTIFIED.
[2024-11-26 17:48] VITALS: BP 92/63
--- NOTE | 2024-11-26 18:45 | NUR ---
SHIFT SUMMARY: NO EVENTS OR CHANGES WITH THE PATIENT THROUGHOUT THE SHIFT. CONTINUES TO GET IV ANTIBIOTICS SCHEDULED, PAIN MEDICATION, AND ANTINAUSEAAS NEEDED. SHE IS IN BED RESTING WITH HER SIGNIFICANT OTHER, NO SIGNS OR SYMPTOMS DISTRESS, NO TELE EVENTS, CALL LIGHT WITHIN REACH, PLAN OF CARE ONGOING.
[2024-11-26 19:26] VITALS: BP 116/80
--- NOTE | 2024-11-26 19:41 | NUR ---
POSITIVE BLOOD CULTURES: CALL PLACED TO ABOUT POSITIVE BLOOD CULTURES. NO NEW ORDERS. NOTIFIED MS AT 1932 ON 11/26/24 BY TELEPHONE. CHARGE NURSES NOTIFIED AT 1929 AT 11/26/24
[2024-11-26] MEDS ORDERED: Metoclopramide HCl 5MG / ML 2ML Vial IV PRN (23:10)
[2024-11-26] MEDS ORDERED: NS 250 ML IV PRN (23:15)
--- NOTE | 2024-11-27 01:31 | NUR ---
ASSUMED CARE OF PATIENT. PATIENT C/O OF PAIN AND NAUSEA. CALLED DR Astorga NEW ORDER RECEIVED. MEDS GIVEN PATIENT ABLE TO SLEEP. WILL CONTINUE TO MONITOR FOR PAIN AND NAUSEA.
[2024-11-27 04:39] LABS: BASOPHILS ABSOLUTE AUTO 0.02 K/mm3 (0.00-0.23); BASOPHILS PERCENT AUTO 0 % (0-2); EOSINOPHILS ABSOLUTE AUTO 0.21 K/mm3 (0.00-0.68); EOSINOPHILS PERCENT AUTO 3 % (0-6); Hematocrit 29.3 % (33.0-51.0); Hemoglobin 9.2 g/dL (11.5-16.0); IMMATURE GRAN ABSOLUTE AUTO 0.03 K/mm3 (0.00-0.10); IMMATURE GRAN PERCENT AUTO 0 % (0-1); LYMPHOCYTES ABSOLUTE AUTO 1.04 K/mm3 (0.84-5.20); LYMPHOCYTES PERCENT AUTO 13 % (21-46); MONOCYTES ABSOLUTE AUTO 0.67 K/mm3 (0.16-1.47); MONOCYTES PERCENT AUTO 9 % (4-13); Mean Corpuscular HGB Conc 31.4 g/dL (31.5-36.5); Mean Corpuscular Volume 96 fL (80-100); NEUTROPHILS ABSOLUTE AUTO 5.90 K/mm3 (1.96-9.15); NEUTROPHILS PERCENT AUTO 75 % (41-73); NRBC ABSOLUTE 0.00 K/mm3 (0.00-0.02); NRBC Auto 0.0 /100 WBC (0.0-0.2); Platelet Count 127 K/mm3 (150-400); RDW Coefficient Variation 13.0 % (11.7-14.2); RDW Standard Deviation 46.2 fL (35.1-46.3)
[2024-11-27 04:54] VITALS: BP 103/67
[2024-11-27 04:58] LABS: Alanine Aminotransfer (ALT/SGP 22.0 U/L (12-78); Albumin, Blood 2.6 g/dL (3.4-5.0); Albumin/Globulin Ratio 0.8 (0.8-1.8); Anion Gap 9.0 mmol/L (3-11); Aspartate Aminotrans (AST/SGOT 13.0 U/L (12-37); Bilirubin, Total 0.2 mg/dL (0.1-1.0); Blood Urea Nitrogen 8.0 mg/dL (8-24); CO2, Blood 23.0 mmol/L (21-32); Calcium, Blood 7.2 mg/dL (8.5-10.1); Chloride, Blood 112.0 mmol/L (98-108); Creatinine, Blood 0.73 mg/dL (0.40-1.00); Globulin, Blood 3.4 g/dL (2.2-4.0); Glucose, Blood 106.0 mg/dL (70-99); Potassium, Blood 3.9 mmol/L (3.5-5.5); Sodium, Blood 140.0 mmol/L (136-145); Total Protein, Blood 6.0 g/dL (6.4-8.2)
[2024-11-27 14:35] VITALS: BP 122/71
[2024-11-27] MEDS ORDERED: Adderall 5 MG Ta5 MG PO (17:05)
[2024-11-27] MEDS ORDERED: ERTAPENEM1 G6 IV (17:07)
--- NOTE | 2024-11-27 17:48 | NUR ---
DISCHARGE NOTE: WENT OVER DISCHARGE WITH THE PATIENT. TELE REMOVE, POWERGLIDE IN PLACE FOR SETH INFUSION STARTING 11/28/24. PATIENT DRESSED AND COLLECTED BELONGINGS. PATIENT REQUEST TO WALK. NO SIGNS OR SYMPTOMS OF DISTRESS WITH DISCHARGE.
== END 2024-11-27 18:36 | disposition home or self-care (01) | DRG 872 ==
LOC: ER 22:02 → MEDS 11-26 02:13
PROVIDERS: Student in an Organized Health Care Education/Training Program; ADMIT Internal Medicine
DX: A41.51 Sepsis due to Escherichia coli [E. coli] (principal); N10 Acute pyelonephritis; Z16.12 Extended spectrum beta lactamase (ESBL) resistance; E87.20 Acidosis, unspecified; J45.909 Unspecified asthma, uncomplicated; E86.0 Dehydration; F43.10 Post-traumatic stress disorder, unspecified; F41.9 Anxiety disorder, unspecified; F32.A Depression, unspecified; G47.00 Insomnia, unspecified; I73.00 Raynaud's syndrome without gangrene; R65.20 Severe sepsis without septic shock; G90.A Postural orthostatic tachycardia syndrome [POTS]; Z87.440 Personal history of urinary (tract) infections; Z91.040 Latex allergy status; Z88.2 Allergy status to sulfonamides; Z88.8 Allergy status to other drugs, medicaments and biological substances; Z88.1 Allergy status to other antibiotic agents; Z88.0 Allergy status to penicillin; Z79.51 Long term (current) use of inhaled steroids; Z87.891 Personal history of nicotine dependence
CPT/HCPCS: 36415; 74177; 76770; 80053; 81001; 81025; 83605; 83880; 85025; 87040; 87077; 87086; 87186; 93005; 93010; 94640; 94664; 94760; 94762; 96374-59; 96375; 99285-25; A9270; C1751; J1171; J1650; J1885; J2185; J2405; J2765; J3010; J7030; J7050; Q9967

== ENCOUNTER 2024-11-28 08:39 | Day surgery (SDC) | payer OTHER ==
[~2024-11-28 08:39] MED LIST changes: +Adderall 5 MG Ta5 MG PO; +ERTAPENEM1 G6 IV
[2024-11-28] MEDS ORDERED: Ertapenem Sodium 1,000 MG in NS 50 ML IV SCH (08:50)
[2024-11-28 11:30] VITALS: BP 126/95
== END 2024-11-28 11:56 | disposition home or self-care (01) ==
LOC: ATC 08:39
DX: N10 Acute pyelonephritis (principal); Z16.12 Extended spectrum beta lactamase (ESBL) resistance; J45.909 Unspecified asthma, uncomplicated; I25.2 Old myocardial infarction; Z87.891 Personal history of nicotine dependence; Z79.899 Other long term (current) drug therapy; Z88.0 Allergy status to penicillin; Z88.1 Allergy status to other antibiotic agents; Z88.2 Allergy status to sulfonamides; Z88.8 Allergy status to other drugs, medicaments and biological substances; Z91.018 Allergy to other foods; Z91.040 Latex allergy status
CPT/HCPCS: 96365; J1335

== ENCOUNTER 2024-11-29 02:07 | Day surgery (SDC) | payer OTHER ==
[~2024-11-29 02:07] MED LIST changes: +Ertapenem Sodium 1,000 MG in NS 50 ML IV SCH
[2024-11-29 11:43] VITALS: BP 126/86
== END 2024-11-29 11:59 | disposition home or self-care (01) ==
LOC: ATC 02:07
DX: N10 Acute pyelonephritis (principal); B96.89 Other specified bacterial agents as the cause of diseases classified elsewhere; Z16.12 Extended spectrum beta lactamase (ESBL) resistance; F43.10 Post-traumatic stress disorder, unspecified; I25.2 Old myocardial infarction; F32.A Depression, unspecified; J45.909 Unspecified asthma, uncomplicated; Z79.899 Other long term (current) drug therapy; Z87.891 Personal history of nicotine dependence; Z88.0 Allergy status to penicillin; Z88.1 Allergy status to other antibiotic agents; Z88.2 Allergy status to sulfonamides; Z91.040 Latex allergy status; Z91.018 Allergy to other foods; Z90.710 Acquired absence of both cervix and uterus
CPT/HCPCS: 96365; J1335

== ENCOUNTER 2024-11-30 04:16 | Day surgery (SDC) | payer OTHER ==
[2024-11-30 11:39] VITALS: BP 123/83
== END 2024-11-30 11:56 | disposition home or self-care (01) ==
LOC: ATC 04:16
DX: N10 Acute pyelonephritis (principal); Z16.12 Extended spectrum beta lactamase (ESBL) resistance; J45.909 Unspecified asthma, uncomplicated; I25.2 Old myocardial infarction; Z87.891 Personal history of nicotine dependence; Z88.0 Allergy status to penicillin; Z88.1 Allergy status to other antibiotic agents; Z88.2 Allergy status to sulfonamides; Z88.8 Allergy status to other drugs, medicaments and biological substances; Z91.018 Allergy to other foods; Z91.040 Latex allergy status; Z79.899 Other long term (current) drug therapy
CPT/HCPCS: 96365; J1335

== ENCOUNTER 2024-12-01 00:29 | Day surgery (SDC) | payer OTHER ==
[~2024-12-01 00:29] MED LIST changes: -Ertapenem Sodium 1,000 MG in NS 50 ML IV SCH
[2024-12-01] MEDS ORDERED: Ertapenem Sodium 1,000 MG in NS 50 ML IV SCH (01:00)
[2024-12-01 11:38] VITALS: BP 137/95
== END 2024-12-01 12:00 | disposition home or self-care (01) ==
LOC: ATC 00:29
DX: N10 Acute pyelonephritis (principal); Z16.12 Extended spectrum beta lactamase (ESBL) resistance; J45.909 Unspecified asthma, uncomplicated; I25.2 Old myocardial infarction; Z87.891 Personal history of nicotine dependence; Z79.899 Other long term (current) drug therapy; Z88.0 Allergy status to penicillin; Z88.1 Allergy status to other antibiotic agents; Z88.2 Allergy status to sulfonamides; Z88.8 Allergy status to other drugs, medicaments and biological substances; Z91.018 Allergy to other foods; Z91.040 Latex allergy status
CPT/HCPCS: 96365; J1335

== ENCOUNTER 2024-12-02 00:49 | Day surgery (SDC) | payer OTHER ==
[2024-12-02] MEDS ORDERED: Ertapenem Sodium 1,000 MG in NS 50 ML IV SCH (01:00)
[2024-12-02 11:39] VITALS: BP 129/88
== END 2024-12-02 11:57 | disposition home or self-care (01) ==
LOC: ATC 00:49
DX: N10 Acute pyelonephritis (principal); Z16.12 Extended spectrum beta lactamase (ESBL) resistance; Z88.0 Allergy status to penicillin; Z88.1 Allergy status to other antibiotic agents; Z88.2 Allergy status to sulfonamides; Z88.8 Allergy status to other drugs, medicaments and biological substances; Z91.040 Latex allergy status; Z91.018 Allergy to other foods; J45.909 Unspecified asthma, uncomplicated; Z79.899 Other long term (current) drug therapy
CPT/HCPCS: 96365; J1335

== ENCOUNTER → 2024-12-02 | Outpatient (CLI) | payer OTHER ==
[2024-12-02 21:17] LABS: Bacterial Vaginosis PCR Negative (NEGATIVE); Candida glabrata-krusei, PCR NOT DETECTED (NOT DETECT)
[2024-12-03 00:11] LABS: Candida Group, PCR DETECTED (NOT DETECT)
== END ==
LOC: LAB 17:33 → LAB SHORT 17:33
DX: N89.8 Other specified noninflammatory disorders of vagina (principal)
CPT/HCPCS: 81515

== ENCOUNTER 2024-12-03 04:23 | Day surgery (SDC) | payer OTHER ==
[2024-12-03] MEDS ORDERED: Ertapenem Sodium 1,000 MG in NS 50 ML IV SCH (06:00)
[2024-12-03 11:32] VITALS: BP 139/96
[2024-12-03 13:37] LABS: BASOPHILS ABSOLUTE AUTO 0.03 K/mm3 (0.00-0.23); BASOPHILS PERCENT AUTO 0 % (0-2); EOSINOPHILS ABSOLUTE AUTO 0.53 K/mm3 (0.00-0.68); EOSINOPHILS PERCENT AUTO 7 % (0-6); Hematocrit 37.3 % (33.0-51.0); Hemoglobin 12.3 g/dL (11.5-16.0); IMMATURE GRAN ABSOLUTE AUTO 0.05 K/mm3 (0.00-0.10); IMMATURE GRAN PERCENT AUTO 1 % (0-1); LYMPHOCYTES ABSOLUTE AUTO 1.58 K/mm3 (0.84-5.20); LYMPHOCYTES PERCENT AUTO 20 % (21-46); MONOCYTES ABSOLUTE AUTO 0.33 K/mm3 (0.16-1.47); MONOCYTES PERCENT AUTO 4 % (4-13); Mean Corpuscular HGB Conc 33.0 g/dL (31.5-36.5); Mean Corpuscular Volume 90 fL (80-100); NEUTROPHILS ABSOLUTE AUTO 5.25 K/mm3 (1.96-9.15); NEUTROPHILS PERCENT AUTO 68 % (41-73); NRBC ABSOLUTE 0.00 K/mm3 (0.00-0.02); NRBC Auto 0.0 /100 WBC (0.0-0.2); Platelet Count 355 K/mm3 (150-400); RDW Coefficient Variation 12.2 % (11.7-14.2); RDW Standard Deviation 40.3 fL (35.1-46.3)
== END 2024-12-03 11:15 | disposition home or self-care (01) ==
LOC: ATC 04:23
DX: N10 Acute pyelonephritis (principal); F32.A Depression, unspecified; F43.10 Post-traumatic stress disorder, unspecified; G47.00 Insomnia, unspecified; I25.2 Old myocardial infarction; I73.00 Raynaud's syndrome without gangrene; F41.9 Anxiety disorder, unspecified; Z79.899 Other long term (current) drug therapy; Z88.0 Allergy status to penicillin; Z88.2 Allergy status to sulfonamides; Z88.1 Allergy status to other antibiotic agents; Z88.8 Allergy status to other drugs, medicaments and biological substances; Z91.040 Latex allergy status; Z91.018 Allergy to other foods; Z90.710 Acquired absence of both cervix and uterus
CPT/HCPCS: 85025; 96365; J1335

== ENCOUNTER 2024-12-04 03:25 | Day surgery (SDC) | payer OTHER ==
[~2024-12-04 03:25] MED LIST changes: +Ertapenem Sodium 1,000 MG in NS 50 ML IV SCH
[2024-12-04 11:51] VITALS: BP 128/83
== END 2024-12-04 12:02 | disposition home or self-care (01) ==
LOC: ATC 03:25
DX: N10 Acute pyelonephritis (principal); B96.89 Other specified bacterial agents as the cause of diseases classified elsewhere; Z16.12 Extended spectrum beta lactamase (ESBL) resistance; F43.10 Post-traumatic stress disorder, unspecified; F32.A Depression, unspecified; I25.2 Old myocardial infarction; Z87.891 Personal history of nicotine dependence; Z79.899 Other long term (current) drug therapy; Z88.0 Allergy status to penicillin; Z88.2 Allergy status to sulfonamides; Z88.1 Allergy status to other antibiotic agents; Z88.8 Allergy status to other drugs, medicaments and biological substances; Z91.040 Latex allergy status; Z91.018 Allergy to other foods; Z90.710 Acquired absence of both cervix and uterus
CPT/HCPCS: 96365; J1335

== ENCOUNTER 2024-12-05 01:44 | Day surgery (SDC) | payer OTHER ==
[2024-12-05 11:41] VITALS: BP 108/81
== END 2024-12-05 12:00 | disposition home or self-care (01) ==
LOC: ATC 01:44
DX: N10 Acute pyelonephritis (principal); B96.89 Other specified bacterial agents as the cause of diseases classified elsewhere; Z16.12 Extended spectrum beta lactamase (ESBL) resistance; F43.10 Post-traumatic stress disorder, unspecified; I25.2 Old myocardial infarction; G47.00 Insomnia, unspecified; F32.A Depression, unspecified; J45.909 Unspecified asthma, uncomplicated; Z87.891 Personal history of nicotine dependence; Z88.0 Allergy status to penicillin; Z88.2 Allergy status to sulfonamides; Z88.1 Allergy status to other antibiotic agents; Z88.8 Allergy status to other drugs, medicaments and biological substances; Z91.040 Latex allergy status; Z91.018 Allergy to other foods
CPT/HCPCS: 96365; J1335

== ENCOUNTER 2024-12-06 00:35 | Day surgery (SDC) | payer OTHER ==
[~2024-12-06 00:35] MED LIST changes: -Ertapenem Sodium 1,000 MG in NS 50 ML IV SCH
[2024-12-06] MEDS ORDERED: Ertapenem Sodium 1,000 MG in NS 50 ML IV SCH (01:00)
[2024-12-06 11:35] VITALS: BP 110/77
== END 2024-12-06 11:50 | disposition home or self-care (01) ==
LOC: ATC 00:35
DX: N10 Acute pyelonephritis (principal); Z16.12 Extended spectrum beta lactamase (ESBL) resistance; J45.909 Unspecified asthma, uncomplicated; Z79.899 Other long term (current) drug therapy; Z88.0 Allergy status to penicillin; Z88.2 Allergy status to sulfonamides; Z88.1 Allergy status to other antibiotic agents; Z88.8 Allergy status to other drugs, medicaments and biological substances; Z91.040 Latex allergy status; Z91.018 Allergy to other foods; Z87.891 Personal history of nicotine dependence
CPT/HCPCS: 96365; J1335

== ENCOUNTER 2024-12-07 02:50 | Day surgery (SDC) | payer OTHER ==
[~2024-12-07 02:50] MED LIST changes: +Ertapenem Sodium 1,000 MG in NS 50 ML IV SCH
[2024-12-07 11:37] VITALS: BP 111/84
== END 2024-12-07 11:54 | disposition home or self-care (01) ==
LOC: ATC 02:50
DX: N10 Acute pyelonephritis (principal); J45.909 Unspecified asthma, uncomplicated; Z79.899 Other long term (current) drug therapy; Z88.0 Allergy status to penicillin; Z88.1 Allergy status to other antibiotic agents; Z88.2 Allergy status to sulfonamides; Z88.8 Allergy status to other drugs, medicaments and biological substances; Z91.040 Latex allergy status; Z91.018 Allergy to other foods; Z87.891 Personal history of nicotine dependence
CPT/HCPCS: 96365; J1335

== ENCOUNTER 2024-12-08 11:27 | Day surgery (SDC) | payer OTHER ==
[2024-12-08 11:31] VITALS: BP 113/95
== END 2024-12-08 11:49 | disposition home or self-care (01) ==
LOC: ATC 11:27
DX: N10 Acute pyelonephritis (principal); B96.89 Other specified bacterial agents as the cause of diseases classified elsewhere; Z16.12 Extended spectrum beta lactamase (ESBL) resistance; F43.10 Post-traumatic stress disorder, unspecified; I25.2 Old myocardial infarction; F32.A Depression, unspecified; Z79.899 Other long term (current) drug therapy; Z87.891 Personal history of nicotine dependence; Z88.0 Allergy status to penicillin; Z88.1 Allergy status to other antibiotic agents; Z88.2 Allergy status to sulfonamides; Z88.8 Allergy status to other drugs, medicaments and biological substances; Z91.018 Allergy to other foods; Z91.040 Latex allergy status
CPT/HCPCS: 96374; J1335

== ENCOUNTER 2024-12-09 01:58 | Day surgery (SDC) | payer OTHER ==
[2024-12-09 11:40] VITALS: BP 130/90
== END 2024-12-09 12:01 | disposition home or self-care (01) ==
LOC: ATC 01:58
DX: N10 Acute pyelonephritis (principal); B96.89 Other specified bacterial agents as the cause of diseases classified elsewhere; Z16.12 Extended spectrum beta lactamase (ESBL) resistance; I25.2 Old myocardial infarction; F43.10 Post-traumatic stress disorder, unspecified; F32.A Depression, unspecified; G47.00 Insomnia, unspecified; I73.00 Raynaud's syndrome without gangrene; Z79.899 Other long term (current) drug therapy; Z87.891 Personal history of nicotine dependence; Z88.0 Allergy status to penicillin; Z88.2 Allergy status to sulfonamides; Z88.1 Allergy status to other antibiotic agents; Z88.8 Allergy status to other drugs, medicaments and biological substances; Z91.018 Allergy to other foods; Z91.040 Latex allergy status
CPT/HCPCS: 96365; J1335

== ENCOUNTER 2024-12-16 22:50 | Emergency (ER) | payer OTHER ==
[~2024-12-16] VITALS: Ht 167.6 cm; Wt 106.6 kg
[~2024-12-16 22:50] MED LIST changes: -Ertapenem Sodium 1,000 MG in NS 50 ML IV SCH
[2024-12-16 23:31] VITALS: BP 122/74
[2024-12-17 01:16] LABS: Source, Urine Clean Catch
[2024-12-17 01:23] LABS: Bilirubin, Urine Neg (Neg); Color, Urine Yellow (P-Yellow); Glucose Qualitative, Urine Neg (Neg); Ketones, Urine 1+ (Neg); Leukocyte Esterase, Urine 3+ (Neg); Protein, Urine 4+ (Neg); Specific Gravity, Urine 1.020 (1.003-1.022); Urobilinogen, Urine NORM (Normal)
[2024-12-17 01:38] LABS: White Blood Cells, Urine TNTC /hpf (0-5)
== END 2024-12-17 02:02 | disposition left against medical advice (07) ==
LOC: ER 22:50
PROVIDERS: Student in an Organized Health Care Education/Training Program
DX: R31.9 Hematuria, unspecified (principal); Z53.21 Procedure and treatment not carried out due to patient leaving prior to being seen by health care provider
CPT/HCPCS: 81001; 87086; 99281

== ENCOUNTER 2025-02-14 03:54 | Day surgery (SDC) | payer OTHER ==
[2025-02-14] MEDS ORDERED: NS 1,000 ML IV SCH (06:00)
[2025-02-14 07:49] VITALS: BP 116/77
== END 2025-02-14 09:06 | disposition home or self-care (01) ==
LOC: ATC 03:54
DX: G90.A Postural orthostatic tachycardia syndrome [POTS] (principal); E89.0 Postprocedural hypothyroidism; Z88.0 Allergy status to penicillin; Z88.8 Allergy status to other drugs, medicaments and biological substances; Z91.018 Allergy to other foods; Z88.2 Allergy status to sulfonamides; Z87.891 Personal history of nicotine dependence
CPT/HCPCS: 96360; J7030

== ENCOUNTER 2025-02-19 00:53 | Day surgery (SDC) | payer OTHER ==
[2025-02-19] MEDS ORDERED: NS 1,000 ML IV SCH (06:00)
[2025-02-19 09:55] VITALS: BP 108/61
== END 2025-02-19 11:04 | disposition home or self-care (01) ==
LOC: ATC 00:53
DX: G90.A Postural orthostatic tachycardia syndrome [POTS] (principal); E86.0 Dehydration; J45.909 Unspecified asthma, uncomplicated; I25.2 Old myocardial infarction; I73.00 Raynaud's syndrome without gangrene; Z87.440 Personal history of urinary (tract) infections; Z87.891 Personal history of nicotine dependence; Z79.899 Other long term (current) drug therapy; Z88.0 Allergy status to penicillin; Z88.1 Allergy status to other antibiotic agents; Z88.2 Allergy status to sulfonamides; Z88.8 Allergy status to other drugs, medicaments and biological substances; Z91.018 Allergy to other foods; Z91.040 Latex allergy status
CPT/HCPCS: 96360; J7030

== ENCOUNTER 2025-03-03 01:29 | Day surgery (SDC) | payer OTHER ==
[2025-03-03] MEDS ORDERED: NS 1,000 ML IV SCH (06:00)
[2025-03-03 15:06] VITALS: BP 115/87
== END 2025-03-03 16:42 | disposition home or self-care (01) ==
LOC: ATC 01:29
DX: G90.A Postural orthostatic tachycardia syndrome [POTS] (principal); E86.0 Dehydration; R63.39 Other feeding difficulties; F43.10 Post-traumatic stress disorder, unspecified; I25.2 Old myocardial infarction; I73.00 Raynaud's syndrome without gangrene; G47.00 Insomnia, unspecified; F41.9 Anxiety disorder, unspecified; F32.A Depression, unspecified; Z79.899 Other long term (current) drug therapy; Z88.0 Allergy status to penicillin; Z88.2 Allergy status to sulfonamides; Z88.1 Allergy status to other antibiotic agents; Z88.8 Allergy status to other drugs, medicaments and biological substances; Z91.040 Latex allergy status; Z91.018 Allergy to other foods; Z87.891 Personal history of nicotine dependence
CPT/HCPCS: 36591; 96360; J7030

== ENCOUNTER → 2025-04-08 | Outpatient (CLI) | payer OTHER | END | disposition home or self-care (01) | LOC: LAB SHORT 17:57 → LAB 17:57 | DX: N39.0 Urinary tract infection, site not specified (principal); R31.9 Hematuria, unspecified | CPT/HCPCS: 87077; 87086; 87186 ==